=== PATIENT | female | born 1990 | race Caucasian/White ===

== ENCOUNTER → 2018-02-15 16:01 | Outpatient (CLI) | payer OTHER, SELFPAY ==
[2018-02-23 14:37] LABS: HPV Reflexed? NOT INDICATED
== END ==
PROVIDERS: Visit Provider Obstetrics & Gynecology
DX: Z12.4 Encounter for screening for malignant neoplasm of cervix (principal)
CPT/HCPCS: 88175; G0145

== ENCOUNTER → 2018-05-16 15:49 | Outpatient (CLI) | payer OTHER, SELFPAY ==
[2018-05-16 20:01] LABS: Chlamydia Trachomatis by PCR Negative (Negative); Neisserai gonorrhoeae by PCR Negative (Negative); Probe Check PASS; Sample Adequacy Control PASS; Specimen Processing Control PASS
== END ==
PROVIDERS: Visit Provider Obstetrics & Gynecology
DX: Z11.3 Encounter for screening for infections with a predominantly sexual mode of transmission (principal)
CPT/HCPCS: 87491; 87591

== ENCOUNTER → 2018-05-30 15:40 | Outpatient (CLI) | payer OTHER, SELFPAY ==
[2018-05-30 18:01] LABS: Color, Urine Yellow (Yellow); Glucose, Dipstick Normal (Normal); Ketone-Dipstick Negative (Negative); Leukocyte Esterase-Dipstick 100 /ul (Negative); Nitrite-Dipstick Negative (Negative); Occult Blood-Urine Negative /ul (Negative); Protein-Dipstick Negative (Negative); Specific Gravity, Urine 1.015 (1.002-1.030); Urine Bilirubin Dipstick Negative (Negative); Urine Clarity Clear (Clear); Urine Urobilinogen Normal (Normal)
[2018-05-30 18:02] LABS: Absolute Lymphocyte Count 1.58 X10^3/ul (0.83-4.51); Absolute Neutrophil Count 8.4 X10^3/uL (2.0-7.7); Basophil# 0.03 X10^3/uL; Basophil% 0.3 % (0-1); Eosinophil# 0.03 X10^3/uL; Eosinophils% 0.3 % (0-5); Hematocrit 34.9 % (37-47); Hemoglobin 11.8 g/dl (12.0-15.0); Lymphocyte # 1.58 X10^3/ul (4.0); Lymphocyte % 14.6 % (19-41); Mean Corp Hgb Conc 33.8 g/gl (32-36); Mean Corpuscular Hgb 30.4 pg (27.0-32.0); Mean Corpuscular Volume 89.9 fL (81-99); Monocyte# 0.75 X10^3/uL; Monocyte% 6.9 % (0-10); Neutrophil # 8.43 X10^3/uL (2.7-7.7); Neutrophil % 77.7 % (47-70); Platelet Count 346 K/mm3 (150-450); RBC Distribution Width CV 12.8 % (11.6-14.6); RBC Distribution Width SD 41.4 fl (35.1-43.9); Red Blood Count 3.88 M/mm3 (4.2-5.4); White Blood Count 10.8 K/mm3 (4.4-11.0)
[2018-05-30 18:04] LABS: POSITIVE COUNT NO; POSITIVE DIFFERENTIAL NO; POSITIVE MORPHOLOGY NO
[2018-05-30 18:24] LABS: Thyroid Stim Hormone (TSH) 1.63 uIU/mL (0.358-3.74)
[2018-05-30 18:30] LABS: Amphetamine Urine VISTA NEGATIVE (<1000 ng/mL); Barbiturate Urine VISTA NEGATIVE (< 200 ng/mL); Benzodiazepine Urine VISTA NEGATIVE (< 200 ng/mL); Cocaine Urine VISTA NEGATIVE (< 300 ng/mL); Ecstacy Urine VISTA NEGATIVE (< 500 ng/mL); Methadone Urine VISTA NEGATIVE (< 300 ng/mL); PCP Urine VISTA NEGATIVE (< 25 ng/mL); THC Urine VISTA NEGATIVE (< 50 ng/mL); Vista UDS pH Range 6
[2018-05-30 19:04] LABS: HIV - WCH Non-Reactive (Nonreactive); Rubella IgG 231.3 IU/mL
[2018-06-01 10:37] LABS: HEPATITIS B SURFACE AG Negative (Negative); Hep C Antibodies 0.1 s/co ratio (0.0-0.9)
[2018-06-02 01:10] LABS: Prenatal RPR NONREACTIVE (NONREACTIVE)
--- OUTSIDE RECORDS SUMMARY | 2018-08-01 21:44 | XMS RPT_ITS ---
:1990 Author Organization [facility] Care Team Providers Name Role Phone Monica Love Attending Unavailable Monica Love Attending Unavailable Merlyn Mcgee Attending Unavailable PROBLEMS PROBLEMS DATE TYPE CONDITION / CODE ATTENDING STATUS SOURCE 05/30/2018 Unknown Z34.81 - Encounter Monica Love Active Shanna for supervision of Community other normal Hospital , first Repository trimester / Z34.81(ICD-10) 05/16/2018 Unknown Z11.3 - Encounter Monica Love for screening for Community infections with a Hospital predominantly Repository sexual mode of transmission / Z11.3(ICD-10) 02/15/2018 Unknown Z12.4 - Encounter Merlyn Mcgee for screening for Community malignant neoplasm Hospital of cervix / Repository Z12.4(ICD-10) PROCEDURES PROCEDURES No Procedure Records FoundRESULTS RESULTS URINE DRUG SCREEN Collected: 05/30/2018 Status: F Source: [place] (ОЛЕГ) 3:43 PM [facility] RE[facility]ITORY Order Comment: List of Drugs Taken or Suspected? UNK TYPE CODE TESTS RESULT OUT OF RANGE REFERENCE UNITS LAB L505.0075 TO BE Normal CONFIRMED Result Comment: CONFIRMATORY TESTING FOR ALL POSITIVE URINE DRUG SCREEN RESULTS WILL ONLY BE SENT OUT UPON PHYSICIAN ORDER. ОЛЕГ Urine Drug Screen methods provide only preliminary analytical test results. A more specific alternate chemical method must be used in order to obtain a confirmed analytical result. Gas chromatography/mass spectrometery (GC/MS) is the preferred confirmatory method. Clinical consideration and professional judgement should be applied to any drug of abuse test result, particularly when preliminary positive results are used. URINE TCA TESTING MUST BE ORDERED SEPARATELY. USE TEST MNEMONIC: [facility] LAB L505.5005 VISTA UDS PH 6 Normal LAB L505.5015 <1000 ng/mL AMPHETAMINES Normal NEGATIVE LAB L505.5025 < 200 ng/mL BARBITIURATES Normal NEGATIVE LAB L505.5035 < 200 ng/mL BENZODIAZIPINE Normal NEGATIVE LAB L505.5045 < 300 ng/mL COCAINE Normal NEGATIVE LAB L505.5055 < 500 ng/mL ECSTACY Normal NEGATIVE LAB L505.5065 < 300 ng/mL METHADONE Normal NEGATIVE LAB L505.5075 < 300 ng/mL OPIATES Normal NEGATIVE LAB L505.5085 < 25 ng/mL PCP Normal NEGATIVE LAB L505.5095 < 50 ng/mL THC Normal NEGATIVE Performed By: #### L505.5000 #### [facility] [address] [facility] [place], [address] CBC W/DIFF, AUTOMATED Collected: 05/30/2018 Status: F Source: [place] 3:43 PM [facility] TYPE CODE TESTS RESULT OUT OF RANGE REFERENCE UNITS LAB L100.1000 4.4-11.0 K/mm3 Normal WBC 10.8 LAB L100.1200 4.2-5.4 M/mm3 Low RBC 3.88 LAB L100.1300 12.0-15.0 g/dl Low HGB 11.8 LAB L100.1400 37-47 % Low HCT 34.9 LAB L100.1500 81-99 fL Normal MCV 89.9 LAB L100.1600 27.0-32.0 pg Normal MCH 30.4 LAB L100.1700 32-36 g/gl Normal MCHC 33.8 LAB L100.1810 11.6-14.6 % Normal RDW CV 12.8 LAB L100.1820 35.1-43.9 fl Normal RDW SD 41.4 LAB L100.1900 150-450 K/mm3 Normal PLT 346 LAB L100.2000 6.2-12.0 fl Normal MPV 10.0 LAB L100.2100 47-70 % High NEUT% 77.7 LAB L100.2200 19-41 % Low LY% 14.6 LAB L100.2300 0-10 % Normal MONO% 6.9 LAB L100.2400 0-5 % Normal EO% 0.3 LAB L100.2500 0-1 % Normal BASO% 0.3 LAB L100.2550 0.0-0.9 % Normal IM GRAN % 0.200 Result Comment: IG% - Immature Granulocytes (promyelocytes, myelocytes and metamyelocytes) > 1% indicates that a LEFT SHIFT is Present. LAB L100.2620 2.0-7.7 X10 3/uL High Absolute Neut 8.4 LAB L100.2720 0.83-4.51 X10 3/ul Normal Absolute Lymph 1.58 Performed By: #### L100.0100 #### [facility] [address] [place], [place], [address] URINALYSIS, ROUTINE Collected: 05/30/2018 Status: F Source: [place] (DIPST[place]) 3:43 PM [facility] [place] Order Comment: How was Urine Obtained? Urine, Random TYPE CODE TESTS RESULT OUT OF RANGE REFERENCE UNITS LAB L400.3000 Yellow COLOR Normal Yellow LAB L400.3050 Clear Normal CLARITY Clear LAB L400.3200 Normal mg/dl Normal GLUCOSE, UR Normal LAB L400.3300 Negative mg/dL Normal BILIRUBIN URINE Negative LAB L400.3400 Negative mg/dl Normal KETONE UR Negative LAB L400.3465 1.002-1.030 Normal SP.GR. DIPSTX 1.015 LAB L400.3550 5.0 - 8.0 pH UR Normal 6.0 LAB L400.3600 Negative mg/dl PROT Normal DIPSTX Negative LAB L400.3700 Normal mg/dl Normal UROBILI Normal LAB L400.3750 Negative Normal NITRITE UR Negative LAB L400.3780 Negative /ul Normal OCCULT BLOOD-UR Negative LAB L400.3800 Negative /ul High LEUK ESTERASE 100 Performed By: #### L400.2010 #### [facility] [address] [place], [place], [address] THYROID STIM HORMONE Collected: 05/30/2018 Status: F Source: [place] (TSH) 3:43 PM [facility] TYPE CODE TESTS RESULT OUT OF RANGE REFERENCE UNITS LAB L501.9520 0.358-3.74 uIU/mL Normal TSH 1.63 Performed By: #### L501.9520 #### [facility] [address] [place], [place], [address] RUBELLA IGG Collected: 05/30/2018 Status: F Source: [place] 3:43 PM [facility] TYPE CODE TESTS RESULT OUT OF RANGE REFERENCE UNITS LAB L509.4000 IU/mL Normal Rubella IgG 231.3 Result Comment: Antibody results Interpretation of Immune Status < 5 IU/ml Presumed Non-immune 5 - < 10 IU/ml Equivocal > or = 10 IU/ml Presumed Immune Performed By: #### L509.4000, L3890.6005 #### [facility] [address] [facility]. [place], [place], [id number] HIV - [facility] Collected: 05/30/2018 Status: F Source: [place] 3:43 PM [facility] TYPE CODE TESTS RESULT OUT OF RANGE REFERENCE UNITS LAB L3890.6005 Nonreactive Normal HIV - [facility] Non-Reactive Performed By: #### L509.4000, L3890.6005 #### [facility] [place], [address] T AND S-NO Collected: 05/30/2018 Status: F Source: [place] W/PNP 3:43 PM [facility] Order Comment: Reason for Type AND Screen/Red Cells: Surgery? N TYPE CODE TESTS RESULT OUT OF RANGE REFERENCE UNITS LAB B10.0800 O Normal BLOOD POSITIVE TYPE GEL LAB B100.4050 Normal Ab SCREEN NEGATIVE GEL Performed By: #### B100.7550 #### [facility]. [place], [place], [id number] HEPATITIS B SURFACE Collected: 05/30/2018 Status: F Source: [place] AG 3:43 PM [facility] TYPE CODE TESTS RESULT OUT OF RANGE REFERENCE UNITS LAB L3100.0400 Negative Normal HB Negative SURF AG Result Comment: Performed at: [address], [place], [place] [id number] Personnel Scheduler: Derick Ramirez PhD, Phone: [phone] Performed By: #### L3100.0390, L3100.0625 #### [facility] (refer to report for specific site) refer to report for address and phone number HEPATITIS C ANTIBODIES Collected: 05/30/2018 Status: F Source: [place] 3:43 PM [facility] TYPE CODE TESTS RESULT OUT OF RANGE REFERENCE UNITS LAB L3100.0650 0.0-0.9 s/co ratio Normal HEP C AB 0.1 Result Comment: Negative: < 0.8 Indeterminate: 0.8 - 0.9 Positive: > 0.9 The CDC recommends that a positive HCV antibody result be followed up with a HCV Nucleic Acid Amplification test ([id number]). Performed By: #### L3100.0390, L3100.0625 #### [facility] (refer to report for specific site) refer to report for address and phone number RPR Collected: 05/30/2018 Status: F Source: [place] 3:43 PM [facility] TYPE CODE TESTS RESULT OUT OF REFERENCE UNITS RANGE LAB L700.5100 NONREACTIVE Normal RPR NONREACTIVE Performed By: #### L700.5100 #### [facility] [address] [place], [place], [address] CT/NG [facility] BY PCR Collected: 05/16/2018 Status: F Source: [place] 2:15 PM [facility] TYPE CODE TESTS RESULT OUT OF RANGE REFERENCE UNITS LAB L8200.2100 Negative Normal Chlam Negative Trac PCR LAB L8200.2200 Negative Normal NG by Negative PCR Performed By: #### L8200.2000 #### [facility] [address] [facility]. [place], [place], [address] PAP I-G W/RFX HRHPV Collected: 02/15/2018 Status: F Source: [place] 2:25 PM [facility] Order Comment: CYTOLOGY INFORMATION: - CLINICAL INFORMATION: - DATE LMP/MENOPAUSE: 01/19/18 LMP - COLLECTION VIAL: Thin Prep Vial - PLASTER MECHANIC SOURCE: CERVICAL/ENDOCERVICAL - COLLECTION TECHNIQUE: BRUSH/SPATULA Specimen Comment: Source.............Cervix;Endocervix Specimen Comment: LMP / Prev Treat...UHL=[id number] Specimen Comment: No. of containers..01 ThinPrep Vial Specimen Comment: A duplicate report has been generated due to demographic Specimen Comment: updates. TYPE CODE TESTS RESULT OUT OF RANGE REFERENCE UNITS LAB L7400.0800 . Normal DIAGN Comment Result Comment: NEGATIVE FOR INTRAEPITHELIAL LESION AND MALIGNANCY. LAB L7400.0900 . Normal ADEQ Comment Result Comment: Satisfactory for evaluation. Endocervical and/or squamous metaplastic cells (endocervical component) are present. LAB L7400.1400 . Normal PERFORM Comment Result Comment: Kathe Carranza, Customer Advisor Specialist (ASCP) LAB L7400.2575 . Normal TEST METHOD Comment Result Comment: This liquid based ThinPrep(R) pap test was screened with the use of an image guided system. LAB L7400.2600 . Normal . COMM LAB L7400.2700 . Normal PAPSMR Comment Result Comment: The Pap smear is a screening test designed to aid in the detection of premalignant and malignant conditions of the uterine cervix. It is not a diagnostic procedure and should not be used as the sole means of detecting cervical cancer. Both false-positive and false-negative reports do occur. LAB L7400.2800 . Normal HPV RFLX Comment Result Comment: The HPV DNA reflex criteria were not met with this specimen result therefore, no HPV testing was performed. Performed at: [address] [id number] Personnel Scheduler: Patti Howell MD, Phone: [phone] Performed By: #### L7400.0350 #### [facility] (refer to report for specific site) refer to report for address and phone number ALLERGIES ALLERGIES No Allergies Records FoundENCOUNTERS ENCOUNTERS ADMIT/DISCHARGE ACCOUNT ADMITTING ENCOUNTER LOCATION SOURCE NUMBER [facility] 05/30/[id number] ing:[place]BLAB Repository 05/16/[id number] ing:[facility]SPEC Repository 02/15/[id number] ing:[facility]SPEC Repository PAYERS PAYERS ENCOUNTER GUARANTOR PAYER SUBSCRIBER SOURCE 05/30/2018 Giulia Primary Insurance:MED AMAYA [id number] OBRIEN [facility] Number: [place], [place] [id number] Repository [address]Gul: ([phone]) Date:7079-62-21CA [phone] () [address], [place] [address]SN: CHECK WEBSITE 05/30/2018 Secondary NOT GIVENUNK [place] Insurance:SELF PAY [facility] Number: Effective Repository Date:2018-05-30 05/16/2018 Giulia Primary Insurance:MED AMAYA [id number] [facility] Number: [place], [place] [id number] Repository [address]Ecc: [phone]) Date:2514-83-22OY [phone] () [address], [place] [address]XK: CHECK WEBSITE 05/16/2018 Secondary NOT GIVENUNK [place] Insurance:SELF PAY [facility] Number: Effective Repository Date:2018-05-16 02/15/2018 Giulia Primary Insurance:MED AMAYA [id number] MAURAAARTI [facility] Number: [place], [place] [id number] Repository [address]Anb: [phone]) Date:3856-38-06ZA [phone] () [address], [place] [address]TM: CHECK WEBSITE 02/15/2018 Secondary NOT GIVENUNK [place] Insurance:SELF PAY [facility] Number: Effective Repository Date:2018-02-15
== END ==
PROVIDERS: Visit Provider Obstetrics & Gynecology
DX: Z34.81 Encounter for supervision of other normal pregnancy, first trimester (principal)
CPT/HCPCS: 36415; 80307; 81002; 84443; 85025; 86703; 86762; 86803; 87340

== ENCOUNTER → 2018-10-10 | Outpatient (CLI) | payer OTHER, SELFPAY ==
[2018-10-10 17:37] LABS: Hematocrit 30.7 % (37-47); Hemoglobin 10.3 g/dl (12.0-15.0); Mean Corp Hgb Conc 33.6 g/gl (32-36); Mean Corpuscular Hgb 30.7 pg (27.0-32.0); Mean Corpuscular Volume 91.4 fL (81-99); Mean Platelet Vol. 9.8 fl (6.2-12.0); Platelet Count 312 K/mm3 (150-450); RBC Distribution Width SD 43.3 fl (35.1-43.9); Red Blood Count 3.36 M/mm3 (4.2-5.4); White Blood Count 11.1 K/mm3 (4.4-11.0)
[2018-10-10 17:39] LABS: Scan Indicated on CBC? Y/N NO
[2018-10-10 17:43] LABS: Glucose Challenge Gest 1H 50g 111 mg/dL (70-140)
== END | disposition home or self-care (01) ==
LOC: LABSPEC 16:05
PROVIDERS: Visit Provider Obstetrics & Gynecology
DX: Z34.83 Encounter for supervision of other normal pregnancy, third trimester (principal)
CPT/HCPCS: 82950; 85027

== ENCOUNTER → 2018-10-13 | Outpatient (CLI) | payer OTHER, SELFPAY ==
--- NOTE | 2018-10-13 15:22 | US_ITS ---
STUDY: ULTRASOUND BREAST - LEFT REASON FOR EXAM: Female, 28 years old. Axillary lump. Patient is 29 weeks . TECHNIQUE: Axial and longitudinal images of the LEFT breast were performed with a high resolution ultrasound transducer. COMPARISON: None. FINDINGS: LEFT Breast: Targeted ultrasound of the left axilla showed a normal-appearing lymph node measuring 8 mm x 13 mm x 6 mm. No other abnormality is identified. US/Breast Limited Unilateral IMPRESSION: Normal-appearing lymph node in the axillary region as described. No other abnormality. ASSESSMENT CATEGORY: BIRADS Category 2: Benign. A letter regarding these results will be sent to the patient by the facility within 30 days. Electronically Signed: López Mazariegos MD at 17:29 EDT , Service support ,
== END | disposition home or self-care (01) ==
PROVIDERS: Family Provider Family Medicine; PCP Family Medicine; Referring Provider Family Medicine; Visit Provider Family Medicine
DX: L03.122 Acute lymphangitis of left axilla (principal)
CPT/HCPCS: 76642

== ENCOUNTER → 2018-12-08 | Outpatient (CLI) | payer OTHER, SELFPAY | END | disposition home or self-care (01) | LOC: WOBLAB 16:14 | PROVIDERS: Family Provider Family Medicine; PCP Family Medicine; Visit Provider Obstetrics & Gynecology | DX: Z36.85 Encounter for antenatal screening for Streptococcus B (principal) | CPT/HCPCS: 87081 ==

== ENCOUNTER 2019-01-04 20:05 | Inpatient (IN) | payer OTHER, SELFPAY ==
[2019-01-04] MEDS: Lactated Ringers 1,000 ML 50 ML IV (21:00)
[2019-01-04 21:02] VITALS: BMI 32.1
--- NOTE | 2019-01-04 21:09 | PCM.HP.BLA ---
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 Mary-D 24 Hour 180 mg-240 mg tablet,extended release 2. Flonase 50 mcg/actuation nasal spray,suspension REVIEW OF SYSTEMS: GENERAL - Denies fever, or chills SKIN - Denies skin changes EYES - Denies visual changes EARS - Denies difficulty hearing NOSE - allergies MOUTH - Denies sore throat or difficulty swallowing NECK - Denies pain or swelling RESPIRATORY - Denies shortness of breath or wheezing CARDIOVASCULAR - Denies palpitations or chest pain GASTROINTESTINAL - nausea GENITOURINARY - Denies dysuria, frequency of urination, incontinence of urine MUSCULOSKELETAL - Denies joint or muscle pain NEUROLOGICAL - Denies localized numbness or weakness PSYCHIATRIC - Denies depression or anxiety ENDOCRINE - Denies heat or cold intolerance, weight loss or gain HEMATO-IMMUNOLOGIC - Denies excesive bleeding with cuts PAST HISTORY: Breast/Ovarian/Colon Cancers - Denies Infections - varicella vaccine Illnesses - environmental allergies Accidents - no injuries of consequence History of Abnormal PAPS - NO Hospitalizations - see surgery SURGICAL HISTORY: 1. 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 Illicit Drug Use - denies use of street drugs Sexual Activity - 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 Spouse-Sig Other Name - Randell Hogue Spouse-Sig Other Occupation - [employer] Spouse-Sig Other Phone No - [phone] Control - PHYSICAL EXAMINATION CONSTITUTIONAL - NAD, well nourished, and well developed HEENT - Normocephalic, PERRLA, EOMI NECK - No nodes, no nuchal rigidity and thyroid normal size and texture LUNGS - CTA x2 without wheezes, crackles or rales CARDIAC - Regular rate and rhythm without rubs, murmurs, or gallops BREAST - No dominant masses, no tenderness, no axillary adenopathy, no nipple discharge, no skin changes ABDOMEN - Without hepatosplenomegaly, distention, masses, rebound, or guarding; normal bowel sounds; no hernias EXTREMITIES - No edema or calf tenderness NEUROLOGICAL - Cranial nerves II-XII grossly intact PSYCHIATRIC - A and O to time, place, person, mood and affect PAP SMEAR - GC and Chlamydia done and Pap current DETAILED PELVIC EXAM External Genitial Vagina - non-tender without lesions Urethra/Urethral Meatus - non-tender Bladder - non-tender Vagina - vaginal carson are pink and moist without loss of rugae and no evidence of atropy Cervix -4-5 cm, 85% effaced, intact Uterus - normal size, mobile and no tenderness Adnexa - clear without masses or tenderness Antepartum Flow Sheet Highlights: [facility] Dec 07 39 194 132/78 tr - 39 V 1+ 25 -3 [facility] Dec 07 39 191 100/70 - - 39 V 1+ 50 -4 [facility] Dec 07 38 194 98/80 - - 38 V [facility] Dec 07 37 191 100/88 - - 37 V cl TH [facility] Nov 07 33 189 102/68 - - 33 - [facility] Oct 08 31 185 110/72 - - 30 - [facility] Oct 08 28 182 106/70 28 - [facility] September 09 24 175 120/74 tr - 24 - [facility] 09 Apr 4 20 172 100/80 - - - - [facility] Jul 3 17 167 126/68 - - - - [facility] Jun 4 13 162 118/64 - - - - [facility] May 4 9 159 92/60 - - SHORT ANTEPARTUM NOTE(S): Dec Ctxs-occas, FM Noted Dec feeling well. Cervix check. Dec feeling well. Dec feeling well. GBS and LARC today. Nov feeling well. Oct feeling well. Oct c/o stiffness in middle of her back. dg 12 September glucola given-see note Aug feeling well. Jul No problems Jun No problems May feeling well. LONG ANTEPARTUM NOTES: Dec CEPHALIC on US. Membranes stripped. Dec Cervix moderate and VERY posterior. Labor, FM precautions. Dec H&P taken to OB. tkg Dec GBS negative. EB Dec SONO CONFIRMS VTX. Asking about breast pump. Will go through [facility] to have this. Her insurance did not give information re ordering this. Stated to her that she should just get the pump and that we would bill her for that. Advised this is not an office function. May have hospital bill. EB Oct Here for PNV Some inc swelling in ankles. Doing well. On iron supplement. EB 12 September Giulia is here for visit. She relates her dog bumped her in the midddle of the night over the weekend. Good mvmt noted since. Not likely an issue but if has fall or A/A should have 4 hour evaluation. LMT May O positive. Hgb 11.8 g/dl. RI. EB May Giulia is here for her NOB visit at 9 w 4 d, she is a with an DONNY of 12/29/2018. She is accompanied today by her , Randell, and he seems to be interested and supportive. Both are happy to have had the US today. She states that she feels well, denies nausea. Office practice patterns reviewed, and she is aware of what labs entail. Office ed literature given a MM visit. Emergencies/danger signs to report, s/s of a UTI, round ligament pain, and common OTC medications approved/not approved for use during reviewed. Delivery at [facility] is planned with a likely epidural, and she will breastfeed. Discussed and encouarged office and childbirth ed classes. Se takes an OTC vitamin that contains DHA. Giulia is a life long non-smoker, and denies use of drugs or ETOH. Genetic Screening form completed, she is of [place] descent, and has not been tested for b-thalassemia, nor does she know of anyone in her family that has been tested or has the disease. She would like to have MSAFP drawn, and declines CF testing; consent signed as such. She eats a generally well balanced diet, and drinks a gallon of water a day; encouraged to continue to do so. Reviewed caloric needs, recommended weight gain, limiting empty calories, and limiting caffeine to one cup a day. Printed guide for food safety during provided with review. Encouarged recommended physical activity, reviewed Kegel exercises, and lifting restrictions. Giulia voices understanding of all information provided during NOB visit, and has no questions following same. To [facility] draw station for labs. AW May Cervical cultures NEG. EB May Here for appt to confirm , establish care. Pap current and WNL, collected in Feb 2018 EB May Giulia is here for missed menses appt with her Randell. She relates LMP 1116, + UPT today in office, approx EDC 12/29/18. She has mild nausea but it has not been bad. Taking OTC PNV. Reviewed folic acid or folate is ok in the PNV. May add DHA in third trimester for brain and eye development.. She is a non-smoker, occ ETOH use and none in . Educational materials are provided and reviewed. OTC meds for minor discomforts discussed. Ok to use Mary and Flonase for allergies. Add approx 300 extra calories per day, increased fluids as tolerated, and 30 minutes of exercise 5x/wk. Pap is current and culture to be done today. LMT Labs for : GIULIA HOGUE since 04/03/2018 ORDER DATEIN DESCRIPTION VALUE UNITS RANGE A+ COMMENT CULTURE, GROUP B STREPTOCOCCUS 12/08/18 NOTE Original Ordering Provider: Monica Love LIBBY Culture Group B Beta Streptococcus is not isolated. Reviewed by MONICA GLUCOSE CHALLENGE GEST 1H 50G 10/10/18 NOTE Original Ordering Provider: Monica Love GLU GEST 50G 1H 111 mg/dL 70-140 Reviewed by MONICA CBC-COMPLETE BLOOD CNT NO DIFF 10/10/18 NOTE Original Ordering Provider: Monica Love WBC 11.1 K/mm3 4.4-11.0 H RBC 3.36 M/mm3 4.2-5.4 L HGB 10.3 g/dl 12.0-15.0 L HCT 30.7 % 37-47 L MCV 91.4 fL 81-99 MCH 30.7 pg 27.0-32.0 MCHC 33.6 g/gl 32-36 RDW CV 13.0 % 11.6-14.6 RDW SD 43.3 fl 35.1-43.9 PLT 312 K/mm3 150-450 MPV 9.8 fl 6.2-12.0 Reviewed by MONICA RPR 05/30/18 NOTE Original Ordering Provider: Monica Love RPR NONREACTIVE NONREACTIVE Reviewed by MONICA HEPATITIS C ANTIBODIES 05/30/18 NOTE Original Ordering Provider: Monica Love HEP C AB 0.1 s/co ratio 0.0-0.9 Negative: < 0.8 Indeterminate: 0.8 - 0.9 Positive: > 0.9 The CDC recommends that a positive HCV antibody result be followed up with a HCV Nucleic Acid Amplification test (974119). Reviewed by MONICA HEPATITIS B SURFACE AG 05/30/18 NOTE Original Ordering Provider: Monica Love HB SURF AG Negative Negative Performed at: [address] [id number] Master Ship: Derick Ramirez PhD, Phone: [phone] Reviewed by MONICA T AND S-NO CHARGE W/PNP 05/30/18 Reason for Type AND Screen/Red Cells: Surgery? [facility]~[address] [place], [address]~ BLOOD TYPE GEL O POSITIVE N AB SCREEN GEL NEGATIVE N Reviewed by MONICA HIV - [facility] 05/30/18 NOTE Original Ordering Provider: Monica Love HIV - [facility] Non-Reactive Nonreactive Reviewed by MONICA RUBELLA IGG 05/30/18 NOTE Original Ordering Provider: Monica Love RUBELLA IGG 231.3 IU/mL Antibody results Interpretation of Immune Status < 5 IU/ml Presumed Non-immune 5 - < 10 IU/ml Equivocal > or = 10 IU/ml Presumed Immune Reviewed by MONICA URINE DRUG SCREEN (VISTA) 05/30/18 NOTE Original Ordering Provider: Monica Love TO BE CONFIRMED CONFIRMATORY TESTING FOR ALL POSITIVE URINE DRUG SCREEN RESULTS WILL ONLY BE SENT OUT UPON PHYSICIAN ORDER. VISTA Urine Drug Screen methods provide only preliminary analytical test results. A more specific alternate chemical method must be used in order to obtain a confirmed analytical result. Gas chromatography/mass spectrometery (GC/MS) is the preferred confirmatory method. Clinical consideration and professional judgement should be applied to any drug of abuse test result, particularly when preliminary positive results are used. URINE TCA TESTING MUST BE ORDERED SEPARATELY. USE TEST MNEMONIC: [facility] VISTA UDS PH 6 AMPHETAMINES NEGATIVE <1000 ng/mL BARBITIURATES NEGATIVE < 200 ng/mL BENZODIAZIPINE NEGATIVE < 200 ng/mL COCAINE NEGATIVE < 300 ng/mL ECSTACY NEGATIVE < 500 ng/mL METHADONE NEGATIVE < 300 ng/mL OPIATES NEGATIVE < 300 ng/mL PCP NEGATIVE < 25 ng/mL THC NEGATIVE < 50 ng/mL Reviewed by MONICA THYROID STIM HORMONE (TSH) 05/30/18 NOTE Original Ordering Provider: Monica Love TSH 1.63 uIU/mL 0.358-3.74 Reviewed by MONICA URINALYSIS, ROUTINE (DIPSTICK) 05/30/18 NOTE Original Ordering Provider: Monica Love COLOR Yellow Yellow CLARITY Clear Clear GLUCOSE, UR Normal mg/dl Normal BILIRUBIN URINE Negative mg/dL Negative KETONE UR Negative mg/dl Negative SP.GR. DIPSTX 1.015 1.002-1.030 PH UR 6.0 5.0 - 8.0 PROT DIPSTX Negative mg/dl Negative UROBILI Normal mg/dl Normal NITRITE UR Negative Negative OCCULT BLOOD-UR Negative /ul Negative LEUK ESTERASE 100 /ul Negative H Reviewed by MONICA CBC W/DIFF, AUTOMATED 05/30/18 NOTE Original Ordering Provider: Monica Love WBC 10.8 K/mm3 4.4-11.0 RBC 3.88 M/mm3 4.2-5.4 L HGB 11.8 g/dl 12.0-15.0 L HCT 34.9 % 37-47 L MCV 89.9 fL 81-99 MCH 30.4 pg 27.0-32.0 MCHC 33.8 g/gl 32-36 RDW CV 12.8 % 11.6-14.6 RDW SD 41.4 fl 35.1-43.9 PLT 346 K/mm3 150-450 MPV 10.0 fl 6.2-12.0 NEUT% 77.7 % 47-70 H LY% 14.6 % 19-41 L MONO% 6.9 % 0-10 EO% 0.3 % 0-5 BASO% 0.3 % 0-1 IM GRAN % 0.200 % 0.0-0.9 IG% - Immature Granulocytes (promyelocytes, myelocytes and metamyelocytes) > 1% indicates that a LEFT SHIFT is Present. ABSOLUTE NEUT 8.4 X10 3/uL 2.0-7.7 H ABSOLUTE LYMPH 1.58 X10 3/ul 0.83-4.51 Reviewed by MONICA Reviewed by MONICA STARKEY/LEANA [facility] BY PCR 05/16/18 NOTE Original Ordering Provider: Monica [facility] PCR Negative Negative NG BY PCR Negative Negative Reviewed by MONICA Impression/plan: 40 weeks 6-day gestation in active labor. Expect spontaneous vaginal delivery.
[2019-01-04] MEDS: Lactated Ringers 500 ML 999 ML IV (21:10)
[2019-01-04 21:22] LABS: Absolute Neutrophil Count 10.1 X10^3/uL (2.0-7.7); Basophil# 0.03 X10^3/uL; Basophil% 0.2 % (0-1); Eosinophil# 0.05 X10^3/uL; Eosinophils% 0.4 % (0-5); Hematocrit 32.7 % (37-47); Hemoglobin 11.1 g/dL (12.0-15.0); Lymphocyte % 9.6 % (19-41); Mean Corp Hgb Conc 33.9 g/dL (32-36); Mean Corpuscular Hgb 31.7 pg (27.0-32.0); Mean Corpuscular Volume 93.4 fL (81-99); Mean Platelet Vol. 10.1 fl (6.2-12.0); NRBC Flagged by Analyzer 0 % (0-5); Neutrophil # 10.12 X10^3/uL (2.7-7.7); Neutrophil % 81.3 % (47-70); Platelet Count 255 K/mm3 (150-450); RBC Distribution Width CV 13.4 % (11.6-14.6); RBC Distribution Width SD 45.5 fl (35.1-43.9); White Blood Count 12.5 K/mm3 (4.4-11.0)
[2019-01-04] MEDS: fentaNYL-bupivacaine (epidural) 100 ML BAG EPIDURAL (22:15)
[2019-01-05] MEDS: Lactated Ringers 1,000 ML 200 ML IV ×3 (02:04→12:02)
[2019-01-05] MEDS: fentaNYL-bupivacaine (epidural) 100 ML BAG EPIDURAL ×3 (02:20→11:52)
[2019-01-05] MEDS: Oxytocin 30 units/NS 500 ml 30 UNITS/500 ML IV.SOLN IV (07:52)
[2019-01-05] MEDS: 0.9% Saline Lock 10 ML Syringe IV (10:22)
[2019-01-05] MEDS: Ondansetron 4 MG/2 ML Vial IV (10:22)
[2019-01-05] MEDS: Acetaminophen 325 MG Tablet PO (14:39)
[2019-01-05] MEDS: Oxytocin 30 units/NS 500 ml 30 UNITS/500 ML IV.SOLN 334 UNITS IV (16:09)
[2019-01-05] MEDS: Ibuprofen 600 MG Tablet PO (18:31)
[2019-01-05 20:00] VITALS: BP 108/55; PULSE 77; RESP 18; TEMP 35.9
[2019-01-06] VITALS: BP 103/57; PULSE 64; RESP 18; TEMP 36.1
[2019-01-06] MEDS: Ibuprofen 600 MG Tablet PO ×4 (00:59→22:02)
[2019-01-06 04:00] VITALS: BP 113/68; PULSE 67; RESP 18; TEMP 36.2
--- NOTE | 2019-01-06 07:28 | PCM.OPRPT ---
Report of Operation Date of Procedure: 01/05/19 Pre-Operative Diagnosis: 41 wk labor Post-Operative Diagnosis: same Surgery/Procedure Performed:: Type of Anesthesia:: Epidural Estimated Blood Loss (mL): 350 Fluids Replaced: LR Vaginal Delivery Maternal Presentation: Active Labor 40 6/7 wk early labor Amniotic Membrane Rupture Type: Artificial Amniotic Fluid Description: Clear Final DONNY: 12/29/18 Gestational age: 41 Weeks and 0 Days Date of Procedure: 01/05/19 Pre-Operative Diagnosis: 40 6/7 wk labor Post-Operative Diagnosis: 41 wk delivery Surgery/ Procedure Performed: Spontaneous Vaginal Delivery Type of Anesthesia: Epidural Description of Procedure: of a baker viable male over intact perineum to lacerations. Head delivered LUIS. OP and nares bulb suctioned on perineum. No nuchal cord. Shoulders delivered easily. infant to maternal abdomen. Cord clamped times two and cut. Ap 8/9 Routine cord blood for typing obtained. PP exam: 2nd deg posterior vaginal and perineal laceration. Repaired to hemostatic, intact with 3-0 Vicryl no other lacerations noted. Placenta delivered by spont expulsion, expression. 3V cord, normal appearing, intact with trailing membranes EBL 350 cc pt and infant tolerated delivery well. to recovery, stable condition Ray Zac and needle counts correct times two. Presentation: Vertex, LUIS Placental Delivery Description: Spontaneous, Expressed Placenta Disposition: [facility] Cord Vessel Description: 3 Vessels Cord Entanglement: None Drain: Arevalo to straight drain Estimated Blood Loss: 350 A gender: Male (1 minute): 8 (5 minute): 9 Episiotomy Description: None Laceration: Midline, Perineal Extension/lac, Vaginal Extension/lac, 2nd degree Medications given after delivery: IV Pitocin Complications: None
--- NOTE | 2019-01-06 07:33 | DCINST_ITS ---
Discharge Diet: No Restrictions Discharge Activity: May Shower, May Take a Tub Bath May resume sexual activity in: 4-6 weeks Additional Instructions: If you experience any of the following, contact your healthcare provider. * Bleeding that soaks a pad every hour for 2 hours * Fever 100.4 or higher * Unrelieved abdominal pain * Problems urinating (including inability to urinate or burning while urinating). * Visual changes * Severe headache * Flu-like symptoms * Pain or redness in one of both of your breasts * Pain, warmth, tenderness or swelling in your legs, especially the calf area * Frequent nausea and vomiting * Symptoms of depression or anxiety If you experience any of the following, call 911 or go to the nearest Emergency Room. * Chest pain * Problems breathing * Seizure activity * Partial or complete paralysis of a body part, slurred speech, weakness or drooping of the face, or a sudden inability to walk or hold your balance Allergies/Adverse Reactions: Allergies No Known Allergies Allergy (Verified 01/04/19 20:59) Medications to take at Discharge Ferrous Sulfate [Iron] 325 mg PO DAILY 01/04/19 Fexofenadine HCl [Mary Allergy] 180 mg PO DAILY 01/04/19 Please Follow Up With: Monica Love MD - [phone] When: Call to make an appointment with your doctor in 6 weeks. If you had el evated Blood Pressure or 4th degree laceration you will need to be seen in 2 weeks. Primary Care Physician: Astrid Guerrero MD [Primary Care Provider] - Test Results: Test results from this visit will be discussed in further detail at your follow- up appointment, if applicable. Proposed Discharge Date: 01/07/19
--- NOTE | 2019-01-06 07:33 | PCM.DCVAG ---
Discharge Diet: No Restrictions Discharge Activity: May Shower, May Take a Tub Bath May resume sexual activity in: 4-6 weeks Additional Instructions: If you experience any of the following, contact your healthcare provider. Bleeding that soaks a pad every hour for 2 hours Fever 100.4 or higher Unrelieved abdominal pain Problems urinating (including inability to urinate or burning while urinating). Visual changes Severe headache Flu-like symptoms Pain or redness in one of both of your breasts Pain, warmth, tenderness or swelling in your legs, especially the calf area Frequent nausea and vomiting Symptoms of depression or anxiety If you experience any of the following, call 911 or go to the nearest Emergency Room. Chest pain Problems breathing Seizure activity Partial or complete paralysis of a body part, slurred speech, weakness or drooping of the face, or a sudden inability to walk or hold your balance Allergies/Adverse Reactions: Allergies No Known Allergies Allergy (Verified 01/04/19 20:59) Medications to take at Discharge Ferrous Sulfate [Iron] 325 mg PO DAILY 01/04/19 Fexofenadine HCl [Mary Allergy] 180 mg PO DAILY 01/04/19 Please Follow Up With: Monica Love MD - [phone] When: Call to make an appointment with your doctor in 6 weeks. If you had elevated Blood Pressure or 4th degree laceration you will need to be seen in 2 weeks. Primary Care Physician: Astrid Guerrero MD [Primary Care Provider] - Test Results: Test results from this visit will be discussed in further detail at your follow-up appointment, if applicable. Proposed Discharge Date: 01/07/19
--- NOTE | 2019-01-06 07:56 | PCM.PN.OB ---
Subjective: PPD#1 41 wk Doing well. Some pain at perineum and some cramping. will write for Dermoplast spray prn. Breast feeding but not well yet. - Physical Exam General: Alert, Oriented x3, Cooperative, No apparent distress HEENT: Atraumatic, EOMI Neck: Supple Abdomen: Soft - Fundus firm NT well inferior to umbilicus Psych/Mental Status: Normal Affect Vital Signs Temp Pulse Resp BP 97.2 F L 67 18 113/68 01/06/19 04:00 01/06/19 04:00 01/06/19 04:00 01/06/19 04:00 Weight: 87.453 kg Body Mass Index (BMI) 32.1 Intake and Output for Last 24 Hours 01/04/19 01/05/19 01/06/19 23:59 23:59 23:59 Intake Total 508.33 / 508.33 5123.69 / 5123.69 Output Total 3450 / 3450 1999 Balance 508.33 / 508.33 1673.69 / 1673.69 -1999 Medical Necessity - Tobacco Use Smoking Status: Never smoker Assessment/Plan PPD#1 41 wks Stable pp . continue care
[2019-01-06 08:00] VITALS: BP 120/60; PULSE 78; RESP 14; TEMP 36.1; O2SAT 96
[2019-01-06] MEDS: Senna/Docusate Sodium 1 Tablet PO (08:18)
[2019-01-06] MEDS: Dibucaine 30 GM Tube 1 APPLIC TOPICAL (08:19)
[2019-01-06 12:00] VITALS: BP 107/56; PULSE 86; RESP 16; TEMP 36.2; O2SAT 98
[2019-01-06 16:00] VITALS: BP 102/56; PULSE 70; RESP 16; TEMP 36.2; O2SAT 97
[2019-01-06 20:20] VITALS: BP 112/71; PULSE 68; RESP 16; TEMP 36.4
[2019-01-07 03:05] VITALS: BP 115/65; PULSE 78; RESP 16; TEMP 36.4; O2SAT 95
[2019-01-07] MEDS: Acetaminophen 500 MG Tablet 1000 MG PO ×2 (04:38→13:18)
--- NOTE | 2019-01-07 08:00 | PCM.PN.OB ---
Subjective: PPD#2 Breast feeding. some difficulty still. Feeling better and denies any significant pain. Circ done. - Physical Exam General: Alert, Oriented x3, Cooperative, No apparent distress HEENT: Atraumatic, EOMI Neck: Supple Psych/Mental Status: Normal Affect Vital Signs Temp Pulse Resp BP Pulse Ox 97.5 F L 78 16 115/65 95 01/07/19 03:05 01/07/19 03:05 01/07/19 03:05 01/07/19 03:05 01/07/19 03:05 Oxygen Delivery Method Room Air Weight: 87.453 kg Body Mass Index (BMI) 32.1 Intake and Output for Last 24 Hours 01/05/19 01/06/19 01/07/19 23:59 23:59 23:59 Intake Total 5123.69 / 5123.69 Output Total 3450 / 3450 2600 / 2600 Balance 1673.69 / 1673.69 -2600 / -2600 Medical Necessity - Tobacco Use Smoking Status: Never smoker Assessment/Plan PPD#2 41 wks Stable pp . Home today.
[2019-01-07 08:15] VITALS: BP 113/72; PULSE 72; RESP 16; TEMP 36.1
[2019-01-07] MEDS: Ibuprofen 600 MG Tablet PO (09:26)
[2019-01-07] MEDS: Senna/Docusate Sodium 1 Tablet PO (13:18)
[2019-01-07 15:24] VITALS: BP 119/67; PULSE 71; RESP 16; TEMP 36.9
== END 2019-01-07 17:05 | disposition home or self-care (01) | DRG 807 ==
PROVIDERS: Obstetrics & Gynecology; Admitting Provider Obstetrics & Gynecology; Family Provider Family Medicine; PCP Family Medicine; Referring Provider Obstetrics & Gynecology; Visit Provider Obstetrics & Gynecology
DX: O48.0 Post-term pregnancy (principal); Z37.0 Single live birth; Z3A.40 40 weeks gestation of pregnancy; O70.1 Second degree perineal laceration during delivery
CPT/HCPCS: 59025; 59050; 85025; 86850; 86900; 86901; 99218; J7120; A4216; G0378; J2405

== ENCOUNTER → 2019-01-25 11:40 | Outpatient (CLI) | payer OTHER, SELFPAY ==
[2019-01-04 21:02] VITALS: BMI 32.1
== END ==
PROVIDERS: Family Provider Family Medicine; PCP Family Medicine; Referring Provider Obstetrics & Gynecology; Visit Provider Obstetrics & Gynecology
DX: O92.79 Other disorders of lactation (principal)
CPT/HCPCS: 96152

== ENCOUNTER → 2019-08-28 | Outpatient (CLI) | payer OTHER, SELFPAY ==
[2019-08-28 08:38] VITALS: BMI 32.1
--- NOTE | 2019-08-28 09:01 | RAD_ITS ---
STUDY: X-RAY - RIGHT WRIST REASON FOR EXAM: Right wrist pain and swelling since injury May, no specific injury. TECHNIQUE: 3 view(s) of the wrist were obtained. COMPARISON: None. FINDINGS: Normal visualized distal radius and ulna. There is negative ulnar variance. Normal radiocarpal articulation. Normal distal radioulnar articulation. Normal carpal bones. Normal carpal articulations. Normal carpometacarpal articulation of the thumb. Normal second through fifth carpometacarpal articulations. Normal visualized metacarpal bones. There is a bone island in the first metacarpal. The soft tissue structures are unremarkable. RAD/Wrist min 3 Views IMPRESSION: Negative ulnar variance. Otherwise, unremarkable x-ray examination of the right wrist. Electronically Signed: Ata Correa MD at 9:26 EDT Tel , Service support ,
== END | disposition home or self-care (01) ==
LOC: MTRAD 09:01
PROVIDERS: PCP Family Medicine; Referring Provider Orthopaedic Surgery; Visit Provider Orthopaedic Surgery
DX: M65.4 Radial styloid tenosynovitis [de Quervain] (principal)
CPT/HCPCS: 73110

== ENCOUNTER 2019-09-05 07:57 | Outpatient (RCR) | payer OTHER, SELFPAY ==
[2019-08-28 08:38] VITALS: BMI 32.1
--- NOTE | 2020-01-09 14:37 | HP.OTEVAL ---
Patient's Visit Information GIULIA HOGUE is a 29 year old F, referred to Occupational Therapy by Dr. Merlyn Baker DO, with a diagnosis of Dequrvains. Date of Evaluation: 09/05/19 Occupational Therapist: Chanell Patel, JOANNA/Parth, CHT - Subjective This 28 year old female was seen for OT eval with dx of Dequrvains. pt states symptoms were present in May when she saw her family dr. Family put her on anti-inflamitory that did help but pain returned. pt is right handed- pain comes and goes- most bothersome with wrist motion. 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 - Pain right wrist 4 Pain Intensity Range: 0, 6 - ROM Wrist: right 65/60 left 70/75 ROM Comments: right RD 10* UD 15*. leftRD 15* UD 35* - Strength Actuarial Consultant: right 60# left 50# Lateral Pinch: right 10# left 10# Tripod Pinch: right 10# left 12# - Edema Wrist: right 15.5cm left 15.5cm - Quick DASH-Disab of Arm,Shoulder& Hand Quick DASH Score: 30.0000 - Goals Goal:: pt will report pain no greater than 1/10 with use of hand with work tasks Goal:: pt will demo ind donning/doffing of orthosis by end of 1st session. pt will demo understanding of skin care precautions by end of 1st session-. pt will demo understanding to return to clinic for othosis adj. as needed. - Rehabilitation General Assessment: pt demo need for custom orthosis to decrease pain in 1st dorsal region of right wrist. Today therapist ed. pt on dequrvains, use of ice, ROM ex and use of orthosis. Pt demo understanding and agree to return to clinic for orthosis adj.as needed. pt to return to DrRafael if pain did not improve. Rehabilitation Potential: Good - Anticipated Interventions Triggerpoint Release, Modalities, Orthoses, Joint Protection/Energy Conservation, Ergonomic Education - Visit Plan Frequency: 1-2x /Week Duration: 4 Weeks TEXT: Thank you for the opportunity to evaluate your patient. For Medicare and Medicare HMO plans, please review the plan of care and approve it. It will need to be FAXED BACK to us at [phone] for Medicare purposes. Please let me know if there are questions or concerns regarding this plan of care. Physician Signature: Date:
--- NOTE | 2020-01-09 14:37 | HP.OT.NRP ---
GIULIA HOGUE was seen in my office for initial evaluation on 09/05/19. The following Plan of Care was established for this patient: Pt was seen for Eval only and a custom orthosis was meghan. pt was ed.in use and care. Pt demo ind. of doffing/donning of orthosis and will return to clinic if adj needed made. Pt has not returned and due to time lapse in care pt d/c. Initial Frequency: 1-2x /Week Initial Duration: 4 Weeks Anticipated Interventions: Triggerpoint Release, Modalities, Orthoses, Joint Protection/Energy Conservation, Ergonomic Education This patient was last seen in our office . Pertinent comments regarding their Occupational therapy will appear below: At this point I will be discontinuing this patient from occupational therapy. I would be happy to see this patient again in the future if found appropriate by the physician. Thank you! Chanell Patel, OTR/L, CHT
== END 2019-09-05 19:00 | disposition home or self-care (01) ==
LOC: OT 07:57
PROVIDERS: PCP Family Medicine; Referring Provider Orthopaedic Surgery; Visit Provider Orthopaedic Surgery
DX: M65.4 Radial styloid tenosynovitis [de Quervain] (principal)
CPT/HCPCS: 97166; 97760

== ENCOUNTER → 2020-06-05 | Outpatient (CLI) | payer OTHER, SELFPAY ==
[2019-08-28 08:38] VITALS: BMI 32.1
== END | disposition home or self-care (01) ==
LOC: LABSPEC 10:39
PROVIDERS: PCP Family Medicine; Visit Provider Family Medicine
DX: Z20.822 Contact with and (suspected) exposure to COVID-19 (principal)
CPT/HCPCS: 87635; U0005; U0003

== ENCOUNTER → 2021-01-23 09:39 | Outpatient (CLI) | payer OTHER, SELFPAY ==
[2021-01-23 09:55] LABS: Absolute Lymphocyte Count 1.36 X10^3/uL (0.83-4.51); Absolute Neutrophil Count 5.2 X10^3/uL (2.0-7.7); Basophil# 0.04 X10^3/uL; Basophil% 0.5 % (0-1); Eosinophil# 0.05 X10^3/uL; Eosinophils% 0.7 % (0-5); Hematocrit 33.1 % (37-47); Hemoglobin 11.2 g/dL (12.0-15.0); Lymphocyte # 1.36 X10^3/ul (0.83-4.51); Lymphocyte % 18.7 % (19-41); Mean Corp Hgb Conc 33.8 g/dL (32-36); Mean Corpuscular Hgb 30.9 pg (27.0-32.0); Mean Corpuscular Volume 91.2 fL (81-99); Mean Platelet Vol. 9.3 fl (6.2-12.0); Monocyte# 0.57 X10^3/uL; Monocyte% 7.8 % (0-10); NRBC Flagged by Analyzer 0 % (0-5); Neutrophil # 5.24 X10^3/uL (2.7-7.7); Platelet Count 267 K/mm3 (150-450); RBC Distribution Width CV 12.9 % (11.6-14.6); RBC Distribution Width SD 43.1 fl (35.1-43.9); Red Blood Count 3.63 M/mm3 (4.2-5.4); White Blood Count 7.3 K/mm3 (4.4-11.0)
[2021-01-23 11:03] LABS: HIV - WCH Non-Reactive (Nonreactive); Hepatitis B Surface Antigen Non-Reactive (Nonreactive); Hepatitis C Antibody Non-Reactive (Nonreactive); Rubella IgG Reactive (Nonreactive); Syphilis Antibodies Non-reactive
[2021-01-27 03:07] LABS: Chlamydia By Nucleic Acid AMP Negative (Negative)
[2021-01-27 13:59] LABS: Gonococcus By Nucleic Acid AMP Negative (Negative)
[2021-01-27 20:19] LABS: HPV APTIMA, High Risk Negative (Negative)
== END ==
PROVIDERS: PCP Family Medicine; Visit Provider Obstetrics & Gynecology
DX: Z34.81 Encounter for supervision of other normal pregnancy, first trimester (principal)
CPT/HCPCS: 36415; 85025; 86703; 86762; 86780; 86803; 87086; 87340; 87491; 87591; 87624; 88175; G0145

== ENCOUNTER 2021-05-21 15:43 | Outpatient (CLI) | payer OTHER, SELFPAY ==
[2021-05-21 16:49] LABS: Hemoglobin 11.7 g/dL (12.0-15.0); Mean Corp Hgb Conc 32.5 g/dL (32-36); Mean Corpuscular Hgb 30.8 pg (27.0-32.0); Mean Corpuscular Volume 94.7 fL (81-99); Mean Platelet Vol. 9.7 fl (6.2-12.0); Platelet Count 321 K/mm3 (150-450); RBC Distribution Width SD 44.9 fl (35.1-43.9); White Blood Count 10.5 K/mm3 (4.4-11.0)
[2021-05-21 17:09] LABS: Glucose Challenge Gest 1H 50g 100 mg/dL (70-140)
== END 2021-05-21 23:59 | disposition short-term general hospital (02) ==
LOC: WOBLAB 15:44
PROVIDERS: PCP Family Medicine; Visit Provider Student in an Organized Health Care Education/Training Program
DX: Z34.82 Encounter for supervision of other normal pregnancy, second trimester (principal)
CPT/HCPCS: 36415; 82950; 85027

== ENCOUNTER 2021-05-28 17:57 | Outpatient (CLI) | payer OTHER, SELFPAY | END 2021-05-28 23:59 | disposition short-term general hospital (02) | PROVIDERS: PCP Family Medicine; Referring Provider Family Medicine; Visit Provider Family Medicine | DX: Z20.828 Contact with and (suspected) exposure to other viral communicable diseases (principal) | CPT/HCPCS: 87635; U0003; U0005 ==

== ENCOUNTER 2021-08-14 10:28 | Outpatient (CLI) | payer OTHER, SELFPAY | END 2021-08-14 23:59 | disposition home or self-care (01) | LOC: LABSPEC 10:34 | PROVIDERS: PCP Family Medicine; Visit Provider Student in an Organized Health Care Education/Training Program | DX: Z36.85 Encounter for antenatal screening for Streptococcus B (principal) | CPT/HCPCS: 87081 ==

== ENCOUNTER 2021-09-03 22:15 | Inpatient (IN) | payer OTHER, SELFPAY ==
[2021-09-03] VITALS (10 sets, daily range): BP systolic 102–128; BP diastolic 62–76; PULSE 66–127; TEMP 36.4–37.1; O2SAT 81–98; BMI 32.1
--- NOTE | 2021-09-03 20:02 | HP.PCM.OB_ITS ---
History and Physical Date of Admission: 09/03/21 Chief complaint: tachycardia History present illness: 30-year-old at 39 weeks and 2 days with DONNY 09/08/21 by 7-week ultrasound arrived from the office with tachycardia. Denies headache, visual changes, chest pain, shortness of breath, nausea vomiting, right upper quadrant pain. Patient states good movement. Obstetric history: G1: 41-week male 12/2018 G2: Current Past medical history: None Medications: vitamin Past surgical history: [place] teeth extraction Allergies: No known drug allergies Social history: Denies smoking, alcohol use, drug use Family history: Denies history DVT or PE Review of systems: Besides above pertinent positives a full review of systems was performed and found to be negative Physical exam: Vitals: Blood pressure 128/71 pulse 74 SPO2 97% on room air General: Normal-appearing no acute distress none HEENT: Normocephalic atraumatic no cervical of adenopathy Cardiac/respiratory: No use of accessory muscles, nonlabored breathing Abdomen: Soft, nontender, gravid Extremities: No peripheral edema normal peripheral pulses Psych: Normal affect normal demeanor nonpressured speech Assessment plan: 30-year-old G2, P1 at 39 weeks and 2 days with with heart rate tracing that reveals moments of tachycardia along with marked variability and possible decelerations. Overall majority of tracing normal baseline/moderate variability/positive accelerations/negative decelerations and reassuring. But overall discussed patient at 39 weeks term and advised for induction of labor, discussed risk benefits alternatives. Patient this time does not wish for induction of labor, declines. Patient amenable to overnight monitoring, reasonable. We will continue to monitor overnight
[2021-09-03 22:11] LABS: ROM Internal Control Test YES-OK TO RESULT pt. (Internal QC); ROM Patient Test POSITIVE (Negative)
[2021-09-03 22:52] LABS: Absolute Lymphocyte Count 1.48 X10^3/uL (0.83-4.51); Absolute Neutrophil Count 8.5 X10^3/uL (2.0-7.7); Basophil# 0.03 X10^3/uL; Basophil% 0.3 % (0-1); Eosinophil# 0.02 X10^3/uL; Eosinophils% 0.2 % (0-5); Hematocrit 35.4 % (37-47); Lymphocyte # 1.48 X10^3/ul (0.83-4.51); Lymphocyte % 13.7 % (19-41); Mean Corp Hgb Conc 33.9 g/dL (32-36); Mean Corpuscular Hgb 31.6 pg (27.0-32.0); Mean Corpuscular Volume 93.2 fL (81-99); Mean Platelet Vol. 10.2 fl (6.2-12.0); Monocyte# 0.74 X10^3/uL; Monocyte% 6.8 % (0-10); NRBC Flagged by Analyzer 0 % (0-5); Neutrophil # 8.48 X10^3/uL (2.7-7.7); Neutrophil % 78.4 % (47-70); Platelet Count 260 K/mm3 (150-450); RBC Distribution Width CV 13.2 % (11.6-14.6); RBC Distribution Width SD 44.8 fl (35.1-43.9); White Blood Count 10.8 K/mm3 (4.4-11.0)
[2021-09-03] MEDS: Lactated Ringers 500 ML 999 ML IV (23:11)
[2021-09-04] VITALS (68 sets, daily range): BP systolic 90–119; BP diastolic 50–74; PULSE 62–89; RESP 16; TEMP 36.5–37.2; O2SAT 93–99
[2021-09-04] MEDS: Lactated Ringers 1,000 ML 200 ML IV ×2 (01:01→08:39)
[2021-09-04] MEDS: fentaNYL-bupivacaine (epidural) 100 ML BAG EPIDURAL ×3 (01:03→10:33)
--- NOTE | 2021-09-04 06:41 | PN.OBGYN_ITS ---
Subjective Subjective No overnight complaints. Comfortable with epidural Objective Data Objective Data Vital Signs: Vital Signs Temp Pulse BP Pulse Ox 99.0 F 74 95/53 L 95 09/04/21 03:50 09/04/21 05:00 09/04/21 05:00 09/04/21 05:00 Weight: 187 lb Body Mass Index (BMI) 32.1 Intake & Output: Intake and Output for Last 24 Hours 09/02/21 09/03/21 09/04/21 23:59 23:59 23:59 Intake Total 500 / 500 Balance 500 / 500 Lab / Micro Data Result Diagrams: 09/03/21 22:40 Labs: Laboratory Results - last 24 hr 09/03/21 21:45: Vag Amniotic Fld Detect POSITIVE H 09/03/21 22:40: WBC 10.8, RBC 3.80 L, Hgb 12.0, Hct 35.4 L, MCV 93.2, MCH 31.6, MCHC 33.9, RDW Std Deviation 44.8 H, RDW Coeff of [place] 13.2, Plt Count 260, MPV 10.2, Immature Gran % (Auto) 0.600, Neut % (Auto) 78.4 H, Lymph % (Auto) 13.7 L, [place] % (Auto) 6.8, Eos % (Auto) 0.2, Baso % (Auto) 0.3, Absolute Neuts (auto) 8.5 H, Absolute Lymphs (auto) 1.48, Nucleated RBC % 0 09/03/21 22:40: Blood Type O POSITIVE, Antibody Screen NEGATIVE Micro: Microbiology 09/03/21 22:40 Nasal Secretion SARS-CoV-2 Antigen (Rapid) - Final Physical Exam Const alert, oriented x3, no apparent distress, average body habitus, healthy appearing and well nourished HEENT normocephalic and moist oral mucous membranes Head and Scalp: atraumatic Face and Sinus: normal facial exam Neck full ROM Resp normal respiratory effort, no retractions and no use of accessory muscles Extremity normal to inspection and full ROM Psych mental status grossly normal, affect normal, speech normal and activity/motor behavior normal Assessment & Plan (1) : PLAN: Patient seen and examined. Patient SROM overnight. Epidural in place. We will continue current management and augment with Pitocin if needed
[2021-09-04] MEDS: Ondansetron 4 MG/2 ML Vial IV (09:56)
[2021-09-04] MEDS: 0.9% Saline Lock 10 ML Syringe IV (09:56)
[2021-09-04] MEDS: Oxytocin 30 units/NS 500 ml 30 UNITS/500 ML IV.SOLN IV (11:36)
--- NOTE | 2021-09-04 12:36 | NURSING ---
Oxytocin infusion increased to 4miliunits per minute at this time by this RN with Laura Moctezuma RN at bedside per hospital policy. Oxytocin infusion remained at 4mU/min until delivery of viable female at 1350 at which time infusion was stopped and remaining amount of oxytocin was wasted per policy. Unable to chart medication titration in JUL due to infusion being complete and discontinued.
[2021-09-04] MEDS: Oxytocin 30 units/NS 500 ml 30 UNITS/500 ML IV.SOLN 334 UNITS IV (13:57)
--- NOTE | 2021-09-04 14:07 | EX.PCM.OBRPT ---
Vaginal Delivery Findings Description of Procedure: Normal spontaneous vaginal delivery of a viable female infant, LUIS. Head and shoulders delivered with ease. Cord cut and clamped. Baby handed off to patient. Placenta delivered via cord traction and fundal massage. Second-degree midline perineal laceration noted and repaired in typical fashion. EBL 300 cc Apgars 8/9
[2021-09-04] MEDS: Benzocaine/Lanolin/Aloe Vera 1 SPRAY EACH TOPICAL (16:05)
[2021-09-04] MEDS: Acetaminophen 500 MG Tablet 1000 MG PO (20:21)
[2021-09-04] MEDS: Senna/Docusate Sodium 1 Tablet PO (21:29)
[2021-09-05] MEDS: Acetaminophen 500 MG Tablet 1000 MG PO ×2 (02:54→10:25)
[2021-09-05 04:38] VITALS: BP 92/60; PULSE 60; RESP 16; TEMP 36.8
--- NOTE | 2021-09-05 07:48 | DCINST_ITS ---
Discharge Instructions Diet Discharge Diet: No restrictions Activity Discharge Activity: Return to Normal Activity, May Drive and May Shower May resume sexual activity in: 4-6 weeks Weight Bearing Status: Weight bearing as tolerated Dressing / Incision Call your doctor if your incision/area has: Continuous Slow Oozing and Foul Smelling Discharge Call your doctor if you observe: Fever of 101 or Higher, Shortness of breath and Chest pain Follow Up Care Please Follow Up With: Cooper Lieberman MD When: 2-week telehealth visit, 4 to 6 weeks Test Results: Test results from this visit will be discussed in further detail at your follow-up appointment, if applicable. Discharge Plan Admission Admit Date/Time: 09/03/21 22:15 Attending Provider: Cooper Lieberman Primary Care Provider: Astrid Guerrero Discharge Orders/Prescriptions Prescriptions: No Action prenat.vits,toya,[id number] Tablet 1 tab PO DAILY RF: 0 fluticasone propionate [Flonase Allergy Relief] 50 mcg/actuation [place],Suspension 1 spray INTRANASAL PRN PRN (Reason: allergies) RF: 0 Disposition Discharge Orders: Discharge Patient (Routine); Ordered 09/05/21 Ordered By: Dr. Cooper Lieberman
--- NOTE | 2021-09-05 07:49 | PCM.PN.OB ---
Subjective Subjective No overnight complaints Objective Data Objective Data Vital Signs: Vital Signs Temp Pulse Resp BP Pulse Ox 98.2 F 60 16 92/60 96 09/05/21 04:38 09/05/21 04:38 09/05/21 04:38 09/05/21 04:38 09/04/21 15:56 Oxygen Delivery Method Room Air Weight: 187 lb Body Mass Index (BMI) 32.1 Intake & Output: Intake and Output for Last 24 Hours 09/03/21 09/04/21 09/05/21 23:59 23:59 23:59 Intake Total 500 / 500 3904.47 / 3904.47 Output Total 3950 / 4450 1050 / 1050 Balance 500 / 500 -45.53 / -545.53 -1050 / -1050 Lab / Micro Data Result Diagrams: 09/03/21 22:40 Micro: Microbiology 09/03/21 22:40 Nasal Secretion SARS-CoV-2 Antigen (Rapid) - Final Physical Exam Const alert, oriented x3, no apparent distress, average body habitus, healthy appearing and well nourished HEENT normocephalic and moist oral mucous membranes Head and Scalp: atraumatic Face and Sinus: normal facial exam Neck full ROM Resp normal respiratory effort, no retractions and no use of accessory muscles GI GI Narrative: Soft, nontender, uterus firm and below umbilicus Extremity normal to inspection, full ROM and no clubbing, cyanosis or edema Psych mental status grossly normal, affect normal, speech normal and activity/motor behavior normal Assessment & Plan (1) : PLAN: day 1. Breast-feeding. Pain well controlled. Okay to discharge home if okay with wallpaper installer
[2021-09-05 08:00] VITALS: BP 95/54; PULSE 55; RESP 16; TEMP 36.8
[2021-09-05 14:00] VITALS: BP 102/67; PULSE 60; RESP 16; TEMP 36.6
== END 2021-09-05 17:04 | disposition home or self-care (01) | DRG 807 ==
LOC: WPOUT 22:23 → WP 22:23
PROVIDERS: Admitting Provider Obstetrics & Gynecology; PCP Family Medicine; Referring Provider Obstetrics & Gynecology; Visit Provider Obstetrics & Gynecology
DX: O76 Abnormality in fetal heart rate and rhythm complicating labor and delivery (principal); Z37.0 Single live birth; O70.1 Second degree perineal laceration during delivery; Z3A.39 39 weeks gestation of pregnancy
CPT/HCPCS: 59025; 59050; 84112; 85025; 86850; 86900; 86901; 87426; 99218; J7120; A4216; G0378; J2405

== ENCOUNTER → 2021-10-15 | Outpatient (CLI) | payer OTHER, SELFPAY | END | disposition home or self-care (01) | PROVIDERS: PCP Family Medicine; Visit Provider Student in an Organized Health Care Education/Training Program | DX: N76.0 Acute vaginitis (principal) ==

== ENCOUNTER → 2022-10-08 | Outpatient (CLI) | payer OTHER, SELFPAY ==
[2022-10-08 12:41] LABS: Absolute Lymphocyte Count 1.38 X10^3/uL (0.83-4.51); Basophil# 0.06 X10^3/uL; Eosinophil# 0.05 X10^3/uL; Eosinophils% 0.8 % (0-5); Hematocrit 37.9 % (37-47); Hemoglobin 12.7 g/dL (12.0-15.0); Lymphocyte # 1.38 X10^3/ul (0.83-4.51); Lymphocyte % 22.9 % (19-41); Mean Corp Hgb Conc 33.5 g/dL (32-36); Mean Corpuscular Hgb 30.6 pg (27.0-32.0); Mean Corpuscular Volume 91.3 fL (81-99); Mean Platelet Vol. 9.5 fl (6.2-12.0); Monocyte# 0.48 X10^3/uL; NRBC Flagged by Analyzer 0 % (0-5); Neutrophil # 4.04 X10^3/uL (2.7-7.7); Neutrophil % 67.1 % (47-70); Platelet Count 335 K/mm3 (150-450); RBC Distribution Width CV 12.3 % (11.6-14.6); Red Blood Count 4.15 M/mm3 (4.2-5.4)
[2022-10-08 13:21] LABS: ALB/GLOB Ratio 1.1 RATIO (0.9-2.4); AST(SGOT) 16 U/L (15-37); Alanine Aminotransfer ALT/SGPT 19 U/L (13-56); Albumin, Serum 4.1 g/dL (3.2-5.0); Alkaline Phosphatase 61 U/L (45-117); Anion Gap 7 (5-15); BUN 11 mg/dL (7-18); BUN/Creat Ratio 14.6 RATIO (10-20); Calcium,Total 8.9 mg/dL (8.5-10.1); Chloride 106 mmol/L (98-107); Cholesterol 188 mg/dL (200); Creatinine, Serum 0.75 mg/dL (0.55-1.02); EST Glomerular Filtration Rate 95 mL/min (>60); Est Glom Filt Rate - Afr Amer 114 mL/min (>60); Globulin 3.8 g/dL (2.2-4.2); Glucose 82 mg/dL (74-106); High Density Lipoprotein 52 mg/dL; Potassium 4.2 mmol/L (3.5-5.1); Protein, Total 7.9 g/dL (6.4-8.2); Sodium Level 138 mmol/L (136-145); Thyroid Stim Hormone (TSH) 1.43 uIU/mL (0.358-3.74); Triglycerides 100 mg/dL; Very Low Density Lipoprotein 20 mg/dL (5-40)
[2022-10-08 13:30] LABS: Hemoglobin A1c 5.1 % (3.8-5.6)
== END | disposition home or self-care (01) ==
LOC: MFPLAB 10:17
PROVIDERS: PCP Family Medicine; Visit Provider Family Medicine
DX: Z00.00 Encounter for general adult medical examination without abnormal findings (principal); Z13.0 Encounter for screening for diseases of the blood and blood-forming organs and certain disorders involving the immune mechanism; Z13.1 Encounter for screening for diabetes mellitus; Z13.29 Encounter for screening for other suspected endocrine disorder
CPT/HCPCS: 36415; 80053; 80061; 83036; 84443; 85025

== ENCOUNTER → 2023-08-19 | Outpatient (CLI) | payer OTHER, SELFPAY ==
[2023-08-24 19:07] LABS: HPV APTIMA, High Risk Negative (Negative)
== END | disposition home or self-care (01) ==
LOC: LAB 16:29
PROVIDERS: PCP Family Medicine; Referring Provider Registered Nurse; Visit Provider Registered Nurse
DX: Z12.4 Encounter for screening for malignant neoplasm of cervix (principal)
CPT/HCPCS: 87624; 88175; G0145

== ENCOUNTER → 2023-10-21 | Outpatient (CLI) | payer OTHER, SELFPAY ==
[2023-10-21 10:24] LABS: Absolute Lymphocyte Count 1.14 X10^3/uL (0.83-4.51); Absolute Neutrophil Count 3.6 X10^3/uL (2.0-7.7); Basophil# 0.04 X10^3/uL; Basophil% 0.7 % (0-1); Eosinophil# 0.04 X10^3/uL; Eosinophils% 0.7 % (0-5); Hematocrit 38.3 % (37-47); Hemoglobin 12.9 g/dL (12.0-15.0); Lymphocyte # 1.14 X10^3/ul (0.83-4.51); Lymphocyte % 21.2 % (19-41); Mean Corp Hgb Conc 33.7 g/dL (32-36); Mean Corpuscular Hgb 30.5 pg (27.0-32.0); Mean Corpuscular Volume 90.5 fL (81-99); Monocyte# 0.55 X10^3/uL; Monocyte% 10.2 % (0-10); NRBC Flagged by Analyzer 0 % (0-5); Neutrophil # 3.61 X10^3/uL (2.7-7.7); Neutrophil % 67.2 % (47-70); Platelet Count 292 K/mm3 (150-450); RBC Distribution Width CV 12.3 % (11.6-14.6); RBC Distribution Width SD 40.3 fl (35.1-43.9); Red Blood Count 4.23 M/mm3 (4.2-5.4); White Blood Count 5.4 K/mm3 (4.4-11.0)
[2023-10-22 01:56] LABS: ALB/GLOB Ratio 1.1 RATIO (0.9-2.4); AST(SGOT) 15 U/L (15-37); Alanine Aminotransfer ALT/SGPT 17 U/L (13-56); Albumin, Serum 4.1 g/dL (3.2-5.0); Alkaline Phosphatase 52 U/L (45-117); Anion Gap 8 (5-15); BUN 11 mg/dL (7-18); BUN/Creat Ratio 13.9 RATIO (10-20); Calcium,Total 9.2 mg/dL (8.5-10.1); Chloride 108 mmol/L (98-107); Cholesterol 174 mg/dL (200); Creatinine, Serum 0.79 mg/dL (0.55-1.02); EST Glomerular Filtration Rate 89 mL/min (>60); Est Glom Filt Rate - Afr Amer 108 mL/min (>60); Globulin 3.7 g/dL (2.2-4.2); Glucose 88 mg/dL (74-106); High Density Lipoprotein 45 mg/dL; Potassium 4.1 mmol/L (3.5-5.1); Protein, Total 7.8 g/dL (6.4-8.2); Sodium Level 139 mmol/L (136-145); Thyroid Stim Hormone (TSH) 1.46 uIU/mL (0.358-3.74); Triglycerides 82 mg/dL; Very Low Density Lipoprotein 16 mg/dL (5-40)
== END | disposition home or self-care (01) ==
LOC: MFPLAB 08:23
PROVIDERS: PCP Family Medicine; Visit Provider Family Medicine
DX: Z00.00 Encounter for general adult medical examination without abnormal findings (principal); Z13.220 Encounter for screening for lipoid disorders; Z13.1 Encounter for screening for diabetes mellitus; Z13.29 Encounter for screening for other suspected endocrine disorder
CPT/HCPCS: 36415; 80053; 80061; 84443; 85025

== ENCOUNTER → 2024-09-20 | Outpatient (CLI) | payer OTHER, SELFPAY ==
[2024-09-20 16:39] LABS: Absolute Lymphocyte Count 1.19 X10^3/uL (0.83-4.51); Absolute Neutrophil Count 8.3 X10^3/uL (2.0-7.7); Basophil# 0.03 X10^3/uL; Basophil% 0.3 % (0-1); Eosinophil# 0.03 X10^3/uL; Eosinophils% 0.3 % (0-5); Hematocrit 37.2 % (37-47); Hemoglobin 12.4 g/dL (12.0-15.0); Lymphocyte # 1.19 X10^3/ul (0.83-4.51); Lymphocyte % 11.5 % (19-41); Mean Corp Hgb Conc 33.3 g/dL (32-36); Mean Corpuscular Hgb 30.2 pg (27.0-32.0); Mean Corpuscular Volume 90.5 fL (81-99); Mean Platelet Vol. 9.8 fl (6.2-12.0); Monocyte# 0.77 X10^3/uL; Monocyte% 7.5 % (0-10); NRBC Flagged by Analyzer 0 % (0-5); Neutrophil # 8.26 X10^3/uL (2.7-7.7); Neutrophil % 79.9 % (47-70); Platelet Count 322 K/mm3 (150-450); RBC Distribution Width CV 12.6 % (11.6-14.6); RBC Distribution Width SD 41.7 fl (35.1-43.9); Red Blood Count 4.11 M/mm3 (4.2-5.4); White Blood Count 10.3 K/mm3 (4.4-11.0)
[2024-09-20 17:34] LABS: Cholesterol 205 mg/dL (<=200); HIV Nonreactive (Nonreactive); Hepatitis B Surface Antigen Nonreactive (Nonreactive); Hepatitis C Antibody Nonreactive (Nonreactive); High Density Lipoprotein 62 mg/dL; Low Density Lipoprotein Calc. 120 mg/dL; Rubella IgG REAC (Nonreactive); Syphilis Antibodies Nonreactive (Nonreactive); Triglycerides 119 mg/dL; Very Low Density Lipoprotein 24 mg/dL (5-40); cholesterol:hdl ratio screen 3.33
[2024-09-24 22:07] LABS: Chlamydia By Nucleic Acid AMP Negative (Negative); Gonococcus By Nucleic Acid AMP Negative (Negative)
== END | disposition home or self-care (01) ==
PROVIDERS: PCP Family Medicine; Referring Provider Advanced Practice Midwife; Visit Provider Advanced Practice Midwife
DX: Z34.90 Encounter for supervision of normal pregnancy, unspecified, unspecified trimester (principal)
CPT/HCPCS: 36415; 80061; 85025; 86703; 86762; 86780; 86803; 86850; 86900; 86901; 87086; 87340; 87491; 87591

== ENCOUNTER → 2025-01-15 | Outpatient (CLI) | payer OTHER, SELFPAY ==
[2025-01-15 12:22] LABS: Hematocrit 34.7 % (37-47); Hemoglobin 11.6 g/dL (12.0-15.0); Immature Granulocytes Count 0.040 X10^3/uL (0.0-0.0); Mean Corp Hgb Conc 33.4 g/dL (32-36); Mean Corpuscular Volume 96.1 fL (81-99); Mean Platelet Vol. 9.9 fl (6.2-12.0); NRBC Flagged by Analyzer 0 % (0-5); Platelet Count 300 K/mm3 (150-450); RBC Distribution Width CV 13.1 % (11.6-14.6); RBC Distribution Width SD 46.6 fl (35.1-43.9); Red Blood Count 3.61 M/mm3 (4.2-5.4); White Blood Count 8.6 K/mm3 (4.4-11.0)
[2025-01-15 13:23] LABS: Glucose Challenge Gest 1H 50g 104 mg/dL (70-140); HIV Nonreactive (Nonreactive); Syphilis Antibodies Nonreactive (Nonreactive)
== END | disposition home or self-care (01) ==
PROVIDERS: PCP Family Medicine; Visit Provider Nurse Practitioner Women's Health
DX: Z13.1 Encounter for screening for diabetes mellitus (principal); Z3A.22 22 weeks gestation of pregnancy
CPT/HCPCS: 36415; 82950; 85025; 86703; 86780

== ENCOUNTER → 2025-03-26 | Outpatient (CLI) | payer OTHER, SELFPAY | END | disposition home or self-care (01) | LOC: LABSPEC 16:16 | PROVIDERS: PCP Family Medicine; Visit Provider Advanced Practice Midwife | DX: Z34.93 Encounter for supervision of normal pregnancy, unspecified, third trimester (principal); Z3A.35 35 weeks gestation of pregnancy | CPT/HCPCS: 87081 ==

== ENCOUNTER 2025-04-19 06:06 | Inpatient (IN) | payer OTHER, SELFPAY ==
[2025-04-19] VITALS (58 sets, daily range): BP systolic 89–124; BP diastolic 51–79; PULSE 78–115; RESP 14–20; TEMP 36.4–37.7; O2SAT 89–100; BMI 31.6
--- OUTSIDE RECORDS SUMMARY | 2025-04-19 05:33 | XMS RPT_ITS | CCD ---
Author Organization [facility] Care Team Providers Care Body Sander Name Role Phone Dr. Astrid Guerrero Primary Care Provider [phone] Dr. Astrid Guerrero Referring Provider [phone] Chepe EPSTEIN, CLOCKMAKER-C Amanda Attending Provider DO Renata Lundy Primary Care Provider DO Renata Lundy Referring Provider BEATRIS Mccoy Attending Provider Jose Blanca MD Primary Care Provider Jose Blanca MD Referring Provider Petra Goncalves CNM Attending Provider Petra Goncalves CNM Referring Provider Dr. Kaleigh Milner DO Attending Provider Dr. Pooja Diop MD Attending Provider [phone] KALEIGH PERSAUD Referring Unavailab CHARMAINE Deal Attending Unavailable JOSE BLANCA Primary Care Unavailable Alyse Marte Attending Provider Jose Blanca MD Primary Care Physician Jose Blanca MD Referring Provider Dr. Kaleigh Milner DO Attending Physician Dr. Pooja Diop MD Attending Physician Alyse Marte Attending Physician Jose Blanca MD Primary Care Physician Jose Blanca MD Referring Provider Geoffrey, Chalon Primary Care Unavailable Pooja Diop Attending Unavailable Geoffrey, Chalon Referring Unavailable Luz Marina CLOCKMAKER, Alyse Attending Unavailable Geoffrey, Chalon Referring Unavailable Geoffrey, Chalon Primary Care Unavailable Pooja Diop Attending Unavailable Geoffrey, Chalon Referring Unavailable Geoffrey, Chalon Primary Care Unavailable Petra Goncalves Attending Unavailable Geoffrey, Chalon Referring Unavailable Geoffrey, Chalon Primary Care Unavailable Petra Goncalves Attending Unavailable Geoffrey, Chalon Referring Unavailable Geoffrey, Chalon Primary Care Unavailable Petra Goncalves Attending Unavailable Geoffrey, Chalon Primary Care Unavailable Geoffrey, Chalon Referring Unavailable Geoffrey, Chalon Primary Care Unavailable Kaleigh Milner Attending Unavailabl e Geoffrey, Chalon Referring Unavailable Geoffrey, Chalon Primary Care Unavailable Pooja Diop Attending Unavailable Geoffrey, Chalon Referring Unavailable Sacha, Petra Attending Unavailable Sacha, Petra Referring Unavailable Geoffrey, Chalon Primary Care Unavailable Geoffrey, Chalon Primary Care Unavailable Luz Marina CLOCKMAKER, Alyse Attending Unavailable Geoffrey, Chalon Primary Care Unavailable Luz Marina CLOCKMAKER, Alyse Attending Unavailable Geoffrey, Chalon Referring Unavailable Medications Current Medications Medication Drug Class(es) Dates Sig (Normalized) Sig (Original) cetirizine hydrochloride 10 mg oral capsule (9 sources) Histamine-1 Receptor Antagonist Start: 08-31-2024 take 1 capsule by mouth once daily as needed Cetirizine (Zyrtec) 10 mg capsule Active 10 mg PO daily as needed August 31, 2024 12:00am Complies with drug therapy fluticasone propionate 0.05 mg/actuat metered dose nasal spray (13 sources) Corticosteroid Start: 09-03-2021 Fluticasone Propionate (Flonase Allergy Relief) 50 mcg/actuation Vanderbilt,Suspension Active 1 NMA INTRANASAL NEEDED as needed for allergies September 03, 2021 12:00am Complies with drug therapy Start: 09-03-2021 Fluticasone Pr opionate (Flonase Allergy Relief) 50 mcg/actuation Vanderbilt,Suspension Active 1 SPRAY INTRANASAL NEEDED September 03, 2021 12:00am Mv-Mins 64-Xuvc-Fuwto No.1-D nixon (Pnv-Thornton) 28-1-300 mg capsule (9 sources) Start: 08-31-2024 Mv-Mins 71-Iro n-Folic No.1-Dha (Pnv-Thornton) 28-1-300 mg capsule Active NMA PO August 31, 2024 12:00am Complies with drug therapy Start: 08-31-2024 Mv-Mins 71-Iro n-Folic No.1-Dha (Pnv-Thornton) 28-1-300 mg capsule Active NMA PO August 31, 2024 12:00am Prenat.Vits,Palomo,Hzy-Mcrj-Atp ic (5 sources) Start: 06-29-2019 take 1 tablet by mouth once daily Prenat.Vits,Palomo,Tcd-Gxwj-Vgccx Active 1 TABLET PO DAILY June 29, 2019 6:33pm Start: 06-29-2019 take 1 tablet by kelli th once daily Prenat.Vits,Palomo,Spi-Jutc-Vuswp Active 1 TABLET PO DAILY June 29, 2019 1:00am Completed/Discontinued Medications Medication Drug Class(es) Dates Sig (Normalized) Sig (Original) amoxicillin 875 mg / clavulanate 125 mg oral tablet (14 sources) Penicillin-class Antibacterial Start: 06-29-2019 End: 07-09-2019 Amoxicillin-Pot Clavulanate (Augmentin) 875-125 mg tablet Discontinued 1 {tbl} PO Q12H 20 10 0 June 29, 2019 1:00am July 08, 2019 1:00am July 09, 2019 1:09am Acute sinusitis, unspecified ferrous sulfate 325 mg oral tablet (14 sources) Start: 01-04-2019 End: 06-29-2019 take 1 tablet by mouth once daily Ferrous Sulfate 325 MG tablet Discontinued 325 mg PO DAILY January 04, 2019 12:00am June 29, 2019 6:33pm Anemia fexofenadine hydrochloride 180 mg oral tablet (14 sources) Histamine-1 Receptor Antagonist Start: 01-04-2019 End: 06-29-2019 take 1 tablet by mouth once daily Fexofenadine 180 MG tablet Discontinued 180 mg PO DAILY January 04, 2019 12:00am June 29, 2019 6:33pm seasonal allergies Prenat.Vits,Palomo,Min -Iron-Folic tablet (9 sources) Start: 06-29-2019 End: 08-31-2024 Prenat.Vits,Palomo,Mi k-Aflo-Xotdi tablet Discontinued 1 {tbl} PO DAILY June 29, 2019 1:00am August 31, 2024 3:03pm Problems Active Problems Problem Classification Problem Date Documented Da te Episodic/Chronic Fever of unknown origin (14 sources) Fever; Translations: [Fever, unspecified] 12-18-2020 Episodic Immunizations and screening for infectious disease (15 sources) Contact with or exposure to other viral diseases; Translations: [Lab test negative for COVID-19 virus] Onset: 03-08-2025 12-18-2020 Episodic Other and delivery including normal (20 sources) ; Translations: [Encounter for supervision of normal , unspecified, unspecified trimester] Onset: 09-24-2024 Episodic Comment on above: , DONNY 04/21/25, DANNY Alan Tamar Tyrone declined NIPT & Rdz ier testing declines NIPT & Rdz ier testing,did not do genetic testing with any PRR (waiting on gcc) , DONNY 04/21/25, DANNY Alan Tamar Tyrone PRR, , DONNY 04/21, PC Waqas, Tamar Tyrone PRR, , DONNY 04/21,boy PC Waqas, Tamar Tyrone declined NIPT & Rdz ier, afp testing. nl anatomy Other screening for suspected conditions (not mental disorders or infectious disease) (2 sources) Encounter for screening for diabetes mellitus; Translations: [Encounter for screening for lipoid disorders] Onset: 09-20-2024 Episodic Other upper respiratory disease (20 sources) Seasonal allergy; Translations: [Other seasonal allergic rhinitis] 08-31-2024 Chronic Other upper respiratory disease (1 source) Other seasonal allergic rhinitis; Translations: [Other seasonal allergic rhinitis] Onset: 09-20-2024 Chronic Other upper respiratory infections (20 sources) Upper respiratory infection; Translations: [Acute upper respiratory infection, unspecified] 12-18-2020 Episodic Residual codes; unclassified (1 source) 35 weeks gestation of ; Translations: [35 weeks gestation of ] Onset: 03-19-2025 Episodic Residual codes; unclassified (1 source) 33 weeks gestation of ; Translations: [33 weeks gestation of ] Onset: 03-08-2025 Episodic Residual codes; unclassified (1 source) 31 weeks gestation of ; Translations: [31 weeks gestation of ] Onset: 02-22-2025 Episodic Past or Other Problems Problem Classification Problem Date Documented Da te Episodic/Chronic Residual codes; unclassified (1 source) 22 weeks gestation of ; Translations: [22 weeks gestation of ] Onset: 12-18-2024 Episodic Residual codes; unclassified (1 source) 9 weeks gestation of ; Translations: [9 weeks gestation of ] Onset: 09-20-2024 Episodic Results Test Name Value Interpretation Reference Range Facility [facility] Office Visit Reporton 03-19-2025 [facility] Office Visit Report [facility] [address], [address] [place] [address] OFFICE VISIT Date of Service: 03/19/25 MR#: [id number] Acct: [id number] Name: GIULIA HOGUE Rep #: [id number] : 1990 Provider: BEATRIS Ho ams Age/Sex: 34/F Location: [facility] Status: Signed Intake Vital Signs 12/18/24 08:25 01/15/25 09:15 03/08/25 15:12 03/19/25 09:34 03/19/25 09:34 Height 5 ft 4 in 5 ft 4 in 5 ft 4 in 5 ft 4 in 5 ft 4 in Weight: 185 lb 2 oz BMI 31.7 BP 108/71 Intake Visit Reasons: 34 wk ob Bunker Worker Required: No Is patient in pain?: No Allergies No Known Allergies Allergy (Verified 03/19/25 09:33) Medications ???Medication ???Instructions ???Recorded ???Confirmed ???Type fluticasone propionate 50 1 spray intranasal PRN PRN 2 2 03/19/25 History mcg/actuation nasal allergies spray,suspension (Flonase Allergy Relief) cetirizine 10 mg capsule (Zyrtec) 10 mg PO QDAY PRN 08/31/24 History multivit-min no.71-iron fum 28 cap PO 08/31/24 03/19/25 History mg-folate no.1 1 mg-dha 300 mg capsule (PNV-Thornton) Last Menstrual Period: 07/15/24 Zika: Zika virus screening: Negative : No PFSH PFSH Medical History URI (upper respiratory infection) Lab test negative for COVID-19 virus Seasonal allergies Surgical History History of wisdom tooth extraction Family History Father Heart disease Mother Diabetes Other Hypertension Social History adopted: No household members: spouse and children housing: house number of children: 2 current occupational status: employed 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 current occupational exposures/hazards: No pets and animals: Yes pets and animals: dog(s) history of recent travel: No sexually active: Yes Smoking Status: Never smoker alcohol intake: current details: socially- not while substance use type: does not use well-balanced diet: daily or most days caffeine: Yes Type: coffee Number of servings: 1 eating out: 1-3 times/week during the past year weight has: remained stable what type of physical activity do you participate in: none angel/gnosticist: Scientology seatbelt use: always do you feel safe at home: Yes additional social history: Spouse - Tyrone, Jan and tamar children History 3 Elective abortions Hx Para 2 Spontaneous abortions Hx # Term Pregnancies Ectopic pregnancies Hx # Pregnancies Multiple births # of living children 2 Past Pregnancies Del. Date Name GA/Weeks Outcome Route Bth Weight Infant Gen Labor Lgth Anesthesia Del Locatn Provider FOB 01/05/19 Waqas 41 live - full term 7#13oz Male epidural [facility] Be emy Alexise 09/04/21 Tamar 39 live - full term 8# Female epidural [facility] Bryson Hansen Delivery Date: 01/05/19 Last Updated by: Courtney Lovett pitocin used after labor started HPI 34 wk ob Details: GIULIA HOGUE is a 34 year old who presents for routine OB visit. OB Visit DONNY Calculator Estimated Delivery Date Method Current WG Current Estimate 04/21/25 LMP (Certain) 35w 2d Other Estimates 04/21/25 Ultrasound #1 35w 2d Expected Delivery Route/Plan Labor Preferences- CB/BF classes: no labor support person: Tyrone labor intervention preferences: [] pain management options preferred: epidural cut cord/dad catch: YES : yes PP control planned: discussed discussed possible routes of delivery and associated risks: [] special requests: [] Specific Issue/Plans Covid status: [] Flu vaccine: declined Tdap vaccine: given Rhogam: NA LARC form signed: yes movement and labor precautions reviewed. Problem list reviewed and updated with the most current plan of care details and appropriate orders placed. Relevant counseling for the gestational age provided. Continue routine care and follow up unless otherwise noted in visit notes/problem list details Initial Weight: 161 lb Date -???-???-???-???-??? -???-???-???-???-??? -???-???- EGA Weight BP Urine Prot -???-???-???-???-??? -???-???-???-???-??? -???-???- Glucose FHR FuHt Pres Dilation -???-???-???-???-??? -???-???-???-???-??? -???-???- Effaced St Visit Note 09/20/24 -???-???-???-???-??? -???-???-???-???-??? -???-???- 9w 4d 161 lb 6 oz (+6 oz) 117/81 -???-???-???-???-??? -???-???-???-???-??? -???-???- 188 -???-???-???-???-??? -???-???-???-???-??? -???-???- KW- CRL cons with dates. declines NIPT 10/23/24 -???-???-???-???-??? -???- (more content not included)... Normal [facility] Office Visit Reporton 03-08-2025 [facility] Office Visit Report [facility]'s [address], [address] [place] [address] OFFICE VISIT Date of Service: 03/08/25 MR#: [id number] Acct: [id number] Name: GIULIA HOGUE Rep #: [id number] : 1990 Provider: BEATRIS Ho ams Age/Sex: 34/F Location: [facility] Status: Signed Intake Vital Signs 12/18/24 08:25 02/22/25 09:01 03/08/25 15:12 Height 5 ft 4 in 5 ft 4 in 5 ft 4 in Weight: 183 lb 3 oz BMI 31.4 BP 123/77 H Intake Visit Reasons: 32 wk ob Chief Complaint: 32wk OB Bunker Worker Required: No Is patient in pain?: No Allergies No Known Allergies Allergy (Verified 03/08/25 15:10) Medications ???Medication ???Instructions ???Recorded ???Confirmed ???Type fluticasone propionate 50 1 spray intranasal PRN PRN 09/03/2 2 03/08/25 History mcg/actuation nasal allergies spray,suspension (Flonase Allergy Relief) cetirizine 10 mg capsule (Zyrtec) 10 mg PO QDAY PRN 08/31/24 History multivit-min no.71-iron fum 28 cap PO 08/31/24 03/08/25 History mg-folate no.1 1 mg-dha 300 mg capsule (PNV-Thornton) Last Menstrual Period: 07/15/24 : No Have you fallen in the past year?: No PFSH PFSH Medical History URI (upper respiratory infection) Lab test negative for COVID-19 virus Seasonal allergies Surgical History History of wisdom tooth extraction Family History Father Heart disease Mother Diabetes Other Hypertension Social History adopted: No household members: spouse and children housing: house number of children: 2 current occupational status: employed 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 current occupational exposures/hazards: No pets and animals: Yes pets and animals: dog(s) history of recent travel: No sexually active: Yes Smoking Status: Never smoker alcohol intake: current details: socially- not while substance use type: does not use well-balanced diet: daily or most days caffeine: Yes Type: coffee Number of servings: 1 eating out: 1-3 times/week during the past year weight has: remained stable what type of physical activity do you participate in: none angel/gnosticist: Scientology seatbelt use: always do you feel safe at home: Yes additional social history: Spouse - TyroneJan and tamar children History 3 Elective abortions Hx Para 2 Spontaneous abortions Hx # Term Pregnancies Ectopic pregnancies Hx # Pregnancies Multiple births # of living children 2 Past Pregnancies Del. Date Name GA/Weeks Outcome Route Bth Weight Gen Labor Lgth Anesthesia Del Locatn Provider FOB 01/05/19 Waqas 41 live - full term 7#13oz Male epidural [facility] Be emy Hansen 09/04/21 Tamar 39 live - full term 8# Female epidural [facility] Bryson Hansen Delivery Date: 01/05/19 Last Updated by: Courtney Lovett pitocin used after labor started HPI 32 wk ob Details: GIULIA HOGUE is a 34 year old who presents for routine OB visit. OB Visit DONNY Calculator Estimated Delivery Date Method Current WG Current Estimate 04/21/25 LMP (Certain) 33w 5d Other Estimates 04/21/25 Ultrasound #1 33w 5d Expected Delivery Route/Plan Labor Preferences- CB/BF classes: no labor support person: Tyrone labor intervention preferences: [] pain management options preferred: epidural cut cord/dad catch: YES : yes PP control planned: discussed discussed possible routes of delivery and associated risks: [] special requests: [] Specific Issue/Plans Covid status: [] Flu vaccine: declined Tdap vaccine: given Rhogam: NA LARC form signed: yes movement and labor precautions reviewed. Problem list reviewed and updated with the most current plan of care details and appropriate orders placed. Relevant counseling for the gestational age provided. Continue routine care and follow up unless otherwise noted in visit notes/problem list details Initial Weight: 161 lb Date -???-???-???-???-??? -???-???-???-???-??? -???-???- EGA Weight BP Urine Prot -???-???-???-???-??? -???-???-???-???-??? -???-???- Glucose FHR FuHt Pres Dilation -???-???-???-???-??? -???-???-???-???-??? -???-???- Effaced St Visit Note 09/20/24 -???-???-???-???-??? -???-???-???-???-??? -???-???- 9w 4d 161 lb 6 oz (+6 oz) 117/81 -???-???-???-???-??? -???-???-???-???-??? -???-???- 188 -???-???-???-???-??? -???-???-???-???-??? -???-???- KW- CRL cons with dates. declines NIPT 10/23/24 -???-???-???-???-??? -???-???-???-???-??? -???-???- 14w 2d 165 lb 2 o (more content not included)... Normal [facility] Laboratory - Chemistry and C hemistry - challengeOrdered By: Pooja Diop on 02-22-2025 Glucose Ql (U) Negative [facility] Laboratory - UrinalysisOrder ed By: Pooja Diop on 02-22-2025 Protein Ql (U) Negative [facility] Office Visit Reporton 02-22-2025 [facility] Office Visit Report [facility]'s [address], [address] [place] [address] OFFICE VISIT Date of Service: 02/22/25 MR#: [id number] Acct: [id number] Name: GIULIA HOGUE Rep #: [id number] : 1990 Provider: Dr. Pooja mckeon MD Age/Sex: 34/F Location: [facility] Status: Signed Intake Vital Signs 12/18/24 08:25 02/05/25 09:37 02/22/25 09:01 Height 5 ft 4 in 5 ft 4 in 5 ft 4 in Weight: 178 lb 7 oz BMI 30.6 BP 109/74 Intake Visit Reasons: 30wk ob Bunker Worker Required: No Is patient in pain?: No Allergies No Known Allergies Allergy (Verified 02/22/25 09:01) Medications ???Medication ???Instructions ???Recorded ???Confirmed ???Type fluticasone propionate 50 1 spray intranasal PRN PRN 2 2 02/22/25 History mcg/actuation nasal allergies spray,suspension (Flonase Allergy Relief) cetirizine 10 mg capsule (Zyrtec) 10 mg PO QDAY PRN 08/31/24 History multivit-min no.71-iron fum 28 cap PO 08/31/24 02/22/25 History mg-folate no.1 1 mg-dha 300 mg capsule (PNV-Thornton) Last Menstrual Period: 07/15/24 Zika: Zika virus screening: Negative : No PFSH PFSH Medical History URI (upper respiratory infection) Lab test negative for COVID-19 virus Seasonal allergies Surgical History History of wisdom tooth extraction Family History Father Heart disease Mother Diabetes Other Hypertension Social History (Reviewed 02/22/25 @ 09:02 by Alyse Barrios adopted: No household members: spouse and children housing: house number of children: 2 current occupational status: employed 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 current occupational exposures/hazards: No pets and animals: Yes pets and animals: dog(s) history of recent travel: No sexually active: Yes Smoking Status: Never smoker alcohol intake: current details: socially- not while substance use type: does not use well-balanced diet: daily or most days caffeine: Yes Type: coffee Number of servings: 1 eating out: 1-3 times/week during the past year weight has: remained stable what type of physical activity do you participate in: none angel/gnosticist: Scientology seatbelt use: always do you feel safe at home: Yes additional social history: Spouse - Tyrone, Jan and tamar children History 3 Elective abortions Hx Para 2 Spontaneous abortions Hx # Term Pregnancies Ectopic pregnancies Hx # Pregnancies Multiple births # of living children 2 Past Pregnancies Del. Date Name GA/Weeks Outcome Route Bth Weight Infant Gen Labor Lgth Anesthesia Del Locatn Provider FOB 01/05/19 Waqas 41 live - full term 7#13oz Male epidural [facility] Be emy Tyrone 09/04/21 Tamar 39 live - full term 8# Female epidural [facility] Jam bernice Hansen Delivery Date: 01/05/19 Last Updated by: Courtney Lovett pitocin used after labor started HPI 30wk ob Details: GIULIA HOGUE is a 34 year old who presents for routine OB visit. OB Visit DONNY Calculator Estimated Delivery Date Method Current WG Current Estimate 04/21/25 LMP (Certain) 31w 5d Other Estimates 04/21/25 Ultrasound #1 31w 5d Expected Delivery Route/Plan Labor Preferences- CB/BF classes: no labor support person: Tyrone labor intervention preferences: [] pain management options preferred: epidural cut cord/dad catch: YES : yes PP control planned: discussed discussed possible routes of delivery and associated risks: [] special requests: [] Specific Issue/Plans Covid status: [] Flu vaccine: declined Tdap vaccine: given Rhogam: NA LARC form signed: yes movement and labor precautions reviewed. Problem list reviewed and updated with the most current plan of care details and appropriate orders placed. Relevant counseling for the gestational age provided. Continue routine care and follow up unless otherwise noted in visit notes/problem list details Initial Weight: 161 lb Date -???-???-???-???-??? -???-???-???-???-??? -???-???- EGA Weight BP Urine Prot -???-???-???-???-??? -???-???-???-???-??? -???-???- Glucose FHR FuHt Pres Dilation -???-???-???-???-??? -???-???-???-???-??? -???-???- Effaced St Visit Note 09/20/24 -???-???-???-???-??? -???-???-???-???-??? -???-???- 9w 4d 161 lb 6 oz (+6 oz) 117/81 -???-???-???-???-??? -???-???-???-???-??? -???-???- 188 -???-???-???-???-??? -???-???-???-???-??? -???-???- KW- CRL cons with dates. declines NIPT 10/23/24 -???-???-???-???-??? -???-???-???-???-??? -???-???- 14w 2d 165 lb 2 oz (+4 lb 2 (more content not included)... Normal [facility] Laboratory - Chemistry and C hemistry - challengeOrdered By: Alyse Raza on 02-05-2025 Glucose Ql (U) Negative [facility] Laboratory - UrinalysisOrder ed By: Alyse Raza on 02-05-2025 Protein Ql (U) Negative [facility] Office Visit Reporton 02-05-2025 [facility] [employer] [facility] Office Visit Report [facility], [address] [place] [address] OFFICE VISIT Date of Service: 02/05/25 MR#: [id number] Acct: [id number] Name: GIULIA HOGUE Rep #: [id number] : 1990 Provider: JEFFY guerrero Age/Sex: 34/F Location: [facility] Status: Signed Intake Vital Signs 11/19/24 15:18 01/15/25 09:15 02/05/25 09:33 02/05/25 09:37 Height 5 ft 4 in 5 ft 4 in 5 ft 4 in 5 ft 4 in Weight: 175 lb 4 oz 179 lb 4 oz BMI 30.0 30.7 BP 109/73 112/71 Intake Visit Reasons: 28 wk ob Chief Complaint: 28 Week OB Bunker Worker Required: No Is patient in pain?: No Allergies No Known Allergies Allergy (Verified 02/05/25 09:32) Medications ???Medication ???Instructions ???Recorded ???Confirmed ???Type fluticasone propionate 50 1 spray intranasal PRN PRN 2 02/05/25 History mcg/actuation nasal allergies spray,suspension (Flonase Allergy Relief) cetirizine 10 mg capsule (Zyrtec) 10 mg PO QDAY PRN 08/31/24 History multivit-min no.71-iron fum 28 cap PO 08/31/24 02/05/25 History mg-folate no.1 1 mg-dha 300 mg capsule (PNV-Thornton) Last Menstrual Period: 07/15/24 Zika: Zika virus screening: Negative : Yes PFSH PFSH Medical History URI (upper respiratory infection) Lab test negative for COVID-19 virus Seasonal allergies Surgical History History of wisdom tooth extraction Family History Father Heart disease Mother Diabetes Other Hypertension Social History adopted: No household members: spouse and children housing: house number of children: 2 current occupational status: employed 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 current occupational exposures/hazards: No pets and animals: Yes pets and animals: dog(s) history of recent travel: No sexually active: Yes Smoking Status: Never smoker alcohol intake: current details: socially- not while substance use type: does not use well-balanced diet: daily or most days caffeine: Yes Type: coffee Number of servings: 1 eating out: 1-3 times/week during the past year weight has: remained stable what type of physical activity do you participate in: none angel/gnosticist: Scientology seatbelt use: always do you feel safe at home: Yes additional social history: Spouse - TyroneJan and tamar children History 3 Elective abortions Hx Para 2 Spontaneous abortions Hx # Term Pregnancies Ectopic pregnancies Hx # Pregnancies Multiple births # of living children 2 Past Pregnancies Del. Date Name GA/Weeks Outcome Route Bth Weight Infant Gen Labor Lgth Anesthesia Del Locatn Provider FOB 01/05/19 Waqas 41 live - full term 7#13oz Male epidural [facility] Be emy Hansen 09/04/21 Tamar 39 live - full term 8# Female epidural [facility] Bryson Hansen Delivery Date: 01/05/19 Last Updated by: Courtney Lovett pitocin used after labor started HPI 28 wk ob Details: GIULIA HOGUE is a 34 year old who presents for routine OB visit. OB Visit DONNY Calculator Estimated Delivery Date Method Current WG Current Estimate 04/21/25 LMP (Certain) 29w 2d Other Estimates 04/21/25 Ultrasound #1 29w 2d Expected Delivery Route/Plan Labor Preferences- CB/BF classes: no labor support person: Tyrone labor intervention preferences: [] pain management options preferred: epidural cut cord/dad catch: YES : yes PP control planned: discussed discussed possible routes of delivery and associated risks: [] special requests: [] Specific Issue/Plans Covid status: [] Flu vaccine: [] Tdap vaccine: given Rhogam: NA LARC form signed: yes Problem list reviewed and updated with the most current plan of care details and appropriate orders placed. Relevant counseling for the gestational age provided. Continue routine care and follow up unless otherwise noted in visit notes/problem list details Initial Weight: 161 lb Date -???-???-???-???-??? -???-???-???-???-??? -???-???- EGA Weight BP Urine Prot -???-???-???-???-??? -???-???-???-???-??? -???-???- Glucose FHR FuHt Pres Dilation -???-???-???-???-??? -???-???-???-???-??? -???-???- Effaced St Visit Note 09/20/24 -???-???-???-???-??? -???-???-???-???-??? -???-???- 9w 4d 161 lb 6 oz (+6 oz) 117/81 -???-???-???-???-??? -???-???-???-???-??? -???-???- 188 -???-???-???-???-??? -???-???-???-???-??? -???-???- KW- CRL cons with dates. declines NIPT 10/23/24 -???-???-???-???-??? -???-???-???-???-??? -???-?? (more content not included)... Normal [facility] Absolute lymphocyte countOrd ered By: Alyse Raza on 01-15-2025 Lymphocytes Auto (Unsp spec) [#/Vol] 0.64 10*3/uL Low 0.83-4.51 [facility] Absolute neutrophil countOrd ered By: Alyse Raza on 01-15-2025 Neutrophils (Bld) [#/Vol] 7.2 10*3/uL 2.0-7.7 [facility] Automated lymphocyte count a s percentage of total leukocytesOrdered By: Alyse Raza on 01-15-2025 Lymphocytes/100 WBC Auto (Unsp spec) 7.5 % Low 19-41 [facility] Basophil percentageOrdered B y: Alyse Raza on 01-15-2025 Basophils/100 WBC (Bld) 0.3 % 0-1 [facility] CBC W/Diff, Automatedon Absolute Lymph 0.64 X10 3/uL Low 0.83-4.51 [facility] Comment on above: Performed By: #### L 3890.6006, L509.8002, L501.0250, L100.0100 ####[facility] [address] [place], [address] Absolute Neut 7.2 X10 3/uL Normal 2.0-7.7 [facility] Comment on above: Performed By: #### L 3890.6006, L509.8002, L501.0250, L100.0100 ####[facility] [address] [place], [address] Basophils/100 WBC (Bld) 0.3 % Normal 0-1 [facility] Comment on above: Performed By: #### L 3890.6006, L509.8002, L501.0250, L100.0100 ####[facility] [address] [place], [address] Eosinophils/100 WBC (Bld) 0.2 % Normal 0-5 [facility] Comment on above: Performed By: #### L 3890.6006, L509.8002, L501.0250, L100.0100 ####[facility] [address] [place], [address] Erythrocyte distribution width (RBC) [Ratio] 13.1 % Normal 11.6-14.6 [facility] Comment on above: Performed By: #### L 3890.6006, L509.8002, L501.0250, L100.0100 ####[facility] [address] [place], [address] Hematocrit (Bld) [Volume fraction] 34.7 % Low 37-47 [facility] Comment on above: Performed By: #### L 3890.6006, L509.8002, L501.0250, L100.0100 ####[facility] [address] [place], [address] Hemoglobin (Bld) [Mass/Vol] 11.6 g/dL Low 12.0-15.0 [facility] Comment on above: Performed By: #### L 3890.6006, L509.8002, L501.0250, L100.0100 ####[facility] [address] [place], [address] IG% 0.500 Normal 0.0-0.9 [facility] Comment on above: Result Comment: IG% - Immature Granulocytes (promyelocytes, myelocytes and metamyelocytes) > 1% indicates that a LEFT SHIFT is Present. Performed By: #### L 3890.6006, L509.8002, L501.0250, L100.0100 ####[facility] [address] [place], [address] Lymphocytes/100 WBC (Bld) 7.5 % Low 19-41 [facility] Comment on above: Performed By: #### L 3890.6006, L509.8002, L501.0250, L100.0100 ####[facility] [address] [place], [address] MCH (RBC) [Entitic mass] 32.1 pg High 27.0-32.0 [facility] Comment on above: Performed By: #### L 3890.6006, L509.8002, L501.0250, L100.0100 ####[facility] [address] [place], [address] MCHC (RBC) [Mass/Vol] 33.4 g/dL Normal 32-36 [facility] Comment on above: Performed By: #### L 3890.6006, L509.8002, L501.0250, L100.0100 ####[facility] [address] [place], [address] MCV (RBC) [Entitic vol] 96.1 fL Normal 81-99 [facility] Comment on above: Performed By: #### L 3890.6006, L509.8002, L501.0250, L100.0100 ####[facility] [address] [place], [address] Monocytes/100 WBC (Bld) 8.1 % Normal 0-10 [facility] Comment on above: Performed By: #### L 3890.6006, L509.8002, L501.0250, L100.0100 ####[facility] [address] [place], [address] Neutrophils/100 WBC (Bld) 83.4 % High 47-70 [facility] Comment on above: Performed By: #### L 3890.6006, L509.8002, L501.0250, L100.0100 ####[facility] [address] [place], [address] Nucleated RBC (Bld) [#/Vol] 0 10*3/uL Normal 0-5 [facility] Comment on above: Performed By: #### L 3890.6006, L509.8002, L501.0250, L100.0100 ####[facility] [address] [place], [address] Platelet mean volume (Bld) [Entitic vol] 9.9 fL Normal 6.2-12.0 [facility] Comment on above: Performed By: #### L 3890.6006, L509.8002, L501.0250, L100.0100 ####[facility] [address] [place], [address] Platelets (Bld) [#/Vol] 300 10*3/uL Normal 150-450 [facility] Comment on above: Performed By: #### L 3890.6006, L509.8002, L501.0250, L100.0100 ####[facility] [address] [place], [address] RBC (Bld) [#/Vol] 3.61 10*6/uL Low 4.2-5.4 [facility] Comment on above: Performed By: #### L 3890.6006, L509.8002, L501.0250, L100.0100 ####[facility] [address] [place], [address] RDW SD 46.6 fl High 35.1-43.9 [facility] Comment on above: Performed By: #### L 3890.6006, L509.8002, L501.0250, L100.0100 ####[facility] [address] [place], [address] WBC (Bld) [#/Vol] 8.6 10*3/uL Normal 4.4-11.0 [facility] Comment on above: Performed By: #### L 3890.6006, L509.8002, L501.0250, L100.0100 ####[facility] [address] [place], [address] Eosinophil percentageOrdered By: Alyse Raza on 01-15-2025 Eosinophils/100 WBC (Bld) 0.2 % 0-5 [facility] Erythrocyte distribution wid th ratioOrdered By: Alysecathy Raza on 01-15-2025 Erythrocyte distribution width (RBC) [Ratio] 13.1 % 11.6-14.6 [facility] Erythrocyte distribution wid th standard deviationOrdered By: Alyse [place] on 01-15-2025 Erythrocyte distribution width (RBC) [Ratio] 46.6 fl High 35.1-43.9 [facility] Glucose Challenge Gest 1H 50 coy 01-15-2025 GLU GEST 50g 1H 104 mg/dL Normal 70-140 [facility] Comment on above: Performed By: #### L 3890.6006, L509.8002, L501.0250, L100.0100 ####[facility] [address] [place], [address] Glucose measurement at 2 chelsea rs post-dose gestational glucose tolerance testOrdered By: Alyse Raza on 01-15-2025 Glucose [Mass/Vol] 104 mg/dL 70-140 [facility] HIVon 01-15-2025 HIV Non-Reactive Normal Nonreactive [facility] Comment on above: Result Comment: Non- Reactive Reactive Repeatedly reactive samples must be confirmed according to CDC recommended confirmatory algorithms. The subresults for either HIVAG or AHIV can be used as an aid in the selection of the confirmation algorithm for reactive samples. Send out specimens with Reactive results to [facility] for confirmation. Order the HIV antibody detection and differentiation: #[id number] Performed By: #### L 3890.6006, L509.8002, L501.0250, L100.0100 ####[facility] [address] [place], [address] Hematocrit Auto (Bld) [Volum e fraction]Ordered By: Alyse Raza on 01-15-2025 Hematocrit (Bld) [Volume fraction] 34.7 % Low 37-47 [facility] Hemoglobin measurementOrdere d By: Alyse Raza on 01-15-2025 Hemoglobin (Bld) [Mass/Vol] 11.6 g/dL Low 12.0-15.0 [facility] Immature granulocytes/100 WB C Auto (Bld)Ordered By: Alyse Raza on 01-15-2025 Immature granulocytes/100 WBC (Bld) 0.500 % 0.0-0.9 [facility] Comment on above: IG% - Immature Granu locytes (promyelocytes, myelocytes and metamyelocytes) > 1% indicates that a LEFT SHIFT is Present. Laboratory - Chemistry and C hemistry - challengeOrdered By: Pooja Diop on 01-15-2025 Glucose Ql (U) Negative [facility] Laboratory - UrinalysisOrder ed By: Pooja Diop on 01-15-2025 Protein Ql (U) Negative [facility] MCV (mean corpuscular volume ) determinationOrdered By: Alyse Raza on 01-15-2025 MCV (RBC) [Entitic vol] 96.1 fL 81-99 [facility] Mean corpuscular hemoglobin (MCH) determinationOrdered By: Alyse Raza on 01-15-2025 MCH (RBC) [Entitic mass] 32.1 pg High 27.0-32.0 [facility] Mean corpuscular hemoglobin concentration (MCHC) determinationOrdered By: Alyse Raza on 01-15-2025 MCHC (RBC) [Mass/Vol] 33.4 g/dL 32-36 [facility] Mean platelet volume determi nationOrdered By: Alyse Raza on 01-15-2025 Platelet mean volume (Bld) [Entitic vol] 9.9 fL 6.2-12.0 [facility] Monocyte percentageOrdered B y: Alyse Raza on 01-15-2025 Monocytes/100 WBC (Bld) 8.1 % 0-10 [facility] Neutrophil percentageOrdered By: Alyse Raza on 01-15-2025 Neutrophils/100 WBC (Bld) 83.4 % High 47-70 [facility] No Panel InformationOrdered By: Alyse Raza on 01-15-2025 HIV (1&2) Antibody Non-Reactive Nonreactive [facility] Comment on above: Non-ReactiveReactive Repeatedly reactive samples must be confirmed according to CDC recommended confirmatory algorithms. The subresults for either HIVAG or AHIV can be used as an aid in the selection of the confirmation algorithm for reactive samples.Send out specimens with Reactive results to [facility] for confirmation.Order the HIV antibody detection and differentiation: #[id number] Nucleated red blood cell per centageOrdered By: Alyse Raza on 01-15-2025 Nucleated RBC/100 WBC (Bld) [Ratio] 0 % 0-5 [facility] [employer] Office Visit Reporton 01-15-2025 [employer] Office Visit Report [facility] [address], [address] [place] [address] OFFICE VISIT Date of Service: 01/15/25 MR#: [id number] Acct: [id number] Name: GIULIA HOGUE Rep #: [id number] : 1990 Provider: Dr. Pooja mckeon MD Age/Sex: 34/F Location: [facility] [place] Status: Signed Intake Vital Signs 10/23/24 10:21 12/18/24 08:25 01/15/25 09:15 Height 5 ft 4 in 5 ft 4 in 5 ft 4 in Weight: 175 lb 4 oz BMI 30.0 BP 109/73 Intake Visit Reasons: 26 wk ob Bunker Worker Required: No Is patient in pain?: No Feel stressed/tense/nervo us/anxious/difficult y sleeping: not at all Allergies No Known Allergies Allergy (Verified 01/15/25 09:16) Medications ???Medication ???Instructions ???Recorded ???Confirmed ???Type fluticasone propionate 50 1 spray intranasal PRN PRN 09/03/2 2 01/15/25 History mcg/actuation nasal allergies spray,suspension (Flonase Allergy Relief) cetirizine 10 mg capsule (Zyrtec) 10 mg PO QDAY PRN 08/31/24 History multivit-min no.71-iron fum 28 cap PO 08/31/24 01/15/25 History mg-folate no.1 1 mg-dha 300 mg capsule (PNV-Thornton) Last Menstrual Period: 07/15/24 Zika: Zika virus screening: Negative : No PFSH PFSH Medical History (Updated 01/15/25 @ 09:[address] Pooja Diop MD) URI (upper respiratory infection) Lab test negative for COVID-19 virus Seasonal allergies Surgical History History of wisdom tooth extraction Family History Father Heart disease Mother Diabetes Other Hypertension Social History adopted: No household members: spouse and children housing: house number of children: 2 current occupational status: employed 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 current occupational exposures/hazards: No pets and animals: Yes pets and animals: dog(s) history of recent travel: No sexually active: Yes Smoking Status: Never smoker alcohol intake: current details: socially- not while substance use type: does not use well-balanced diet: daily or most days caffeine: Yes Type: coffee Number of servings: 1 eating out: 1-3 times/week during the past year weight has: remained stable what type of physical activity do you participate in: none angel/gnosticist: Scientology seatbelt use: always do you feel safe at home: Yes additional social history: Spouse - Jan Hansen and tamar children History 3 Elective abortions Hx Para 2 Spontaneous abortions Hx # Term Pregnancies Ectopic pregnancies Hx # Pregnancies Multiple births # of living children 2 Past Pregnancies Del. Date Name GA/Weeks Outcome Route Bth Weight Infant Gen Labor Lgth Anesthesia Del Locatn Provider FOB 01/05/19 Waqas 41 live - full term 7#13oz Male epidural [facility] Be emy Hansen 09/04/21 Tamar 39 live - full term 8# Female epidural [facility] Bryson Hansen Delivery Date: 01/05/19 Last Updated by: Courtney Lovett pitocin used after labor started HPI 26 wk ob Details: GIULIA HOGUE is a 34 year old who presents for routine OB visit. OB Visit DONNY Calculator Estimated Delivery Date Method Current WG Current Estimate 04/21/25 LMP (Certain) 26w 2d Other Estimates 04/21/25 Ultrasound #1 26w 2d Expected Delivery Route/Plan Labor Preferences- CB/BF classes: no labor support person: Tyrone labor intervention preferences: [] pain management options preferred: epidural cut cord/dad catch: YES : yes PP control planned: discussed discussed possible routes of delivery and associated risks: [] special requests: [] Specific Issue/Plans Covid status: [] Flu vaccine: [] Tdap vaccine: [] Rhogam: NA LARC form signed: yes Problem list reviewed and updated with the most current plan of care details and appropriate orders placed. Relevant counseling for the gestational age provided. Continue routine care and follow up unless otherwise noted in visit notes/problem list details Initial Weight: 161 lb Date -???-???-???-???-??? -???-???-???-???-??? -???-???- EGA Weight BP Urine Prot -???-???-???-???-??? -???-???-???-???-??? -???-???- Glucose FHR FuHt Pres Dilation -???-???-???-???-??? -???-???-???-???-??? -???-???- Effaced St Visit Note 09/20/24 -???-???-???-???-??? -???-???-???-???-??? -???-???- 9w 4d 161 lb 6 oz (+6 oz) 117/81 -???-???-???-???-??? -???-???-???-???-??? -???-???- 188 -???-???-???-???-??? -???-???-???-???-??? -???-???- KW- CRL cons with dates. declines NIPT 10/23/24 -???-???-???-???-??? -???-???-???-???-??? -???-???- 14w (more content not included)... Normal [facility] Platelet countOrdered By: Shakeel Raza on 01-15-2025 Platelets (Bld) [#/Vol] 300 10*3/uL 150-450 [facility] RBC Auto (Bld) [#/Vol]Ordere d By: Alyse Raza on 01-15-2025 RBC (Bld) [#/Vol] 3.61 10*6/uL Low 4.2-5.4 [facility] Syphilis Antibodieson 2024 Syphilis Abs Non-Reactive Normal Nonreactive [facility] Comment on above: Performed By: #### L 3890.6006, L509.8002, L501.0250, L100.0100 ####[facility] [address] [place], [address] White blood cell (WBC) count Ordered By: Alyse Raza on 01-15-2025 WBC (Bld) [#/Vol] 8.6 10*3/uL 4.4-11.0 [facility] Laboratory - Chemistry and C hemistry - challengeOrdered By: Alyse Raza on 12-18-2024 Glucose Ql (U) Negative [facility] Laboratory - UrinalysisOrder ed By: Alyse Raza on 12-18-2024 Protein Ql (U) Negative [facility] [employer] Office Visit Reporton 12-18-2024 [employer] Office Visit Report [facility], [address] [place] [address] OFFICE VISIT Date of Service: 12/18/24 MR#: [id number] Acct: [id number] Name: GIULIA HOGUE Kristine Rep #: [id number] : 1990 Provider: JEFFY guerrero Age/Sex: 34/F Location: [facility] [place] Status: Signed Intake Vital Signs 10/23/24 10:21 11/19/24 15:18 12/18/24 08:25 Height 5 ft 4 in 5 ft 4 in 5 ft 4 in Weight: 172 lb 6 oz BMI 29.5 BP 112/77 Intake Visit Reasons: 22 wk ob Bunker Worker Required: No Is patient in pain?: No Allergies No Known Allergies Allergy (Verified 12/18/24 08:25) Medications ???Medication ???Instructions ???Recorded ???Confirmed ???Type fluticasone propionate 50 1 spray intranasal PRN PRN 09/03/2 2 12/18/24 History mcg/actuation nasal allergies spray,suspension (Flonase Allergy Relief) cetirizine 10 mg capsule (Zyrtec) 10 mg PO QDAY PRN 08/31/24 History multivit-min no.71-iron fum 28 cap PO 08/31/24 12/18/24 History mg-folate no.1 1 mg-dha 300 mg capsule (PNV-Thornton) Last Menstrual Period: 07/15/24 Zika: Zika virus screening: Negative : Yes Have you fallen in the past year?: No PFSH PFSH Medical History URI (upper respiratory infection) Lab test negative for COVID-19 virus Seasonal allergies Surgical History History of wisdom tooth extraction Family History Father Heart disease Mother Diabetes Other Hypertension Social History adopted: No household members: spouse and children housing: house number of children: 2 current occupational status: employed 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 current occupational exposures/hazards: No pets and animals: Yes pets and animals: dog(s) history of recent travel: No sexually active: Yes Smoking Status: Never smoker alcohol intake: current details: socially- not while substance use type: does not use well-balanced diet: daily or most days caffeine: Yes Type: coffee Number of servings: 1 eating out: 1-3 times/week during the past year weight has: remained stable what type of physical activity do you participate in: none angel/gnosticist: Scientology seatbelt use: always do you feel safe at home: Yes additional social history: Spouse - Tyrone, Jan and tamar children History 3 Elective abortions Hx Para 2 Spontaneous abortions Hx # Term Pregnancies Ectopic pregnancies Hx # Pregnancies Multiple births # of living children 2 Past Pregnancies Del. Date Name GA/Weeks Outcome Route Bth Weight Gen Labor Lgth Anesthesia Del Locatn Provider FOB 01/05/19 Waqas 41 live - full term 7#13oz Male epidural [facility] Be emy Tyrone 09/04/21 Tamar 39 live - full term 8# Female epidural [facility] Bryson Hansen Delivery Date: 01/05/19 Last Updated by: Courtney Lovett pitocin used after labor started HPI 22 wk ob Details: GIULIA HOGUE is a 34 year old who presents for routine OB visit. OB Visit DONNY Calculator Estimated Delivery Date Method Current WG Current Estimate 04/21/25 LMP (Certain) 22w 2d Other Estimates 04/21/25 Ultrasound #1 22w 2d Expected Delivery Route/Plan Labor Preferences- CB/BF classes: no labor support person: Tyrone labor intervention preferences: [] pain management options preferred: epidural cut cord/dad catch: YES : yes PP control planned: discussed discussed possible routes of delivery and associated risks: [] special requests: [] Specific Issue/Plans Covid status: [] Flu vaccine: [] Tdap vaccine: [] Rhogam: NA LARC form signed: yes Problem list reviewed and updated with the most current plan of care details and appropriate orders placed. Relevant counseling for the gestational age provided. Continue routine care and follow up unless otherwise noted in visit notes/problem list details Initial Weight: 161 lb Date -???-???-???-???-??? -???-???-???-???-??? -???-???- EGA Weight BP Urine Prot -???-???-???-???-??? -???-???-???-???-??? -???-???- Glucose FHR FuHt Pres Dilation -???-???-???-???-??? -???-???-???-???-??? -???-???- Effaced St Visit Note 09/20/24 -???-???-???-???-??? -???-???-???-???-??? -???-???- 9w 4d 161 lb 6 oz (+6 oz) 117/81 -???-???-???-???-??? -???-???-???-???-??? -???-???- 188 -???-???-???-???-??? -???-???-???-???-??? -???-???- KW- CRL cons with dates. declines NIPT 10/23/24 -???-???-???-???-??? -???-???-???-???-??? -???-???- 14w 2d 165 lb 2 oz (+4 lb 2 oz) 119/77 Negative -???-?? (more content not included)... Normal [facility] Laboratory - Chemistry and C hemistry - challengeOrdered By: Pooja Diop on 11-19-2024 Glucose Ql (U) Negative [facility] Laboratory - UrinalysisOrder ed By: Pooja Diop on 11-19-2024 Protein Ql (U) Negative [facility] [employer] Office Visit Reporton 11-19-2024 [employer] Office Visit Report [facility] [address], [address] [place] [address] OFFICE VISIT Date of Service: 11/19/24 MR#: [id number] Acct: [id number] Name: GIULIA HOGUE Rep #: [id number] : 1990 Provider: Dr. Pooja mckeon MD Age/Sex: 34/F Location[place] [facility] Status: Signed Intake Vital Signs 09/20/24 12:59 10/23/24 10:21 11/19/24 15:18 Height 5 ft 4 in 5 ft 4 in 5 ft 4 in Weight: 170 lb 2 oz BMI 29.2 BP 122/78 H Intake Visit Reasons: 18 wk ob Bunker Worker Required: No Is patient in pain?: No Allergies No Known Allergies Allergy (Verified 11/19/24 15:18) Medications ???Medication ???Instructions ???Recorded ???Confirmed ???Type fluticasone propionate 50 1 spray intranasal PRN PRN 2 11/19/24 History mcg/actuation nasal allergies spray,suspension (Flonase Allergy Relief) cetirizine 10 mg capsule (Zyrtec) 10 mg PO QDAY PRN 08/31/24 History multivit-min no.71-iron fum 28 cap PO 08/31/24 11/19/24 History mg-folate no.1 1 mg-dha 300 mg capsule (PNV-Thornton) Last Menstrual Period: 07/15/24 Zika: Zika virus screening: Negative : No PFSH PFSH Medical History URI (upper respiratory infection) Lab test negative for COVID-19 virus Seasonal allergies Surgical History History of wisdom tooth extraction Family History Father Heart disease Mother Diabetes Other Hypertension Social History adopted: No household members: spouse and children housing: house number of children: 2 current occupational status: employed 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 current occupational exposures/hazards: No pets and animals: Yes pets and animals: dog(s) history of recent travel: No sexually active: Yes Smoking Status: Never smoker alcohol intake: current details: socially- not while substance use type: does not use well-balanced diet: daily or most days caffeine: Yes Type: coffee Number of servings: 1 eating out: 1-3 times/week during the past year weight has: remained stable what type of physical activity do you participate in: none angel/gnosticist: Scientology seatbelt use: always do you feel safe at home: Yes additional social history: Spouse - Jan Hansen and tamar children History 3 Elective abortions Hx Para 2 Spontaneous abortions Hx # Term Pregnancies Ectopic pregnancies Hx # Pregnancies Multiple births # of living children 2 Past Pregnancies Del. Date Name GA/Weeks Outcome Route Bth Weight Infant Gen Labor Lgth Anesthesia Del Locatn Provider FOB 01/05/19 Waqas 41 live - full term 7#13oz Male epidural [facility] Be emy Hansen 09/04/21 Tamar 39 live - full term 8# Female epidural [facility] Bryson Hansen Delivery Date: 01/05/19 Last Updated by: Courtney Lovett pitocin used after labor started HPI 18 wk ob Details: GIULIA HOGUE is a 34 year old who presents for routine OB visit. OB Visit DONNY Calculator Estimated Delivery Date Method Current WG Current Estimate 04/21/25 LMP (Certain) 18w 1d Other Estimates 04/21/25 Ultrasound #1 18w 1d Expected Delivery Route/Plan Labor Preferences- CB/BF classes: [] labor support person: [] labor intervention preferences: [] pain management options preferred: [] cut cord/dad catch: [] : [] PP control planned: [] discussed possible routes of delivery and associated risks: [] special requests: [] Specific Issue/Plans Covid status: [] Flu vaccine: [] Tdap vaccine: [] Rhogam: [] LARC form signed: [] Problem list reviewed and updated with the most current plan of care details and appropriate orders placed. Relevant counseling for the gestational age provided. Continue routine care and follow up unless otherwise noted in visit notes/problem list details Initial Weight: 161 lb Date -???-???-???-???-??? -???-???-???-???-??? -???-???- EGA Weight BP Urine Prot -???-???-???-???-??? -???-???-???-???-??? -???-???- Glucose FHR FuHt Pres Dilation -???-???-???-???-??? -???-???-???-???-??? -???-???- Effaced St Visit Note 09/20/24 -???-???-???-???-??? -???-???-???-???-??? -???-???- 9w 4d 161 lb 6 oz (+6 oz) 117/81 -???-???-???-???-??? -???-???-???-???-??? -???-???- 188 -???-???-???-???-??? -???-???-???-???-??? -???-???- KW- CRL cons with dates. declines NIPT 10/23/24 -???-???-???-???-??? -???-???-???-???-??? -???-???- 14w 2d 165 lb 2 oz (+4 lb 2 oz) 119/77 Negative -???-???-???-???-??? -???-???-???-???-??? -???-??? (more content not included)... Normal [facility] Laboratory - Chemistry and C hemistry - challengeOrdered By: Kaleigh Dietz on 10-23-2024 Glucose Ql (U) Negative [facility] - UrinalysisOrder ed By: Kaleigh Dietz on 10-23-2024 Protein Ql (U) Negative [facility] [employer] Office Visit Reporton 10-23-2024 [employer] Office Visit Report [facility] [address], [address] [place] [address] OFFICE VISIT Date of Service: 10/23/24 MR#: [id number] Acct: [id number] Name: GIULIA HOGUE Rep #: [id number] : 1990 Provider: Dr. Kaleigh Pineda, DO Age/Sex: 34/F Location: [facility] [place] Status: Signed Intake Vital Signs 08/19/23 14:44 09/20/24 12:59 10/23/24 10:21 10/23/24 10:21 Height 5 ft 4 in 5 ft 4 in 5 ft 4 in 5 ft 4 in Weight: 165 lb 2 oz BMI 28.3 BP 119/77 Intake Visit Reasons: 13wk OB Bunker Worker Required: No Is patient in pain?: No Allergies No Known Allergies Allergy (Verified 10/23/24 10:20) Medications ???Medication ???Instructions ???Recorded ???Confirmed ???Type fluticasone propionate 50 1 spray intranasal PRN PRN 2 10/23/24 History mcg/actuation nasal allergies spray,suspension (Flonase Allergy Relief) cetirizine 10 mg capsule (Zyrtec) 10 mg PO QDAY PRN 08/31/24 History multivit-min no.71-iron fum 28 cap PO 08/31/24 10/23/24 History mg-folate no.1 1 mg-dha 300 mg capsule (PNV-Thornton) Last Menstrual Period: 07/15/24 Zika: Zika virus screening: Negative : No PFSH PFSH Medical History URI (upper respiratory infection) Lab test negative for COVID-19 virus Seasonal allergies Surgical History History of wisdom tooth extraction Family History Father Heart disease Mother Diabetes Other Hypertension Social History adopted: No household members: spouse and children housing: house number of children: 2 current occupational status: employed 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 current occupational exposures/hazards: No pets and animals: Yes pets and animals: dog(s) history of recent travel: No sexually active: Yes Smoking Status: Never smoker alcohol intake: current details: socially- not while substance use type: does not use well-balanced diet: daily or most days caffeine: Yes Type: coffee Number of servings: 1 eating out: 1-3 times/week during the past year weight has: remained stable what type of physical activity do you participate in: none angel/gnosticist: Scientology seatbelt use: always do you feel safe at home: Yes additional social history: Spouse - Tyrone, Jan and tamar children History 3 Elective abortions Hx Para 2 Spontaneous abortions Hx # Term Pregnancies Ectopic pregnancies Hx # Pregnancies Multiple births # of living children 2 Past Pregnancies Del. Date Name GA/Weeks Outcome Route Bth Weight Infant Gen Labor Lgth Anesthesia Del Locatn Provider FOB 01/05/19 Waqas 41 live - full term 7#13oz Male epidural [facility] Be nekos Tyrone 09/04/21 Tamar 39 live - full term 8# Female epidural [facility] Jam bernice Hansen Delivery Date: 01/05/19 Last Updated by: Courtney Lovett pitocin used after labor started HPI 13wk OB Details: GIULIA HOGUE is a 34 year old who presents for routine OB visit. OB Visit DONNY Calculator Estimated Delivery Date Method Current WG Current Estimate 04/21/25 LMP (Certain) 14w 2d Other Estimates 04/21/25 Ultrasound #1 14w 2d Expected Delivery Route/Plan Labor Preferences- CB/BF classes: [] labor support person: [] labor intervention preferences: [] pain management options preferred: [] cut cord/dad catch: [] : [] PP control planned: [] discussed possible routes of delivery and associated risks: [] special requests: [] Specific Issue/Plans Covid status: [] Flu vaccine: [] Tdap vaccine: [] Rhogam: [] LARC form signed: [] Problem list reviewed and updated with the most current plan of care details and appropriate orders placed. Relevant counseling for the gestational age provided. Continue routine care and follow up unless otherwise noted in visit notes/problem list details Initial Weight: 161 lb Date -???-???-???-???-??? -???-???-???-???-??? -???-???- EGA Weight BP Urine Prot -???-???-???-???-??? -???-???-???-???-??? -???-???- Glucose FHR FuHt Pres Dilation -???-???-???-???-??? -???-???-???-???-??? -???-???- Effaced St Visit Note 09/20/24 -???-???-???-???-??? -???-???-???-???-??? -???-???- 9w 4d 161 lb 6 oz (+6 oz) 117/81 -???-???-???-???-??? -???-???-???-???-??? -???-???- 188 -???-???-???-???-??? -???-???-???-???-??? -???-???- KW- CRL cons with dates. declines NIPT 10/23/24 -???-???-???-???-??? -???-???-???-???-??? -???-???- 14w 2d 165 lb 2 oz (+4 lb 2 oz) 119/77 Negative -???-???-???-???-??? - (more content not included)... Normal [facility] Chlamydia/GC KENYETTA aptimaon CHLAMY,NUC ACID Negative Normal Negative [facility] Comment on above: Performed By: #### L 7000.1800, M100.2200 #### [facility] [place], [address] GC BY NUC ACID Negative Normal Negative [facility] Comment on above: Result Comment: Perf ormed at: =G - [facility] [address] [place] [id number] Milk Condenser: Patti Howell MD, Phone: [phone] Performed By: #### L 7000.1800, M100.2200 #### [facility] [address] [place], [place], [id number] Urine Cultureon 09-21-2024 URC Culture exhibits no growth. Normal [facility] Comment on above: Performed By: #### L 7000.1800, M100.2200 #### [facility] [address] [place], [place], [id number] Absolute lymphocyte countOrd ered By: Petra Goncalves on 09-20-2024 Lymphocytes Auto (Unsp spec) [#/Vol] 1.19 10*3/uL 0.83-4.51 [facility] Absolute neutrophil countOrd ered By: Petra Goncalves on 09-20-2024 Neutrophils (Bld) [#/Vol] 8.3 10*3/uL High 2.0-7.7 [facility] Automated lymphocyte count a s percentage of total leukocytesOrdered By: Petra Goncalves on 09-20-2024 Lymphocytes/100 WBC Auto (Unsp spec) 11.5 % Low 19-41 [facility] Basophil percentageOrdered B y: Petra Goncalves on 09-20-2024 Basophils/100 WBC (Bld) 0.3 % 0-1 [facility] CBC W/Diff, Automatedon 09-06 Absolute Lymph 1.19 X10 3/uL Normal 0.83-4.51 [facility] Comment on above: Performed By: #### L 100.0100, BTS, L509.4006, L3890.6102, L500.4100, L3890.6006, L3890.6301, L509.8002 #### [facility] [address] [place], [place], [id number] Absolute Neut 8.3 X10 3/uL High 2.0-7.7 [facility] Comment on above: Performed By: #### L 100.0100, BTS, L509.4006, L3890.6102, L500.4100, L3890.6006, L3890.6301, L509.8002 #### [facility] [address] [place], [address] Basophils/100 WBC (Bld) 0.3 % Normal 0-1 [facility] Comment on above: Performed By: #### L 100.0100, BTS, L509.4006, L3890.6102, L500.4100, L3890.6006, L3890.6301, L509.8002 #### [facility] [address] [place], [address] Eosinophils/100 WBC (Bld) 0.3 % Normal 0-5 [facility] Comment on above: Performed By: #### L 100.0100, BTS, L509.4006, L3890.6102, L500.4100, L3890.6006, L3890.6301, L509.8002 #### [facility] [address] [place], [address] Erythrocyte distribution width (RBC) [Ratio] 12.6 % Normal 11.6-14.6 [facility] Comment on above: Performed By: #### L 100.0100, BTS, L509.4006, L3890.6102, L500.4100, L3890.6006, L3890.6301, L509.8002 #### [facility] [address] [place], [address] Hematocrit (Bld) [Volume fraction] 37.2 % Normal 37-47 [facility] Comment on above: Performed By: #### L 100.0100, BTS, L509.4006, L3890.6102, L500.4100, L3890.6006, L3890.6301, L509.8002 #### [facility] [address] [place], [address] Hemoglobin (Bld) [Mass/Vol] 12.4 g/dL Normal 12.0-15.0 [facility] Comment on above: Performed By: #### L 100.0100, BTS, L509.4006, L3890.6102, L500.4100, L3890.6006, L3890.6301, L509.8002 #### [facility] [address] [place], [address] IG% 0.500 Normal 0.0-0.9 [facility] Comment on above: Result Comment: IG% - Immature Granulocytes (promyelocytes, myelocytes and metamyelocytes) > 1% indicates that a LEFT SHIFT is Present. Performed By: #### L 100.0100, BTS, L509.4006, L3890.6102, L500.4100, L3890.6006, L3890.6301, L509.8002 #### [facility] [address] [place], [address] Lymphocytes/100 WBC (Bld) 11.5 % Low 19-41 [facility] Comment on above: Performed By: #### L 100.0100, BTS, L509.4006, L3890.6102, L500.4100, L3890.6006, L3890.6301, L509.8002 #### [facility] [address] [place], [address] MCH (RBC) [Entitic mass] 30.2 pg Normal 27.0-32.0 [facility] Comment on above: Performed By: #### L 100.0100, BTS, L509.4006, L3890.6102, L500.4100, L3890.6006, L3890.6301, L509.8002 #### [facility] [address] [place], [address] MCHC (RBC) [Mass/Vol] 33.3 g/dL Normal 32-36 [facility] Comment on above: Performed By: #### L 100.0100, BTS, L509.4006, L3890.6102, L500.4100, L3890.6006, L3890.6301, L509.8002 #### [facility] [address] [place], [address] MCV (RBC) [Entitic vol] 90.5 fL Normal 81-99 [facility] Comment on above: Performed By: #### L 100.0100, BTS, L509.4006, L3890.6102, L500.4100, L3890.6006, L3890.6301, L509.8002 #### [facility] [address] [place], [address] Monocytes/100 WBC (Bld) 7.5 % Normal 0-10 [facility] Comment on above: Performed By: #### L 100.0100, BTS, L509.4006, L3890.6102, L500.4100, L3890.6006, L3890.6301, L509.8002 #### [facility] [address] [place], [address] Neutrophils/100 WBC (Bld) 79.9 % High 47-70 [facility] Comment on above: Performed By: #### L 100.0100, BTS, L509.4006, L3890.6102, L500.4100, L3890.6006, L3890.6301, L509.8002 #### [facility] [address] [place], [address] Nucleated RBC (Bld) [#/Vol] 0 10*3/uL Normal 0-5 [facility] Comment on above: Performed By: #### L 100.0100, BTS, L509.4006, L3890.6102, L500.4100, L3890.6006, L3890.6301, L509.8002 #### [facility] [address] [place], [address] Platelet mean volume (Bld) [Entitic vol] 9.8 fL Normal 6.2-12.0 [facility] Comment on above: Performed By: #### L 100.0100, BTS, L509.4006, L3890.6102, L500.4100, L3890.6006, L3890.6301, L509.8002 #### [facility] [address] [place], [address] Platelets (Bld) [#/Vol] 322 10*3/uL Normal 150-450 [facility] Comment on above: Performed By: #### L 100.0100, BTS, L509.4006, L3890.6102, L500.4100, L3890.6006, L3890.6301, L509.8002 #### [facility] [address] [place], [address] RBC (Bld) [#/Vol] 4.11 10*6/uL Low 4.2-5.4 [facility] Comment on above: Performed By: #### L 100.0100, BTS, L509.4006, L3890.6102, L500.4100, L3890.6006, L3890.6301, L509.8002 #### [facility] [address] [place], [address] RDW SD 41.7 fl Normal 35.1-43.9 [facility] Comment on above: Performed By: #### L 100.0100, BTS, L509.4006, L3890.6102, L500.4100, L3890.6006, L3890.6301, L509.8002 #### [facility] [address] [place], [address] WBC (Bld) [#/Vol] 10.3 10*3/uL Normal 4.4-11.0 [facility] Comment on above: Performed By: #### L 100.0100, BTS, L509.4006, L3890.6102, L500.4100, L3890.6006, L3890.6301, L509.8002 #### [facility] [address] [place], [place], [id number] Calculated very low density lipoprotein (VLDL) cholesterol measurementOrdered By: Ptera Goncalves on 09-20-2024 Calculated very low density lipoprotein (VLDL) cholesterol measurement 24 mg/dL 5-40 [facility] Chlamydia trachomatis rRNA d etection by probe and target amplification methodOrdered By: Petra Goncalves on 09-20-2024 C. trachomatis rRNA KENYETTA+probe Ql (Unsp spec) Negative Negative [facility] Eosinophil percentageOrdered By: Petra Goncalves on 09-20-2024 Eosinophils/100 WBC (Bld) 0.3 % 0-5 [facility] Erythrocyte distribution wid th ratioOrdered By: Petra Goncalves on 09-20-2024 Erythrocyte distribution width (RBC) [Ratio] 12.6 % 11.6-14.6 [facility] Erythrocyte distribution wid th standard deviationOrdered By: Petra Goncalves on 09-20-2024 Erythrocyte distribution width (RBC) [Ratio] 41.7 fl 35.1-43.9 [facility] HIVon 09-20-2024 HIV Non-Reactive Normal Nonreactive [facility] Comment on above: Result Comment: Non- Reactive Reactive Repeatedly reactive samples must be confirmed according to CDC recommended confirmatory algorithms. The subresults for either HIVAG or AHIV can be used as an aid in the selection of the confirmation algorithm for reactive samples. Send out specimens with Reactive results to [facility] for confirmation. Order the HIV antibody detection and differentiation: lc#[id number] Performed By: #### L 100.0100, BTS, L509.4006, L3890.6102, L500.4100, L3890.6006, L3890.6301, L509.8002 #### [facility] [address] [place], [place], [id number] Hematocrit Auto (Bld) [Volum e fraction]Ordered By: Petra Goncalves on 09-20-2024 Hematocrit (Bld) [Volume fraction] 37.2 % 37-47 [facility] Hemoglobin measurementOrdere d By: Petra Goncalves on 09-20-2024 Hemoglobin (Bld) [Mass/Vol] 12.4 g/dL 12.0-15.0 [facility] Hepatitis C Antibodyon 09-20 Hepatitis C Ab Non-Reactive Normal Nonreactive [facility] Comment on above: Result Comment: Reac tive: Presumptive evidence of antibodies to HCV. Follow CDC recommendations for supplemental testing. Non-Reactive: Antibodies to HCV were not detected; does not exclude the possibility of exposure to HCV Reactive Results are presumptive evidence of antibodies to HCV. Follow CDC recommendations for supplemental testing. Order confirmation testing: HCV Quant by PCR testing - HCVPCR #[id number] Non Reactive: < 0.8 Equivocal: >/= 0.8 to < 1.0 Reactive: >/= 1.0 The [facility] requires that a reactive/equivocal HCV antibody result be sent out for confirmation. HCV Quant by PCR testing. Performed By: #### L 100.0100, BTS, L509.4006, L3890.6102, L500.4100, L3890.6006, L3890.6301, L509.8002 ####[facility] [id number] [place], [address] Immature granulocytes/100 WB C Auto (Bld)Ordered By: Petra Goncalves on 09-20-2024 Immature granulocytes/100 WBC (Bld) 0.500 % 0.0-0.9 [facility] Comment on above: IG% - Immature Granu locytes (promyelocytes, myelocytes and metamyelocytes) > 1% indicates that a LEFT SHIFT is Present. L3890.6102on 09-20-2024 HEP B Surf Ag Non-Reactive Normal Nonreactive [facility] Comment on above: Result Comment: Reac tive: Presumptive evidence of HBV. Repeatedly reactive samples must be confirmed using a neutralization test ([employer] HBsAg Confirmatory Test) Non-Reactive: HBsAg not detected; does not exclude the possibility of exposure to HBV Performed By: #### L 100.0100, BTS, L509.4006, L3890.6102, L500.4100, L3890.6006, L3890.6301, L509.8002 ####[facility] [id number] [place], [address] L509.4006on 09-20-2024 Rubella IgG REAC Normal Nonreactive [facility] Comment on above: Result Comment: Anti body Result: Interpretation Non-Reactive: Non-Immune Reactive: Immune The following results were obtained with the [employer] Rubella IgG assay. Results from assays of other manufacturers cannot be used interchangeably. Performed By: #### L 100.0100, BTS, L509.4006, L3890.6102, L500.4100, L3890.6006, L3890.6301, L509.8002 #### [facility] [address] [place], [address] LDL calc ser/plasOrdered By: Petra Goncalves on 09-20-2024 Cholesterol in LDL [Mass/Vol] 120 mg/dL [facility] Comment on above: Naqiuwvrzb=471-617 m g/dL & Higher Frts=361 mg/dL or greater Laboratory - Microbiology an d Antimicrobial susceptibilityOrdered By: Petra Goncalves on 09-20-2024 HBV surface Ag Ql (S) Non-Reactive Nonreactive [facility] Comment on above: Reactive: Presumptiv e evidence of HBV. Repeatedly reactive samples must be confirmed using a neutralization test ([employer] HBsAg Confirmatory Test)Non-Reactive: HBsAg not detected; does not exclude the possibility of exposure to HBV Lipid Profileon 09-20-2024 CHOL:HDL 3.33 Normal [facility] Comment on above: Performed By: #### L 100.0100, BTS, L509.4006, L3890.6102, L500.4100, L3890.6006, L3890.6301, L509.8002 #### [facility] [address] [place], [place], [id number] Cholesterol [Mass/Vol] 205 mg/dL High <=200 [facility] Comment on above: Result Comment: Chol esterol level, Desirable <200 mg/dL Borderline high cholesterol 200-239 mg/dL High cholesterol >=240 mg/dL Recommendations of the NCEP Adult Treatment Panel for the following risk-cutoff thresholds for the [place] population. Performed By: #### L 100.0100, BTS, L509.4006, L3890.6102, L500.4100, L3890.6006, L3890.6301, L509.8002 #### [facility] [address] [place], [address] Cholesterol in HDL [Mass/Vol] 62 mg/dL Normal [facility] Comment on above: Result Comment: Irma onal Cholesterol Education Program (NCEP) guidelines: <40 mg/dL: Low HDL-cholesterol (major risk factor for CHD) >= 60 mg/dL: High HDL-cholesterol (negative risk factor for CHD) HDL-cholesterol is affected by a number of factors, e.g. smoking, exercise, hormones, sex and age. Performed By: #### L 100.0100, BTS, L509.4006, L3890.6102, L500.4100, L3890.6006, L3890.6301, L509.8002 #### [facility] [address] [place], [address] Cholesterol in LDL [Mass/Vol] 120 mg/dL Normal [facility] Comment on above: Result Comment: Bord lhurxj=281-623 mg/dL Higher Pqkf=556 mg/dL or greater Performed By: #### L 100.0100, BTS, L509.4006, L3890.6102, L500.4100, L3890.6006, L3890.6301, L509.8002 #### [facility] [address] [place], [address] Cholesterol in VLDL [Mass/Vol] 24 mg/dL Normal 5-40 [facility] Comment on above: Performed By: #### L 100.0100, BTS, L509.4006, L3890.6102, L500.4100, L3890.6006, L3890.6301, L509.8002 #### [facility] [address] [place], [place], [id number] Triglyceride [Mass/Vol] 119 mg/dL Normal [facility] Comment on above: Result Comment: The drugs N-Acetylcysteine and Metamizole may falsely depress this assay. Normal range: <150 mg/dL Borderline High: 150-199 mg/dL High: 200-499 mg/dL Very High: >500 mg/dL Performed By: #### L 100.0100, BTS, L509.4006, L3890.6102, L500.4100, L3890.6006, L3890.6301, L509.8002 #### [facility] [address] [place], [place], [id number] MCV (mean corpuscular volume ) determinationOrdered By: Petra Goncalves on 09-20-2024 MCV (RBC) [Entitic vol] 90.5 fL 81-99 [facility] Mean corpuscular hemoglobin (MCH) determinationOrdered By: Petra Goncalves on 09-20-2024 MCH (RBC) [Entitic mass] 30.2 pg 27.0-32.0 [facility] Mean corpuscular hemoglobin concentration (MCHC) determinationOrdered By: Petra Goncalves on 09-20-2024 MCHC (RBC) [Mass/Vol] 33.3 g/dL 32-36 [facility] Mean platelet volume determi nationOrdered By: Petra Goncalves on 09-20-2024 Platelet mean volume (Bld) [Entitic vol] 9.8 fL 6.2-12.0 [facility] Monocyte percentageOrdered B y: Petra Goncalves on 09-20-2024 Monocytes/100 WBC (Bld) 7.5 % 0-10 [facility] Neisseria gonorrhoeae nuclei c acid detection by amplified probe techniqueOrdered By: Petra Goncalves on 09-20-2024 N. gonorrhoeae DNA KENYETTA+probe Ql (Unsp spec) Negative Negative [facility] Comment on above: Performed at: =[facility] [address] [id number] Director: Patti Howell MD, Phone: [phone] Neutrophil percentageOrdered By: Petra Goncalves on 09-20-2024 Neutrophils/100 WBC (Bld) 79.9 % High 47-70 [facility] No Panel InformationOrdered By: Petra Goncalves on 09-20-2024 HIV (1&2) Antibody Non-Reactive Nonreactive [facility] Comment on above: Non-ReactiveReactive Repeatedly reactive samples must be confirmed according to CDC recommended confirmatory algorithms. The subresults for either HIVAG or AHIV can be used as an aid in the selection of the confirmation algorithm for reactive samples.Send out specimens with Reactive results to [facility] for confirmation.Order the HIV antibody detection and differentiation: #[id number] Nucleated red blood cell per centageOrdered By: Petra Goncalves on 09-20-2024 Nucleated RBC/100 WBC (Bld) [Ratio] 0 % 0-5 [facility] [employer] Office Visit Reporton 09-20-2024 [employer] Office Visit Report 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 Is patient in pain?: No Allergies No Known Allergies Allergy (Verified 09/20/24 12:57) Medications ???Medication ???Instructions ???Recorded ???Confirmed ???Type fluticasone propionate 50 1 spray intranasal PRN PRN 2 09/20/24 History mcg/actuation nasal allergies spray,suspension (Flonase Allergy Relief) cetirizine 10 mg capsule (Zyrtec) 10 mg PO QDAY PRN 08/31/24 History multivit-min no.71-iron fum 28 cap PO 08/31/24 09/20/24 History mg-folate no.1 1 mg-dha 300 mg capsule (PNV-Thornton) Last Menstrual Period: 07/15/24 : Yes PFSH PFSH Medical History URI (upper respiratory infection) Lab test negative for COVID-19 virus Seasonal allergies Surgical History History of wisdom tooth extraction Family History Father Heart disease Mother Diabetes Other Hypertension Social History adopted: No household members: spouse and children housing: house number of children: 2 service: No current occupational status: employed 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 current occupational exposures/hazards: No pets and animals: Yes pets and animals: dog(s) history of recent travel: No sexually active: Yes Smoking Status: Never smoker alcohol intake: current details: socially- not while substance use type: does not use well-balanced diet: daily or most days caffeine: Yes Type: coffee Number of servings: 1 eating out: 1-3 times/week during the past year weight has: remained stable what type of physical activity do you participate in: none angel/gnosticist: Scientology seatbelt use: always do you feel safe at home: Yes additional social history: Spouse - Tyrone, Jan and tamar children History 3 Elective abortions Hx Para 2 Spontaneous abortions Hx # Term Pregnancies Ectopic pregnancies Hx # Pregnancies Multiple births # of living children 2 Past Pregnancies Del. Date Name GA/Weeks Outcome Route Bth Weight Infant Gen Labor Lgth Anesthesia Del Locatn Provider FOB 01/05/19 Waqas 41 live - full term 7#13oz Male epidural [facility] Be emy Hansen 09/04/21 Tamar 39 live - full term 8# Female epidural [facility] Bryson Hansen Delivery Date: 01/05/19 Last Updated by: Courtney Lovett pitocin used after labor started HPI New OB, LMP 3/9, DONNY 04/21 Details: GIULIA HOGUE is a 34 year old who presents for New OB visit. OB Visit DONNY Calculator Estimated Delivery Date Method Current WG Current Estimate 04/21/25 LMP (Certain) 9w 4d Other Estimates 04/21/25 Ultrasound #1 9w 4d Comments: HIV: Urine Culture: Sequential Screen: NIPT Screen: Estimated Due Date: 04/21/25 Expected Delivery Route/Plan Labor Preferences- CB/BF classes: [] labor support person: [] labor intervention preferences: [] pain management options preferred: [] cut cord/dad catch: [] : [] PP control planned: [] discussed possible routes of delivery and associated risks: [] special requests: [] Specific Issue/Plans Covid status: [] Flu vaccine: [] Tdap vaccine: [] Rhogam: [] LARC form signed: [] Problem list reviewed and updated with the most current plan of care details and appropriate orders placed. Relevant counseling for the gestational age provided. Continue routine care and follow up unless otherwise noted in visit notes/problem list details Initial Weight: 161 lb Date -???-???-???-???-??? -???-???-???-???-??? -???-???- EGA Weight BP Urine Prot -???-???-???-???-??? -???-???-???-???-??? -???-???- Glucose FHR FuHt Pres Dilation -???-???-???-???-??? -???-???-???-???-??? -???-???- Effaced St Visit Note 09/20/24 -???-???-???-???-??? -???-???-???-???-??? -???-???- 9w 4d 161 lb 6 oz (+6 oz) 117/81 -???-???-???-???-??? -???-???-???-???-??? -???-???- 188 -???-???-???-???-??? -???-???-???-???-??? -???-???- KW- CRL cons with dates. declines NIPT Menstrual History Last Menstrual P (more content not included)... Normal [facility] Platelet countOrdered By: Mikel Goncalves on 09-20-2024 Platelets (Bld) [#/Vol] 322 10*3/uL 150-450 [facility] RBC Auto (Bld) [#/Vol]Ordere d By: Petra Goncalves on 09-20-2024 RBC (Bld) [#/Vol] 4.11 10*6/uL Low 4.2-5.4 [facility] Screening total cholesterol/ high density lipoprotein (HDL) cholesterol ratioOrdered By: Petra Goncalves on 09-20-2024 Cholesterol.total/Choles terol in HDL [Mass ratio] 3.33 {ratio} [facility] Serum or plasma cholesterol in HDL measurement (mass/volume)Ordered By: Petra Goncalves on 09-20-2024 Cholesterol in HDL [Mass/Vol] 62 mg/dL >40 [facility] Comment on above: National Cholesterol Education Program (NCEP) guidelines:<40 mg/dL: Low HDL-cholesterol (major risk factor for CHD)>= 60 mg/dL: High HDL-cholesterol (negative risk factor for CHD)HDL-cholesterol is affected by a number of factors, e.g. smoking, exercise, hormones, sex and age. Serum or plasma cholesterol measurement (mass/volume)Ordered By: Petra Goncalves on 09-20-2024 Cholesterol [Mass/Vol] 205 mg/dL High <201 [facility] Comment on above: Cholesterol level, D esirable <200 mg/dLBorderline high cholesterol 200-239 mg/dLHigh cholesterol >=240 mg/dLRecommendations of the NCEP Adult Treatment Panel for the following risk-cutoff thresholds for the [place] population. Syphilis Antibodieson 2024 Syphilis Abs Non-Reactive Normal Nonreactive [facility] Comment on above: Performed By: #### L 100.0100, BTS, L509.4006, L3890.6102, L500.4100, L3890.6006, L3890.6301, L509.8002 #### [facility] [address] [place], [place], [id number] Triglycerides measurementOrd ered By: Petra Goncalves on 09-20-2024 Triglyceride [Mass/Vol] 119 mg/dL <199 [facility] Comment on above: The drugs N-Acetylcy steine and Metamizole may falsely depress this assay. Normal range: <150 mg/dLBorderline High: 150-199 mg/dLHigh: 200-499 mg/dLVery High: >500 mg/dL Type AND Screenon 09-20-2024 Ab SCREEN GEL Negative Normal [facility] Comment on above: Order Comment: PN Performed By: #### L 100.0100, BTS, L509.4006, L3890.6102, L500.4100, L3890.6006, L3890.6301, L509.8002 #### [facility] [address] [place], [place], [id number] Urine cultureOrdered By: Yogi Goncalves on 09-20-2024 Bacteria identified Cx Nom (U) Culture exhibits no growth. [facility] White blood cell (WBC) count Ordered By: Petra Goncalves on 09-20-2024 WBC (Bld) [#/Vol] 10.3 10*3/uL 4.4-11.0 [facility] Cervical or vaginal specimen microscopic examination by liquid based cytology (reportOrdered By: Laisha Mccoy on 08-19-2023 Cytology report Cyto stain.thin prep Doc (Cvx/Vag) Comment . [facility] Comment on above: Criteria not met, HP V Genotype not performed.Performed at: - [address] [id number] Director: Patti Howell MD, Phone: [phone] at: = - [facility] [id number] Director: Patti Howell MD, Phone: [phone] Cervical or vagninal specime n microscopic examination by cytology stain (reported asOrdered By: Laisha Mccoy on 08-19-2023 Cytology report Cyto stain Doc (Cvx/Vag) Comment . [facility] Comment on above: The Pap smear is a s creening test designed to aid in thedetection of premalignant and malignant conditions of theuterine cervix. It is not a diagnostic procedure andshould not be used as the sole means of detecting cervicalcancer. Both false-positive and false-negative reports dooccur. Detection in cervical specim en of any of human papilloma virus (HPV) 16, 18, 31, 33,Ordered By: Laisha Mccoy on 08-19-2023 HPV 16+18+31+33+35+39+45+51+ 52+56+58+59+66+68 DNA Probe+sig amp Ql (Cvx) Negative Negative [facility] Comment on above: This nucleic acid am plification test detects fourteen high-risk HPV types (16,18,31,33,35,39,45,51,52,56,58,59,66,68)without differentiation. Laboratory - CytologyOrdered By: Laisha Mccoy on 08-19-2023 Line Lead Cyto stain Nom (Cvx/Vag) [ID] Comment . [facility] Comment on above: Neetu Barber, Cytot echnologist (ASCP) Laboratory - Miscellaneous t estsOrdered By: Laisha Mccoy on 08-19-2023 Service comment (Unsp spec) [Interp] . . [facility] Thin prep Papanicolaou smear with manual screeningOrdered By: Laisha Mccoy on 08-19-2023 Thin prep Papanicolaou smear with manual screening Comment . [facility] Comment on above: NEGATIVE FOR INTRAEP ITHELIAL LESION OR MALIGNANCY. This liquid based Th inPrep(R) pap test was screened withthe use of an image guided system. Absolute lymphocyte countOrd ered By: Renata Lundy on 10-08-2022 Lymphocytes Auto (Unsp spec) [#/Vol] 1.38 10*3/uL 0.83-4.51 [facility] Basophil percentageOrdered B y: Renata Lundy on 10-08-2022 Basophils/100 WBC (Bld) 1.0 % 0-1 [facility] Bilirubin [Mass/Vol] 0.40 mg/dL 0.20-1.00 [facility] Comment on above: For patients on eltr ombopag therapy, use of Dimension [place] TBIL is not recommended. Chloride [Moles/Vol] 106 mmol/L 98-107 [facility] Cholesterol [Mass/Vol] 188 mg/dL <200 [facility] Comment on above: <200 mg/dL Desirable 200-240 mg/dL Borderline >240 mg/dL High Risk Eosinophils/100 WBC (Bld) 0.8 % 0-5 [facility] Glucose [Mass/Vol] 82 mg/dL 74-106 [facility] Neutrophils (Bld) [#/Vol] 4.0 10*3/uL 2.0-7.7 [facility] Neutrophils/100 WBC (Bld) 67.1 % 47-70 [facility] Potassium [Moles/Vol] 4.2 mmol/L 3.5-5.1 [facility] Protein [Mass/Vol] 7.9 g/dL 6.4-8.2 [facility] Sodium [Moles/Vol] 138 mmol/L 136-145 [facility] Triglyceride [Mass/Vol] 100 mg/dL <199 [facility] Comment on above: The drugs N-Acetylcy steine and Metamizole may falsely depress this assay.Serum Triglycerides Reference Interval Normal <150 mg/dL Borderline high 150 - 199 mg/dL High 200 - 499 mg/dL Very High > or = 500 mg/dL WBC (Bld) [#/Vol] 6.0 10*3/uL 4.4-11.0 [facility] Blood erythrocytes count (nu mber/volume)Ordered By: Renata Lundy on 10-08-2022 RBC (Bld) [#/Vol] 4.15 10*6/uL 4.2-5.4 [facility] Blood hemoglobin measurement (mass/volume)Ordered By: Renata Lundy on 10-08-2022 Hemoglobin (Bld) [Mass/Vol] 12.7 g/dL 12.0-15.0 [facility] Blood lymphocytes/100 leukoc ytesOrdered By: Renata Lundy on 10-08-2022 Lymphocytes/100 WBC (Bld) 22.9 % 19-41 [facility] Blood monocytes/100 leukocyt esOrdered By: Renata Lundy on 10-08-2022 Monocytes/100 WBC (Bld) 8.0 % 0-10 [facility] Blood platelet mean volumeOr dered By: Renata Lundy on 10-08-2022 Platelet mean volume (Bld) [Entitic vol] 9.5 fL 6.2-12.0 [facility] Determination of erythrocyte mean corpuscular volume (MCV)Ordered By: Renata Lundy on 10-08-2022 MCV (RBC) [Entitic vol] 91.3 fL 81-99 [facility] Hematocrit Auto (Bld) [Volum e fraction]Ordered By: Renata Lundy on 10-08-2022 Hematocrit (Bld) [Volume fraction] 37.9 % 37-47 [facility] Laboratory - Chemistry and C hemistry - challengeOrdered By: Renata Lunyd on 10-08-2022 ALP [Catalytic activity/Vol] 61 U/L 45-117 [facility] ALT [Catalytic activity/Vol] 19 U/L 13-56 [facility] CO2 [Moles/Vol] 25.0 mmol/L 21.0-32.0 [facility] Globulin (S) [Mass/Vol] 3.8 g/dL 2.2-4.2 [facility] Urea nitrogen/Creatinine [Mass ratio] 14.6 mg/mg 10-20 [facility] Laboratory - Hematology and Cell countsOrdered By: Renata Lundy on 10-08-2022 Erythrocyte distribution width (RBC) [Entitic vol] 41.0 fL 35.1-43.9 [facility] Erythrocyte distribution width (RBC) [Ratio] 12.3 % 11.6-14.6 [facility] Immature granulocytes/100 WBC (Bld) 0.200 % 0.0-0.9 [facility] Comment on above: IG% - Immature Granu locytes (promyelocytes, myelocytes and metamyelocytes) > 1% indicates that a LEFT SHIFT is Present. MCH (RBC) [Entitic mass] 30.6 pg 27.0-32.0 [facility] Nucleated RBC/100 WBC (Bld) [Ratio] 0 % 0-5 [facility] MCHC Auto (RBC) [Mass/Vol]Or dered By: Renata Lundy on 10-08-2022 MCHC (RBC) [Mass/Vol] 33.5 g/dL 32-36 [facility] No Panel InformationOrdered By: Renata Lundy on 10-08-2022 Estimated GFR (MDRD) Amer 114 mL/min >60 [facility] Comment on above: GFR Calc Estimated GFR (MDRD) Non-Af Amer 95 mL/min >60 [facility] Comment on above: Non- GFR Calc Thyroid Stimulating Hormone (TSH) 1.43 uIU/mL 0.358-3.74 [facility] Platelets bldOrdered By: Vikash Lundy on 10-08-2022 Platelets (Bld) [#/Vol] 335 10*3/uL 150-450 [facility] Serum or plasma albumin edwina urement (mass/volume)Ordered By: Renata Lundy on 10-08-2022 Albumin [Mass/Vol] 4.1 g/dL 3.2-5.0 [facility] Serum or plasma albumin/glob ulin mass ratioOrdered By: Renata Lundy on 10-08-2022 Albumin/Globulin [Mass ratio] 1.1 {ratio} 0.9-2.4 [facility] Serum or plasma calcium edwina urement (mass/volume)Ordered By: Renata Lundy on 10-08-2022 Calcium [Mass/Vol] 8.9 mg/dL 8.5-10.1 [facility] Serum or plasma cholesterol in HDL measurement (mass/volume)Ordered By: Renata Lundy on 10-08-2022 Cholesterol in HDL [Mass/Vol] 52 mg/dL >40 [facility] Comment on above: The drugs N-Acetylcy steine and Metamizole may falsely depress this assay. Reference Range HDL <40 mg/dL Low HDL Cholesterol HDL >or= 60 mg/dL High HDL Cholesterol Serum or plasma cholesterol in VLDL measurement (mass/volume)Ordered By: Renata Lundy on 10-08-2022 Cholesterol in VLDL [Mass/Vol] 20 mg/dL 5-40 [facility] Serum or plasma creatinine m easurement (mass/volume)Ordered By: Renata Lundy on 10-08-2022 Creatinine [Mass/Vol] 0.75 mg/dL 0.55-1.02 [facility] Comment on above: The validity of the calculated GFR & GFRAA in patients over 70 years has not been determined. Clinical correlation is essential. Serum or plasma low density lipoprotein (LDL) cholesterol measurement (mass/volume)Ordered By: Renata Lundy on 10-08-2022 Cholesterol in LDL [Mass/Vol] 116 mg/dL 0-130 [facility] Serum or plasma urea nitroge n measurement (mass/volume)Ordered By: Renata Lundy on 10-08-2022 Urea nitrogen [Mass/Vol] 11 mg/dL 7-18 [facility] Thin prep Papanicolaou smear with manual screeningOrdered By: Renatadonato Lundy on 10-08-2022 Thin prep Papanicolaou smear with manual screening 16 U/L 15-37 [facility] Thin prep Papanicolaou smear with manual screening 7 5-15 [facility] Whole blood hemoglobin A1c/t otal hemoglobin ratio (mass fraction)Ordered By: Renata Lundy on 10-08-2022 HbA1c (Bld) [Mass fraction] 5.1 % 3.8-5.6 [facility] Comment on above: Normal < 5.7 % Predi abetic 5.7 - 6.4 % Diabetic >or= 6.5 % Please note range changes. No Panel Informationon 10-15 Miscellaneous Test See comment [facility] Work Phone: Comment on above: TEST RESULT LIMITSNu Swab Vaginitis Plus (VG+) Bacterial Vaginosis, KENYETTA Atopobium vaginae High - 2 Abnormal Score BVAB 2 High - 2 Abnormal Score Megasphaera 1 High - 2 Abnormal Score Total Score, add three scores Calculate total score by adding the 3 individual bacterial vaginosis (BV) marker scores together. Total score is interpreted as follows: Total score 0-1: Indicates the absence of BV. Total score 2: Indeterminate for BV. Additional clinical data should be evaluated to establish a diagnosis. Total score 3-6: Indicates the presence of BV. This test was developed and its performance characteristics determined by [employer]. It has not been cleared or approved by the Food and Drug Administration.Susie albicans, KENYETTA, Negative NegativeCandida glabrata, KENYETTA, Negative NegativeTrich vag by KENYETTA Negative NegativeChlamydia trachomatis, KENYETTA Negative NegativeNeisseria gonorrhoeae, KENYETTA Negative Negative ____ TESTING PERFORMED AT [facility]. ORIGINAL REPORT ON FILE IN LAB CONTAINS ADDITIONAL TEST SITE INFORMATION. Absolute lymphocyte counton 09-03-2021 Lymphocytes Auto (Unsp spec) [#/Vol] 1.48 10*3/uL 0.83-4.51 [facility] Work Phone: Basophil percentageon 2021 Basophils/100 WBC (Bld) 0.3 % 0-1 [facility] Work Phone: Eosinophils/100 WBC (Bld) 0.2 % 0-5 [facility] Work Phone: Neutrophils (Bld) [#/Vol] 8.5 10*3/uL 2.0-7.7 [facility] Work Phone: Neutrophils/100 WBC (Bld) 78.4 % 47-70 [facility] Work Phone: WBC (Bld) [#/Vol] 10.8 10*3/uL 4.4-11.0 [facility] Work Phone: Blood erythrocytes count (nu mber/volume)on 09-03-2021 RBC (Bld) [#/Vol] 3.80 10*6/uL 4.2-5.4 [facility] Work Phone: Blood hemoglobin measurement (mass/volume)on 09-03-2021 Hemoglobin (Bld) [Mass/Vol] 12.0 g/dL 12.0-15.0 [facility] Work Phone: Blood lymphocytes/100 leukoc yteson 09-03-2021 Lymphocytes/100 WBC (Bld) 13.7 % 19-41 [facility] Work Phone: Blood monocytes/100 leukocyt eson 09-03-2021 Monocytes/100 WBC (Bld) 6.8 % 0-10 [facility] Work Phone: Blood platelet mean volumeon 09-03-2021 Platelet mean volume (Bld) [Entitic vol] 10.2 fL 6.2-12.0 [facility] Work Phone: Determination of erythrocyte mean corpuscular volume (MCV)on 09-03-2021 MCV (RBC) [Entitic vol] 93.2 fL 81-99 [facility] Work Phone: [phone] Hematocrit Auto (Bld) [Volum e fraction]on 09-03-2021 Hematocrit (Bld) [Volume fraction] 35.4 % 37-47 [facility] Work Phone: Laboratory - Hematology and Cell countson 09-03-2021 Erythrocyte distribution width (RBC) [Entitic vol] 44.8 fL 35.1-43.9 [facility] Work Phone: [phone] Erythrocyte distribution width (RBC) [Ratio] 13.2 % 11.6-14.6 [facility] Work Phone: [phone] Immature granulocytes/100 WBC (Bld) 0.600 % 0.0-0.9 [facility] Work Phone: Comment on above: IG% - Immature Granu locytes (promyelocytes, myelocytes and metamyelocytes) > 1% indicates that a LEFT SHIFT is Present. MCH (RBC) [Entitic mass] 31.6 pg 27.0-32.0 [facility] Work Phone: [phone] Nucleated RBC/100 WBC (Bld) [Ratio] 0 % 0-5 [facility] Work Phone: [phone] MCHC Auto (RBC) [Mass/Vol]on 09-03-2021 MCHC (RBC) [Mass/Vol] 33.9 g/dL 32-36 [facility] Work Phone: No Panel Informationon 09-03 Vaginal Amniotic Fluid Detection Positive Negative [facility] Work Phone: Comment on above: Amniotic fluid prese nt indicates rupture of Membranes. RESULTS CALLED TO [facility] 09/03/21 2211 Izabela De Luna.REPORT READ BACK BY SAME . Platelets bldon 09-03-2021 Platelets (Bld) [#/Vol] 260 10*3/uL 150-450 [facility] Work Phone: No Panel Informationon 08-14 Group B Streptococcus Culture Group B Beta Streptococcus is not isolated. [facility] Work Phone: Laboratory - Microbiology an d Antimicrobial susceptibilityon 05-28-2021 SARS-CoV-2 (COVID-19) RNA KENYETTA+probe Ql (Unsp spec) Not detected Not Detect [facility] Work Phone: Comment on above: Normal Reference Ran ge: Not DetectedMethod:(RT-PCR) real-time reverse transcriptase PCRLuminex WESLY Instrument*The Food and Drug Administration (FDA) has issued an Emergency Use Authorization (EAU) for the WESLY SARS-CoV-2 Assay for the rapid detection of the virus that causes COVID-19. This test has been validated, but the FDAs independent review of this validation is pending.*Negative results do not preclude infection and should not be used as the sole basis for treatment or patient management. Optimum specimen types and timing for peak viral levels during infections caused by SARS-CoV-2 have not been determined. Collection of multiple specimens from the same patient may be necessary to detect the virus. The possibility of a false negative result should be considered if the patient has clinical presentation or has had recent exposure. Basophil percentageon 2021 WBC (Bld) [#/Vol] 10.5 10*3/uL 4.4-11.0 [facility] Work Phone: Blood erythrocytes count (nu mber/volume)on 05-21-2021 RBC (Bld) [#/Vol] 3.80 10*6/uL 4.2-5.4 [facility] Work Phone: Blood hemoglobin measurement (mass/volume)on 05-21-2021 Hemoglobin (Bld) [Mass/Vol] 11.7 g/dL 12.0-15.0 [facility] Work Phone: Blood platelet mean volumeon 05-21-2021 Platelet mean volume (Bld) [Entitic vol] 9.7 fL 6.2-12.0 [facility] Work Phone: Determination of erythrocyte mean corpuscular volume (MCV)on 05-21-2021 MCV (RBC) [Entitic vol] 94.7 fL 81-99 [facility] Work Phone: Gestational diabetes screen 1-hour screen with 50g oral glucose loadon 05-21-2021 Glucose 1 Hr post 50 g glucose PO [Mass/Vol] 100 mg/dL 70-140 [facility] Work Phone: Hematocrit Auto (Bld) [Volum e fraction]on 05-21-2021 Hematocrit (Bld) [Volume fraction] 36.0 % 37-47 [facility] Work Phone: Laboratory - Hematology and Cell countson 05-21-2021 Erythrocyte distribution width (RBC) [Entitic vol] 44.9 fL 35.1-43.9 [facility] Work Phone: [phone] Erythrocyte distribution width (RBC) [Ratio] 13.0 % 11.6-14.6 [facility] Work Phone: [phone] MCH (RBC) [Entitic mass] 30.8 pg 27.0-32.0 [facility] Work Phone: MCHC Auto (RBC) [Mass/Vol]on 05-21-2021 MCHC (RBC) [Mass/Vol] 32.5 g/dL 32-36 [facility] Work Phone: Platelets bldon 05-21-2021 Platelets (Bld) [#/Vol] 321 10*3/uL 150-450 [facility] Work Phone: HAND MIN 3 VIEWSon 0 HAND MIN 3 VIEWS Patient Name: GIULIA HOGUE STUDY: HAND MIN 3 VIEWS; Right; 01/01/2020 2:25 pm INDICATION: OPEN BITE OF RIGHT INDEX FINGER W/O DAMAGE TO NAIL, INIT OPEN BITE OF RIGHT MIDDLE FINGER W/O DAMAGE TO NAIL, INIT. COMPARISON: None. ACCESSION NUMBER(S): [id number] ORDERING CLINICIAN: MONIE CISNEROS FINDINGS: Right hand three views. Soft tissue swelling is noted surrounding the right 3rd phalanx. No fracture or dislocation is noted. No lytic lesion is seen. No radiopaque foreign body is noted IMPRESSION: Soft tissue swelling surrounding right 3rd phalanx. No additional visualized abnormality Electronically signed by: BARBARA GUZMAN MD [facility] Vital Signs Date Time Vital Sign Value Performing Clinician Tatiana raygoza 02-22-2025 09:01-0400 Body height 162.56 cm Jose Blanca MD Work Phone: [facility] 02-22-2025 09:01-0400 Body mass index (BMI) [Ratio] 30.6 kg/m2 Jose Blanca MD Work Phone: [facility] 02-22-2025 09:01-0400 Body weight 80.93 kg Jose Blanca MD Work Phone: [facility] 02-22-2025 09:01-0400 Diastolic blood pressure 74 mm[Hg] Jose Blanca MD Work Phone: [facility] 02-22-2025 09:01-0400 Systolic blood pressure 109 mm[Hg] Jose Blanca MD Work Phone: [facility] 02-05-2025 09:37-0400 Body height 162.56 cm Jose Blanca MD Work Phone: [facility] 02-05-2025 09:33-0400 Body mass index (BMI) [Ratio] 30.7 kg/m2 Jose Blanca MD Work Phone: [facility] 02-05-2025 09:33-0400 Body weight 81.3 kg Jose Blanca MD Work Phone: [facility] 02-05-2025 09:33-0400 Diastolic blood pressure 71 mm[Hg] Jose Blanca MD Work Phone: [facility] 02-05-2025 09:33-0400 Systolic blood pressure 112 mm[Hg] Jose Blanca MD Work Phone: [facility] 01-15-2025 09:15-0400 Body height 162.56 cm Jose Blanca MD Work Phone: [facility] 01-15-2025 09:15-0400 Body mass index (BMI) [Ratio] 30 kg/m2 Jose Blanca MD Work Phone: [facility] 01-15-2025 09:15-0400 Body weight 79.49 kg Jose Blanca MD Work Phone: [facility] 01-15-2025 09:15-0400 Diastolic blood pressure 73 mm[Hg] Jose Blanca MD Work Phone: [facility] 01-15-2025 09:15-0400 Systolic blood pressure 109 mm[Hg] Jose Blanca MD Work Phone: [facility] 12-18-2024 08:25-0400 Body height 162.56 cm Jose Blanca MD Work Phone: [facility] 12-18-2024 08:25-0400 Body mass index (BMI) [Ratio] 29.5 kg/m2 Jose Blanca MD Work Phone: [facility] 12-18-2024 08:25-0400 Body weight 78.18 kg Jose Blanca MD Work Phone: [facility] 12-18-2024 08:25-0400 Diastolic blood pressure 77 mm[Hg] Jose Blanca MD Work Phone: [facility] 12-18-2024 08:25-0400 Systolic blood pressure 112 mm[Hg] Jose Blanca MD Work Phone: [facility] 11-19-2024 15:18-0400 Body height 162.56 cm Jose Blanca MD Work Phone: [facility] 11-19-2024 15:18-0400 Body mass index (BMI) [Ratio] 29.2 kg/m2 Jose Blanca MD Work Phone: [facility] 11-19-2024 15:18-0400 Body weight 77.16 kg Jose Blanca MD Work Phone: [facility] 11-19-2024 15:18-0400 Diastolic blood pressure 78 mm[Hg] Jose Blanca MD Work Phone: [facility] 11-19-2024 15:18-0400 Systolic blood pressure 122 mm[Hg] Jose Blanca MD Work Phone: [facility] 10-23-2024 10:21-0400 Body height 162.56 cm Jose Blanca MD Work Phone: [facility] 10-23-2024 10:21-0400 Body mass index (BMI) [Ratio] 28.3 kg/m2 Jose Blanca MD Work Phone: [facility] 10-23-2024 10:21-0400 Body weight 74.89 kg Jose Blanca MD Work Phone: [facility] 10-23-2024 10:21-0400 Diastolic blood pressure 77 mm[Hg] Jose Blanca MD Work Phone: [facility] 10-23-2024 10:21-0400 Systolic blood pressure 119 mm[Hg] Jose Blanca MD Work Phone: [facility] 09-20-2024 12:59-0400 Body height 162.56 cm Jose Blanca MD Work Phone: [facility] 09-20-2024 12:59-0400 Body mass index (BMI) [Ratio] 27.6 kg/m2 Jose Blanca MD Work Phone: [facility] 09-20-2024 12:59-0400 Body weight 73.19 kg Jose Blanca MD Work Phone: [facility] 09-20-2024 12:59-0400 Diastolic blood pressure 81 mm[Hg] Jose Blanca MD Work Phone: [facility] 09-20-2024 12:59-0400 Systolic blood pressure 117 mm[Hg] Jose Blanca MD Work Phone: [facility] 08-19-2023 14:44-0400 Body height 162.56 cm DO Renatadonato Sotonger Work Phone: [facility] 08-19-2023 14:43-0400 Body mass index (BMI) [Ratio] 27.5 kg/m2 DO Renata Nikkie Work Phone: [facility] 08-19-2023 14:43-0400 Body weight 72.8 kg DO Renata Nikkie Work Phone: [facility] 08-19-2023 14:43-0400 Diastolic blood pressure 83 mm[Hg] DO Renatadonato Sotonger Work Phone: [facility] 08-19-2023 14:43-0400 Systolic blood pressure 121 mm[Hg] DO Renatadonato Sotonger Work Phone: [facility] 09-05-2021 14:00-0400 Body temperature 97.9 [degF] [facility] Work Phone: 09-05-2021 14:00-0400 Diastolic blood pressure 67 mm[Hg] [facility] Work Phone: 09-05-2021 14:00-0400 Heart rate 60 /min [facility] Work Phone: 09-05-2021 14:00-0400 Respiratory rate 16 /min [facility] Work Phone: 09-05-2021 14:00-0400 Systolic blood pressure 102 mm[Hg] [facility] Work Phone: 09-04-2021 15:56-0400 SaO2% (BldA) [Mass fraction] 96 % [facility] Work Phone: 09-03-2021 17:57-0400 Body height 162.56 cm [facility] Work Phone: 09-03-2021 17:57-0400 Body mass index (BMI) [Ratio] 32.1 kg/m2 [facility] Work Phone: 09-03-2021 17:57-0400 Body weight 84.82 kg [facility] Work Phone: Encounters Encounter Date Encounter Type Care Provider Facility Start: 03-19-2025 End: 03-19-2025 ambulatory Petra Sacha Facility:[facility] Start: 03-08-2025 End: 03-08-2025 ambulatory Petra Sacha Facility:[facility] Start: 02-22-2025 End: 02-22-[address] Pooja Diop MD -[facility] Work Phone: Start: 02-22-2025 End: 02-22-2025 ambulatory Jose Blanca MD Work Phone: -[facility] Start: 02-05-2025 End: 02-05-2025 Patient encounter procedure Alyse BARDALES -[facility] Work Phone: Start: 02-05-2025 End: 02-05-2025 ambulatory Jose Blanca MD Work Phone: -[facility] Start: 01-15-2025 End: 01-15-[address] Pooja Diop MD -[facility] Work Phone: Start: 01-15-2025 End: 01-15-2025 ambulatory Jose Blanca MD Work Phone: -[facility] Start: 01-15-2025 End: 01-15-2025 ambulatory Jose Blanca Facility:[facility] Start: 12-18-2024 End: 12-18-2024 Patient encounter procedure Alyse BARDALES -[facility] Work Phone: Start: 12-18-2024 End: 12-18-2024 ambulatory Jose Blanca MD Work Phone: -[facility] Start: 11-29-2024 End: 11-29-2024 ambulatory KALEIGH PERSAUD [facility] Start: 11-19-2024 End: 11-19-[address] Pooja Diop MD -[facility] Work Phone: Start: 11-19-2024 End: 11-19-2024 ambulatory Jose Blanca MD Work Phone: -[facility] Start: 10-23-2024 End: 10-23-[address] Kaleigh Milner DO -[facility] Work Phone: Start: 10-23-2024 End: 10-23-2024 ambulatory Jose Blanca MD Work Phone: [facility] Work Phone: Start: 09-20-2024 End: 09-20-2024 Patient encounter procedure Petra KIRBY -[facility] Work Phone: Start: 09-20-2024 End: 09-20-2024 ambulatory Jose Blanca MD Work Phone: [facility] Work Phone: Start: 09-20-2024 End: 09-20-2024 ambulatory Petra Goncalves Facility:[facility] Start: 08-19-2023 End: 08-19-2023 ambulatory DO Renata Lundy Work Phone: [facility] Work Phone: Start: 08-19-2023 End: 08-19-2023 Patient encounter procedure DO Renata Lundy Work Phone: [facility] Work Phone: Start: 08-19-2023 End: 08-19-2023 Patient encounter procedure DO Renata Lundy Work Phone: [facility] Work Phone: Start: 10-08-2022 End: 10-08-2022 ambulatory [facility] Work Phone: Start: 10-08-2022 End: 10-08-2022 Patient encounter procedure [facility], Clari Mims Start: 10-15-2021 End: 10-15-[address] Astrid Guerrero Work Phone: [facility], Specimen Start: 09-07-2021 End: 09-07-[address] Astrid Guerrero Work Phone: [facility] Start: 09-03-2021 End: 09-05-2021 Evaluation and management of inpatient [facility] Start: 08-14-2021 End: 08-14-2021 Patient encounter procedure [facility], Specimen Start: 05-28-2021 End: 05-28-2021 Patient encounter procedure [facility], Specimen Start: 05-21-2021 End: 05-21-2021 Patient encounter procedure [facility], [place] rn labor delivery Off Procedures Date Procedure Procedure Detail Performing Clinician Start: 01-15-2025 Serologic test for syphilis Jose Blanca MD Work Phone: Start: 09-20-2024 Urine culture Jose germain MD Work Phone: Start: 09-20-2024 Hepatitis C antibody measurement Jose Blanca MD Work Phone: Comment on above: Reactive: Presumptiv e evidence of antibodies to HCV. Follow CDC recommendations for supplemental testing.Non-Reactive: Antibodies to HCV were not detected; does not exclude the possibility of exposure to HCVReactive Results are presumptive evidence of antibodies to HCV. Follow CDC recommendations for supplemental testing.Order confirmation testing: HCV Quant by PCR testing - HCVPCR #[id number] Non Reactive: < 0.8 Equivocal: >/= 0.8 to < 1.0 Reactive: >/= 1.0The CDC requires that a reactive/equivocal HCV antibody result be sent out for confirmation. HCV Quant by PCR testing. Start: 09-20-2024 Rubella IgG measurement Jose Blanca MD Work Phone: Comment on above: Antibody Result: Int erpretationNon-Reactive: Non- ImmuneReactive: ImmuneThe following results were obtained with the [employer] Rubella IgG assay. Results from assays of other manufacturers cannot be used interchangeably. Start: 09-20-2024 Serologic test for syphilis Jose Blanca MD Work Phone: Start: 09-03-2021 End: 09-03-2021 Viral antigen assay Start: 08-14-2021 Group B Streptococcu s Culture Plan of Treatment Date Care Activity Detail Author Start: 02-05-2025 End: 02-05-2025 Patient encounter procedure -[facility] Work Phone: Start: 01-15-2025 CBC W Auto Different ial panel - Blood [facility] Start: 01-15-2025 Measurement of gluco se 2 hours after glucose challenge for glucose tolerance test [facility] Start: 01-15-2025 Serologic test for syphilis [facility] Start: 01-15-2025 [facility] Start: 09-20-2024 CBC W Auto Different ial panel - Blood [facility] Start: 09-20-2024 Hepatitis C antibody measurement [facility] Start: 09-20-2024 Lipid 1996 panel - S delfino or Plasma [facility] Start: 09-20-2024 Rubella IgG measurement [facility] Start: 09-20-2024 Serologic test for syphilis [facility] Start: 09-20-2024 [facility] CBC W Auto Different ial panel - Blood [facility] Chlamydia deoxyribon ucleic acid detection [facility] Cholesterol [Mass/vo lume] in Serum or Plasma [facility] Cholesterol in HDL [ Mass/volume] in Serum or Plasma [facility] Erythrocyte mean cor puscular volume determination [facility] Erythrocyte mean cor puscular volume determination [facility] Hematocrit [Volume F raction] of Blood [facility] Hematocrit [Volume F raction] of Blood [facility] Hemoglobin [Mass/vol ume] in Blood [facility] Hemoglobin [Mass/vol ume] in Blood [facility] Hepatitis B virus isabel rface Ag [Presence] in Serum [facility] Leukocytes [#/volume] in Blood [facility] Leukocytes [#/volume] in Blood [facility] Low density lipoprot ein cholesterol measurement [facility] Mean corpuscular hem oglobin concentration determination [facility] Mean corpuscular hem oglobin concentration determination [facility] Mean corpuscular hem oglobin determination [facility] Mean corpuscular hem oglobin determination [facility] Measurement of gluco se 2 hours after glucose challenge for glucose tolerance test [facility] Neutrophil count [facility] Neutrophil count [facility] Neutrophil percent d ifferential count [facility] Neutrophil percent d ifferential count [facility] Patient referral [facility] Work Phone: Platelets [#/volume] in Blood [facility] Platelets [#/volume] in Blood [facility] Red blood cell count [facility] Red blood cell count [facility] Red cell distributio n width determination [facility] Red cell distributio n width determination [facility] Serologic test for syphilis [facility] Total cholesterol:HD L ratio measurement [facility] Triglycerides measurement [facility] VLDL cholesterol measurement [facility] Immunizations Immunization Date Immunization Notes Care Provider Fa [facility] 02-05-2025 tetanus toxoid, redu [place] diphtheria toxoid, and acellular pertussis vaccine, adsorbed Jose Blanca MD Work Phone: [facility] 09-14-2018 tetanus toxoid, redu chelsea diphtheria toxoid, and acellular pertussis vaccine, adsorbed [facility] Payers Date Payer Category Payer Self-pay [id number] 2024 Private Health Insurance [id number] 1990 Unknown [id number] Private Health Insurance [id number] Unknown [id number] Unknown [id number] Unknown [facility] [id number] Unknown [id number] Unknown [id number] Unknown [id number] Unknown [id number] Unknown [id number] Unknown [id number] Unknown [id number] Unknown [id number] Unknown [id number] Unknown [id number] Unknown [id number] Social History Date Type Detail Facility Start: 12-18-2020 End: 08-19-2023 Tobacco smoking status IDIS Unknown if ever smoked [facility] Start: 1990 Sex Assigned At Female [facility] Start: 08-31-2024 Tobacco smoking stat us IDIS Never smoked tobacco (finding) [facility] Sex Female [facility] Clinical Notes 08-19-2023 to 02-22-2025 Note Date & Type Note Facility 02-22-2025 Progress note [facility] 02-05-2025 Progress note [facility] 11-19-2024 Evaluation note Diagnosis Onset Date Resolution acute November 19 3:15pm Supervision of normal acute November 19, 2024 3:15pm Seasonal allergies resolved November 062024 3:15pm acute December 18, 025 8:23am Supervision of normal acute December 18 8:23am Seasonal allergies resolved December 18, 2024 8:23am acute January 15, 2025 9:09am Supervision of normal acute January 15 025 9:09am acute January 9:29am Supervision of normal acute February 05, 2025 9:29am acute February 22, 2025 8:49am Supervision of normal acute February 22 8:49am [facility] Work Phone: [phone]) 578-291507-14-2025 Progress [facility] [address] [place] [address], [address] [place] [address] OFFICE VISIT Date of Service: 11/19/24 MR#: [id number] Acct: [id number] Name: GIULIA HOGUE Rep #: [id number] : 1990 Provider: Dr. aJdiel Diop MD Age/Sex: 34/F Location: [facility] Status: Signed Intake Vital Signs 09/20/24 12:59 10/23/24 10:21 11/19/24 15:18 Height 5 ft 4 in 5 ft 4 in 5 ft 4 in Weight: 170 lb 2 oz BMI 29.2 BP 122/78 H Intake Visit Reasons: 18 wk ob Bunker Worker Required: No Is patient in pain?: No Allergies No Known Allergies Allergy (Verified 11/19/24 15:18) Medications ?Medication ?Instructions ?Recorded ?Confirmed ?Type fluticasone propionate 50 1 spray intranasal PRN PRN 0 09/03/21 11/19/24 History mcg/actuation nasal allergies spray,suspension (Flonase Allergy Relief) cetirizine 10 mg capsule (Zyrtec) 10 mg PO QDAY PRN 11/19/24 History multivit-min no.71-iron fum 28 cap PO 08/31/24 5 History mg-folate no.1 1 mg-dha 300 mg capsule (PNV-Thornton) Last Menstrual Period: 07/15/24 Zika: Zika virus screening: Negative : No PFSH PFSH Medical History URI (upper respiratory infection) Lab test negative for COVID-19 virus Seasonal allergies Surgical History History of wisdom tooth extraction Family History Father Heart disease Mother Diabetes Other Hypertension Social History adopted: No household members: spouse and children housing: house number of children: 2 current occupational status: employed 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 current occupational exposures/hazards: No pets and animals: Yes pets and animals: dog(s) history of recent travel: No sexually active: Yes Smoking Status: Never smoker alcohol intake: current details: socially- not while substance use type: does not use well-balanced diet: daily or most days caffeine: Yes Type: coffee Number of servings: 1 eating out: 1-3 times/week during the past year weight has: remained stable what type of physical activity do you participate in: none angel/gnosticist: Scientology seatbelt use: always do you feel safe at home: Yes additional social history: Spouse - Jan Hansen and tamar children History 3 Elective abortions Hx Para 2 Spontaneous abortions Hx # Term Pregnancies Ectopic pregnancies Hx # Pregnancies Multiple births # of living children 2 Past Pregnancies Del. Date Name GA/Weeks Outcome Route Bth Weight Gen Labor Lgth Anesthesia Del Locatn Provider FOB 01/05/19 Waqas 41 live - full term 7#13oz Male epi dural [facility] Kate Hansen 09/04/21 Tamar 39 live - full term 8# Female epid ural [facility] Cooper Hansen Delivery Date: 01/05/19 Last Updated by: Courtney Lovett pitocin used after labor started HPI 18 wk ob Details: GIULIA HOGUE is a 34 year old who presents for routine OB visit. OB Visit DONNY Calculator Estimated Delivery Date Method Current WG Current Estimate 04/21/25 LMP (Certain) 18w 1d Other Estimates 04/21/25 Ultrasound #1 18w 1d Expected Delivery Route/Plan Labor Preferences- CB/BF classes: [] labor support person: [] labor intervention preferences: [] pain management options preferred: [] cut cord/dad catch: [] : [] PP control planned: [] discussed possible routes of delivery and associated risks: [] special requests: [] Specific Issue/Plans Covid status: [] Flu vaccine: [] Tdap vaccine: [] Rhogam: [] LARC form signed: [] Problem list reviewed and updated with the most current plan of care details and appropriate ordersplaced. Relevant counseling for the gestational age provided. Continue routine care and follow up unless otherwise noted in visit notes/problem list details Initial Weight: 161 lb Date -?-?-?-?-?-?-?-?-?-?-?-?- EGA Weight BP Urine Prot -?-?-?-?-?-?-?-?-?-?-?-?- Glucose FHR FuHt Pres Dilation -?-?-?-?-?-?-?-?-?-?-?-?- Effaced St Visit Note 09/20/24 -?-?-?-?-?--?-?-?-?-?-?-?- 9w 4d 161 lb 6 oz (+6 oz) 117/81 -?-?-?-?-?-?-?-?-?-?-?-?- 188 -?-?-?-?-?-?-?-?-?-?-?-?- KW- CRL cons wit h dates. declines NIPT 10/23/24 -?-?-?-?-?-?-?-?-?-?-?-?- 14w 2d 165 lb 2 oz (+4 lb 2 oz) 119/77 Negative -?-?-?-?-?-?-?-?-?-?-?-?- Negative 145 -?-?-?-?-?-?-?-?-?-?-?-?- JV- no complaint s today. needs insurance info filed out. declines NIPT. 11/19/24 -?-?-?-?-?-?-?-?-?-?-?-?- 18w 1d 170 lb 2 oz (+9 lb 2 oz) 122/78 Negative -?-?-?-?-?-?-?-?-?-?-?-?- Negative 150 -?-?-?-?-?-?-?-?-?-?-?-?- SM- no vb crampi ng doing well ACOG First Trimester First Trimester: Desire for , Alcohol, Tobacco Cessation, Illicit/Recreational Drug/Substance Use, Intimate Partner Violence, Barriers to care, Unstable Housing, Communication Barriers, Environmental/Work Hazards, Anticipated Course of Care, Toxoplasmosis Precations, Use of Any med ications, Sexual activity, Exercise, Dental Care, Sauna/Hot tub use, Seat Belt use, Childbirth classes/Hospital facilities, Travel, Indications for Ultrasound and Screening for Aneuploidy; Discussed Second Trimester Second Trimester: Signs and Symptoms of Labor, Selecting a care provider, Reproductive Life Planning & Contreception, Care Planning, Depression/Anxiety and Intimate Partner Violence; Discussed Tobacco Cessation Third Trimester Third Trimester: Pain Management Plans, Labor support person(s), Immediate Larc, Signs and Symptoms of Preeclampsia, Feeding No , Education and Family Medical Leave or Disability Forms Results POC Urinalysis 2 Dip (Clinic) Office Urine Glucose Negative Last Edit by Alyse Brown on 11/19/24 15:23 Office Urine Protein Negative Last Edit by Alyse Brown on 11/19/24 15:23 Coding Level of Care Code OB Routine Diagnoses 18 weeks gestation of Z3A.18 Weeks of gestation: 18 weeks Seasonal allergies J30.2 Supervision of normal Z34.90 Assessment and Plan Assessment and Plan (1) : Status: Acute Qualifiers: Weeks of gestation: 18 weeks Qualified Code(s): Z3A.18 - 18 weeks gestation of Comment: declined NIPT & Carrier testing (2) Seasonal allergies: Status: Acute (3) Supervision of normal : Status: Acute Comment: PRR, , DONNY 04/21/25, PC Waqas, Tamar Tyrone Orders: Orders POC Urinalysis 2 Dip (Clinic) Today 11/19/24 1545 hai SAMSON> Date _ Pooja Diop MD Cosigner Signature: Date (if applicable) CC: ~ [facility]07-14-2025 Progress note Author Pooja Diop [facility] Note Date/Time November 19, 2024 3:45 pm [facility] [address], [address] [place] [address] OFFICE VISIT Date of Service: 11/19/24 MR#: [id number] Acct: [id number] Name: GIULIA HOGUE Rep #: [id number] : 1990 Provider: Dr. Jadiel Diop MD Age/Sex: 34/F Location: [facility] Status: Signed Intake Vital Signs 09/20/24 12:59 10/23/24 10:21 11/19/24 15:18 Height 5 ft 4 in 5 ft 4 in 5 ft 4 in Weight: 170 lb 2 oz BMI 29.2 BP 122/78 H Intake Visit Reasons: 18 wk ob Bunker Worker Required: No Is patient in pain?: No Allergies No Known Allergies Allergy (Verified 11/19/24 15:18) Medications ?Medication ?Instructions ?Recorded ?Confirmed ?Type fluticasone propionate 50 1 spray intranasal PRN PRN 0 09/03/21 11/19/24 History mcg/actuation nasal allergies spray,suspension (Flonase Allergy Relief) cetirizine 10 mg capsule (Zyrtec) 10 mg PO QDAY PRN 11/19/24 History multivit-min no.71-iron fum 28 cap PO 08/31/24 5 History mg-folate no.1 1 mg-dha 300 mg capsule (PNV-Thornton) Last Menstrual Period: 07/15/24 Zika: Zika virus screening: Negative : No PFSH PFSH Medical History URI (upper respiratory infection) Lab test negative for COVID-19 virus Seasonal allergies Surgical History History of wisdom tooth extraction Family History Father Heart disease Mother Diabetes Other Hypertension Social History adopted: No household members: spouse and children housing: house number of children: 2 current occupational status: employed 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 current occupational exposures/hazards: No pets and animals: Yes pets and animals: dog(s) history of recent travel: No sexually active: Yes Smoking Status: Never smoker alcohol intake: current details: socially- not while substance use type: does not use well-balanced diet: daily or most days caffeine: Yes Type: coffee Number of servings: 1 eating out: 1-3 times/week during the past year weight has: remained stable what type of physical activity do you participate in: none angel/gnosticist: Scientology seatbelt use: always do you feel safe at home: Yes additional social history: Spouse - Tyrone, Jan and tamar children History 3 Elective abortions Hx Para 2 Spontaneous abortions Hx # Term Pregnancies Ectopic pregnancies Hx # Pregnancies Multiple births # of living children 2 Past Pregnancies Del. Date Name GA/Weeks Outcome Route Bth Weight Infant Gen Labor Lgth Anesthesia Del Locatn Provider FOB 01/05/19 Waqas 41 live - full term 7#13oz Male epi dural [facility] Kate Hansen 09/04/21 Tamar 39 live - full term 8# Female epid ural [facility] Cooper Lieberman Tyrone Delivery Date: 01/05/19 Last Updated by: Courtney Lovett pitocin used after labor started HPI 18 wk ob Details: GIULIA HOGUE is a 34 year old who presents for routine OB visit. OB Visit DONNY Calculator Estimated Delivery Date Method Current WG Current Estimate 04/21/25 LMP (Certain) 18w 1d Other Estimates 04/21/25 Ultrasound #1 18w 1d Expected Delivery Route/Plan Labor Preferences- CB/BF classes: [] labor support person: [] labor intervention preferences: [] pain management options preferred: [] cut cord/dad catch: [] : [] PP control planned: [] discussed possible routes of delivery and associated risks: [] special requests: [] Specific Issue/Plans Covid status: [] Flu vaccine: [] Tdap vaccine: [] Rhogam: [] LARC form signed: [] Problem list reviewed and updated with the most current plan of care details and appropriate orders placed. Relevant counseling for the gestational age provided. Continue routine care and follow up unless otherwise noted in visit notes/problem list details Initial Weight: 161 lb Date -?-?-?-?-?-?-?-?-?-?-?-?- EGA Weight BP Urine Prot -?-?-?-?-?-?-?-?-?-?-?-?- Glucose FHR FuHt Pres Dilation -?-?-?-?-?-?-?-?-?-?-?-?- Effaced St Visit Note 09/20/24 -?-?-?-?-?--?-?-?-?-?-?-?- 9w 4d 161 lb 6 oz (+6 oz) 117/81 -?-?-?-?-?-?-?-?-?-?-?-?- 188 -?-?-?-?-?-?-?-?-?-?-?-?- KW- CRL cons wit h dates. declines NIPT 10/23/24 -?-?-?-?-?-?-?-?-?-?-?-?- 14w 2d 165 lb 2 oz (+4 lb 2 oz) 119/77 Negative -?-?-?-?-?-?-?-?-?-?-?-?- Negative 145 -?-?-?-?-?-?-?-?-?-?-?-?- JV- no complaint s today. needs insurance info filed out. declines NIPT. 11/19/24 -?-?-?-?-?-?-?-?-?-?-?-?- 18w 1d 170 lb 2 oz (+9 lb 2 oz) 122/78 Negative -?-?-?-?-?-?-?-?-?-?-?-?- Negative 150 -?-?-?-?-?-?-?-?-?-?-?-?- SM- no vb crampi ng doing well ACOG First Trimester First Trimester: Desire for , Alcohol, Tobacco Cessation, Illicit/Recreational Drug/Substance Use, Intimate Partner Violence, Barriers to care, Unstable Housing, Communication Barriers, Environmental/Work Hazards, Anticipated Course of Care, Toxoplasmosis Precations, Use of Any medications, Sexual activity, Exercise, Dental Care, Sauna/Hot tub use, Seat Belt use, Childbirth classes/Hospital facilities, Travel, Indications for Ultrasound and Screening for Aneuploidy; Discussed Second Trimester Second Trimester: Signs and Symptoms of Labor, Selecting a care provider, Reproductive Life Planning & Contreception, Care Planning, Depression/Anxiety and Intimate Partner Violence; Discussed Tobacco Cessation Third Trimester Third Trimester: Pain Management Plans, Labor support person(s), Immediate Larc, Signs and Symptoms of Preeclampsia, Feeding No , Education and Family Medical Leave or Disability Forms Results POC Urinalysis 2 Dip (Clinic) Office Urine Glucose Negative Last Edit by Alyse Brown on 11/19/24 15:23 Office Urine Protein Negative Last Edit by Alyse Brown on 11/19/24 15:23 Coding Level of Care Code OB Routine Diagnoses 18 weeks gestation of Z3A.18 Weeks of gestation: 18 weeks Seasonal allergies J30.2 Supervision of normal Z34.90 Assessment and Plan Assessment and Plan (1) : Status: Acute Qualifiers: Weeks of gestation: 18 weeks Qualified Code(s): Z3A.18 - 18 weeks gestation of Comment: declined NIPT & Carrier testing (2) Seasonal allergies: Status: Acute (3) Supervision of normal : Status: Acute Comment: PRR, , DONNY 04/21/25, Tamar Zheng Tyrone Orders: Orders POC Urinalysis 2 Dip (Clinic) Today 11/19/24 1545 <Electronically signed by Pooja valles MD> Date _ Pooja Diop MD Cosigner Signature: Date (if applicable) CC: ~ [facility] Work Phone: 1(239) 223-190406-17-2025 Evaluation note* Diagnosis Onset Date Resolution Status Admit Date acute October 23 10:14am Supervision of normal acute October 23, 2024 10:14am Seasonal allergies resolved October 072024 10:14am acute November 19 3:15pm Supervision of normal acute November 19, 2024 3:15pm Seasonal allergies resolved November 062024 3:15pm acute December 18, 2 025 8:23am Supervision of normal acute December 18 8:23am Seasonal allergies resolved December 18, 2024 8:23am acute January 15, 2025 9:09am Supervision of normal acute January 15, 025 9:09am acute January 9:29am Supervision of normal acute February 05, 2025 9:29am [facility] Work Phone: 1([phone]) 791-888005-15-2025 Evaluation note* Diagnosis Onset Date Resolution Status Admit Date acute September 20, 2024 12:56pm Seasonal allergies acute September 202024 12:56pm Supervision of normal acut e September 20, 2024 12:56pm [facility] Work Phone: 1(451) 977-519605-15-2025 Evaluation note* Diagnosis Onset Date Resolution Status Admit Date acute September 20, 2024 12:56pm Seasonal allergies acute September 202024 12:56pm Supervision of normal acut e September 20, 2024 12:56pm acute October 23 10:14am Seasonal allergies acute October 072024 10:14am Supervision of normal acut e October 23, 2024 10:14am [facility] Work Phone: 1([phone]) 690-833605-15-2025 Evaluation note* Diagnosis Onset Date Resolution Status Admit Date acute September 20, 2024 12:56pm Seasonal allergies acute September 202024 12:56pm Supervision of normal acut e September 20, 2024 12:56pm acute October 23 10:14am Seasonal allergies acute October 072024 10:14am Supervision of normal acut e October 23, 2024 10:14am acute November 19 3:15pm Seasonal allergies acute November 062024 3:15pm Supervision of normal acut e November 19, 2024 3:15pm [facility] Work Phone: 1(208) 476-636705-15-2025 Evaluation note* Diagnosis Onset Date Resolution Status Admit Date acute September 20, 2024 12:56pm Seasonal allergies acute September 202024 12:56pm Supervision of normal acut e September 20, 2024 12:56pm acute October 23 10:14am Seasonal allergies acute October 072024 10:14am Supervision of normal acut e October 23, 2024 10:14am acute November 19 3:15pm Seasonal allergies acute November 062024 3:15pm Supervision of normal acut e November 19, 2024 3:15pm acute December 18, 8:23am Seasonal allergies acute December 18, 2024 8:23am Supervision of normal acut e December 18, 2024 8:23am [facility] Work Phone: 1(183) 363-267705-15-2025 Evaluation note* Diagnosis Onset Date Resolution Status Admit Date acute September 20, 2024 12:56pm Supervision of normal acute September 20, 2024 1 2:56pm Seasonal allergies resolved September 202024 12:56pm acute October 23 10:14am Supervision of normal acute October 23, 2024 10:14am Seasonal allergies resolved October 072024 10:14am acute November 19 3:15pm Supervision of normal acute November 19, 2024 3:15pm Seasonal allergies resolved November 062024 3:15pm acute December 18, 025 8:23am Supervision of normal acute December 18 8:23am Seasonal allergies resolved December 18, 2024 8:23am acute January 15, 2025 9:09am Supervision of normal acute January 15, 025 9:09am [facility] Work Phone: 1(493) 670-432805-15-2025 [facility] [address] [place] [address], [address] [place] [address] OFFICE VISIT Date of Service: 09/20/24 MR#: [id number] Acct: [id number] Name: GIULIA HOGUE Rep #: [id number] : 1990 Provider: BEATRIS Goncalves Age/Sex: 34/F Location: [facility] Status: Signed Intake Vital Signs 08/19/23 14:44 09/20/24 12:59 Height 5 ft 4 in 5 ft 4 in Weight: 161 lb 6 oz BMI 27.6 BP 117/81 H Intake Visit Reasons: New OB, LMP 07/15, DONNY 04/21 Chief Complaint: New OB Bunker Worker Required: No Is patient in pain?: No Allergies No Known Allergies Allergy (Verified 09/20/24 12:57) Medications ?Medication ?Instructions ?Recorded ?Confirmed ?Type fluticasone propionate 50 1 spray intranasal PRN PRN 0 09/03/21 09/20/24 History mcg/actuation nasal allergies spray,suspension (Flonase Allergy Relief) cetirizine 10 mg capsule (Zyrtec) 10 mg PO QDAY PRN 09/20/24 History multivit-min no.71-iron fum 28 cap PO 08/31/24 5 History mg-folate no.1 1 mg-dha 300 mg capsule (PNV-Thornton) Last Menstrual Period: 07/15/24 : Yes PFSH PFSH Medical History URI (upper respiratory infection) Lab test negative for COVID-19 virus Seasonal allergies Surgical History History of wisdom tooth extraction Family History Father Heart disease Mother Diabetes Other Hypertension Social History adopted: No household members: spouse and children housing: house number of children: 2 service: No current occupational status: employed 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 current occupational exposures/hazards: No pets and animals: Yes pets and animals: dog(s) history of recent travel: No sexually active: Yes Smoking Status: Never smoker alcohol intake: current details: socially- not while substance use type: does not use well-balanced diet: daily or most days caffeine: Yes Type: coffee Number of servings: 1 eating out: 1-3 times/week during the past year weight has: remained stable what type of physical activity do you participate in: none angel/gnosticist: Scientology seatbelt use: always do you feel safe at home: Yes additional social history: Spouse - Tyrone, Jan and tamar children History 3 Elective abortions Hx Para 2 Spontaneous abortions Hx # Term Pregnancies Ectopic pregnancies Hx # Pregnancies Multiple births # of living children 2 Past Pregnancies Del. Date Name GA/Weeks Outcome Route Bth Weight Infant Gen Labor Lgth Anesthesia Del Locatn Provider FOB 01/05/19 Waqas 41 live - full term 7#13oz Male epi dural [facility] Kate Hansen 09/04/21 Tamar 39 live - full term 8# Female epid ural [facility] Cooper Hansen Delivery Date: 01/05/19 Last Updated by: Courtney Lovett pitocin used after labor started HPI New OB, LMP 07/15, DONNY 04/21 Details: GIULIA HOGUE is a 34 year old who presents for New OB visit. OB Visit DONNY Calculator Estimated Delivery Date Method Current WG Current Estimate 04/21/25 LMP (Certain) 9w 4d Other Estimates 04/21/25 Ultrasound #1 9w 4d Comments: HIV: Urine Culture: Sequential Screen: NIPT Screen: Estimated Due Date: 04/21/25 Expected Delivery Route/Plan Labor Preferences- CB/BF classes: [] labor support person: [] labor intervention preferences: [] pain management options preferred: [] cut cord/dad catch: [] : [] PP control planned: [] discussed possible routes of delivery and associated risks: [] special requests: [] Specific Issue/Plans Covid status: [] Flu vaccine: [] Tdap vaccine: [] Rhogam: [] LARC form signed: [] Problem list reviewed and updated with the most current plan of care details and appropriate ordersplaced. Relevant counseling for the gestational age provided. Continue routine care and follow up unless otherwise noted in visit notes/problem list details Initial Weight: 161 lb Date -?-?-?-?-?-?-?-?-?-?-?-?- EGA Weight BP Urine Prot -?-?-?-?-?-?-?-?-?-?-?-?- Glucose FHR FuHt Pres Dilation -?-?-?-?-?-?-?-?-?-?-?-?- Effaced St Visit Note 09/20/24 -?-?-?-?-?-?-?-?-?-?-?-?- 9w 4d 161 lb 6 oz (+6 oz) 117/81 -?-?-?-?-?-?-?-?-?-?-?-?- 188 -?-?-?-?-?-?-?-?-?-?-?-?- KW- CRL cons wit h dates. declines NIPT Menstrual History Last Menstrual Period: 07/15/24 Reported LMP: definite Normal amount/duration: Yes Frequency in days: 28 On hormonal BC at conception: No hCG+: 08/19/24 Antepartum Record Genetic Screening: Congenital Heart Defect: Other, Neural Tube Defect: Other, Hemoglobinopathy Or Carrier: Other, Cystic Fibrosis: Other, Chromosome Abnormality: Other, Michi-Sachs: Other, Hemophilia: Other, Intellectual Disability/Autism: Other, Recurrent Loss/Stillbirth: Other, Other Structural Defect: Other, Other Genetic Disease: Other and Maternal Metabolic Disorder: Other Infection History: Live with someone with TB or Exposed to TB: No, Patient or Partner has history of Genital Herpes: No, Rash or Viral illness since last mentrual period: Yes (common cold- 08/07/24), Prior GBS-Infected child: No, History of STD: No, HIV Infection: No, History of Hepatitis: No, Recenttravel outside of [place]: No, Concern for hepatitis exposure: No, Varicella immune: Yes (immune- vaccinated) and Covid Vaccinated: Yes (Pfizer, No Booster) Medical History Medical History: Positive: Seasonal allergies, Operations/hospitalizations (wisdom teeth) and Uterine anomaly/alonzo (per pt Maybe misshaped(Had 2 vaginal deliveries)) and Negative: Diabetes, Hypertension, Heart disease, Auto-immune disorder, Kidney disease/UTI, Neurologic/epilepsy, Psychiatric, Depr ession/ depression, Hepatitis/liver disease, Varicosities/phlebitis, Thyroid dysfunction,Trauma/domestic violence, History of blood transfusions, D (Rh) Sensitized, Pulmonary (e.g.,TB,Asthma), Drug/latex allergies/reactions, Breast, Hired Hand surgery, Anesthetic complications, History of abnormal pap, Infertility, Anti-retroviral treatment, Relevant family history (No additions- see PFS) and Other ACOG First Trimester First Trimester: Nurtrition and weight gain and Second Trimester Second Trimester: Signs and Symptoms of Labor, Selecting a care provider, Reproductive Life Planning & Contreception, Care Planning, Depression/Anxiety and Intimate Partner Violence; Discussed Tobacco Cessation Third Trimester Third Trimester: Pain Management Plans, Labor support person(s), Immediate Larc, Signs and Symptoms of Preeclampsia, Infant Feeding Yes , [place] Education and Family Medical Leave or Disability Forms ROS Const Reports system reviewed and no additional complaints, except as documented, Denies fatigue, Denies headache(s) and Denies lethargy ENT Denies headache(s) Card Reports system reviewed and no additional complaints, except as documented Resp Reports system reviewed and no additional complaints, except as documented GI Reports system reviewed and no additional complaints, except as documented, Denies abdominal pain, Denies constipation, Denies cramping, Denies diarrhea and Denies dyspepsia Reports system reviewed and no additional complaints, except as documented, Denies abnormal vaginalbleeding, Denies difficulty voiding, Denies dyspareunia and Denies dysuria Musc Reports system reviewed and no additional complaints, except as documented Skin/Breast Reports system reviewed and no additional complaints, except as documented Neuro Yes system reviewed and no additional complaints, except as documented and No headache(s) Psych Reports system reviewed and no additional complaints, except as documented, Denies anhedonia and Denies anxiety Endo Reports system reviewed and no additional complaints, except as documented and Denies fatigue Exam Const General: cooperative, healthy appearing and comfortable Neck Neck: normal visual inspection and full ROM Chest Chest palpation & inspection: normal inspection of the chest Breast inspection: normal inspection of the breasts and normal inspection of the axillae Breast palpation: normal palpation of the breasts and normal palpation of the axillae Resp Effort & Inspection: normal respiratory effort and able to speak in complete sentences GI Inspection: normal to inspection Palpation: soft External Female Exam: normal external appearance and normal appearance of the urethra Urethra: normal appearance of the urethra Skin General: no rashes or lesions noted Neuro General: patient alert, patient awake and patient oriented x3 Extrem General: normal to inspection and full ROM Psych Appearance: grossly normal and well kempt Mental Status: mental status grossly normal Mood: congruent mood Affect: normal affect Speech and Movement: speech and movement normal Thought Process: normal Thought Content: normal Coding Level of Care Code OB Routine Diagnoses 9 weeks gestation of Z3A.09 Weeks of gestation: 9 weeks Seasonal allergies J30.2 Supervision of normal Z34 Assessment and Plan Assessment and Plan (1) : Status: Acute Qualifiers: Weeks of gestation: 9 weeks Qualified Code(s): Z3A.09 - 9 weeks gestation of Comment: declined NIPT & Carrier testing (2) Seasonal allergies: Status: Acute (3) Supervision of normal : Status: Acute Comment: , DONNY 04/21/25, Tamar Zheng Tyrone Orders: Orders CBC W/Diff, Automated 08/31/24 Z34. - Encounter for supervision of normal , unspecified,unspecified trimester Type & Screen 08/31/24 Z34. - Encounter for supervision of normal , unspecified, unspecified trimester Rubella IgG 08/31/24 Z34.90 - Encounter for supervision of normal , unspecified, unspecified trimester Hepatitis C Antibody 08/31/24 Z34. - Encounter for supervision of normal , unspecified, unspecified trimester Hepatitis B Surface Antigen 08/31/24 Z34.90 - Encounter for supervision of normal , unspecified, unspecified trimester Culture, Urine 08/31/24 Z34.90 - Encounter for supervision of normal , unspecified, unspecified trimester Syphilis Antibodies 08/31/24 Z34.90 - Encounter for supervision of normal , unspecified, unspecified trimester Chlamydia/GC KENYETTA aptima 08/31/24 Z34.90 - Encounter for supervision of normal , unspecified, unspecified trimester HIV 08/31/24 Z34.90 - Encounter for supervision of normal , unspecified, unspecified trimester Lipid Profile Today Z13.220 - Encounter for screening for lipoid disorders Comments Comments: Patient oriented to practice and discussed care expectations and screenings. ACOG book offered to patient. Discussed routine and specially indicated labs if needed- patient consents to testing. See problem list details for plan information. Optional screening including maternal carrier screenings, neural tube defect screening, genetic screening options including quad screen, nuchal translucency, sequential screening, and NIPT screening offered to patient and patient chose: [ ] 09/20/24 1332 s BEATRIS> Date _ Petra Goncalves CNM Cosigner Signature: Date (if applicable) CC: ~ [facility]04-12-2024 NotePap Smear Specimen AdequacyApril 2023 11:59pmComment.Satisfactory for evaluation. No endocervical component is identified.[facility] A#[id number] Clinic Medina HospitalComment on above:Satisfactory for evaluation. No endocervical component is identified. Evaluation noteNo assessment information availableWCleveland Clinic Medina Hospital Work Phone: Evaluation note* Diagnosis Onset Date Resolution Status acute [facility] Work Phone: Evaluation note* Diagnosis Onset Date Resolution Status Encounter for routine gynecological examination noneactive [facility] Work Phone: Evaluation note* Diagnosis Onset Date Resolution Status Admit Date acute September 20, 2024 12:56pm Seasonal allergies acute September 202024 12:56pm Supervision of normal acut e September 20, 2024 12:56pm [facility] Work Phone: Progress note Author Petra Goncalves [facility] Note Date/Time September 20, 2024 1:32p m [facility] [address] [place] [address], [address] [place] [address] OFFICE VISIT Date of Service: 09/20/24 MR#: [id number] Acct: [id number] Name: GIULIA HOGUE Rep #: [id number] : 1990 Provider: BEATRIS Goncalves Age/Sex: 34/F Location: [facility] Status: Signed Intake Vital Signs 08/19/23 14:44 09/20/24 12:59 Height 5 ft 4 in 5 ft 4 in Weight: 161 lb 6 oz BMI 27.6 BP 117/81 H Intake Visit Reasons: New OB, LMP 07/15, DONNY 04/21 Chief Complaint: New OB Bunker Worker Required: No Is patient in pain?: No Allergies No Known Allergies Allergy (Verified 09/20/24 12:57) Medications ?Medication ?Instructions ?Recorded ?Confirmed ?Type fluticasone propionate 50 1 spray intranasal PRN PRN 0 09/03/21 09/20/24 History mcg/actuation nasal allergies spray,suspension (Flonase Allergy Relief) cetirizine 10 mg capsule (Zyrtec) 10 mg PO QDAY PRN 09/20/24 History multivit-min no.71-iron fum 28 cap PO 08/31/24 5 History mg-folate no.1 1 mg-dha 300 mg capsule (PNV-Thornton) Last Menstrual Period: 07/15/24 : Yes PFSH PFSH Medical History URI (upper respiratory infection) Lab test negative for COVID-19 virus Seasonal allergies Surgical History History of wisdom tooth extraction Family History Father Heart disease Mother Diabetes Other Hypertension Social History adopted: No household members: spouse and children housing: house number of children: 2 service: No current occupational status: employed 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 current occupational exposures/hazards: No pets and animals: Yes pets and animals: dog(s) history of recent travel: No sexually active: Yes Smoking Status: Never smoker alcohol intake: current details: socially- not while substance use type: does not use well-balanced diet: daily or most days caffeine: Yes Type: coffee Number of servings: 1 eating out: 1-3 times/week during the past year weight has: remained stable what type of physical activity do you participate in: none angel/gnosticist: Scientology seatbelt use: always do you feel safe at home: Yes additional social history: Spouse - Jan Hansen and tamar children History 3 Elective abortions Hx Para 2 Spontaneous abortions Hx # Term Pregnancies Ectopic pregnancies Hx # Pregnancies Multiple births # of living children 2 Past Pregnancies Del. Date Name GA/Weeks Outcome Route Bth Weight Gen Labor Lgth Anesthesia Del Locatn Provider FOB 01/05/19 Waqas 41 live - full term 7#13oz Male epi dural [facility] Kate Tyrone 09/04/21 Tamar 39 live - full term 8# Female epid ural [facility] Cooper Mio Hansen Delivery Date: 01/05/19 Last Updated by: Courtney Lovett pitocin used after labor started HPI New OB, LMP 07/15, DONNY 04/21 Details: GIULIA HOGUE is a 34 year old who presents for New OB visit. OB Visit DONNY Calculator Estimated Delivery Date Method Current WG Current Estimate 04/21/25 LMP (Certain) 9w 4d Other Estimates 04/21/25 Ultrasound #1 9w 4d Comments: HIV: Urine Culture: Sequential Screen: NIPT Screen: Estimated Due Date: 04/21/25 Expected Delivery Route/Plan Labor Preferences- CB/BF classes: [] labor support person: [] labor intervention preferences: [] pain management options preferred: [] cut cord/dad catch: [] : [] PP control planned: [] discussed possible routes of delivery and associated risks: [] special requests: [] Specific Issue/Plans Covid status: [] Flu vaccine: [] Tdap vaccine: [] Rhogam: [] LARC form signed: [] Problem list reviewed and updated with the most current plan of care details and appropriate orders placed. Relevant counseling for the gestational age provided. Continue routine care and follow up unless otherwise noted in visit notes/problem list details Initial Weight: 161 lb Date -?-?-?-?-?-?-?-?-?-?-?-?- EGA Weight BP Urine Prot -?-?-?-?-?-?-?-?-?-?-?-?- Glucose FHR FuHt Pres Dilation -?-?-?-?-?-?-?-?-?-?-?-?- Effaced St Visit Note 09/20/24 -?-?-?-?-?-?-?-?-?-?-?-?- 9w 4d 161 lb 6 oz (+6 oz) 117/81 -?-?-?-?-?-?-?-?-?-?-?-?- 188 -?-?-?-?-?-?-?-?-?-?-?-?- KW- CRL cons wit h dates. declines NIPT Menstrual History Last Menstrual Period: 07/15/24 Reported LMP: definite Normal amount/duration: Yes Frequency in days: 28 On hormonal BC at conception: No hCG+: 08/19/24 Antepartum Record Genetic Screening: Congenital Heart Defect: Other, Neural Tube Defect: Other, Hemoglobinopathy Or Carrier: Other, Cystic Fibrosis: Other, Chromosome Abnormality: Other, Michi-Sachs: Other, Hemophilia: Other, Intellectual Disability/Autism: Other, Recurrent Loss/Stillbirth: Other, Other Structural Defect: Other, Other Genetic Disease: Other and Maternal Metabolic Disorder: Other Infection History: Live with someone with TB or Exposed to TB: No, Patient or Partner has history of Genital Herpes: No, Rash or Viral illness since last mentrual period: Yes (common cold- 08/07/24), Prior GBS-Infected child: No, History of STD: No, HIV Infection: No, History of Hepatitis: No, Recent travel outside of [place]: No, Concern for hepatitis exposure: No, Varicella immune: Yes (immune- vaccinated) and Covid Vaccinated: Yes (Pfizer, No Booster) Medical History Medical History: Positive: Seasonal allergies, Operations/hospitalizations (wisdom teeth) and Uterine anomaly/alonzo (per pt Maybe misshaped(Had 2 vaginal deliveries)) and Negative: Diabetes, Hypertension, Heart disease, Auto-immune disorder, Kidney disease/UTI, Neurologic/epilepsy, Psychiatric, Depression/ depression, Hepatitis/liver disease, Varicosities/phlebitis, Thyroid dysfunction, Trauma/domestic violence, History of blood transfusions, D (Rh) Sensitized, Pulmonary (e.g.,TB,Asthma), Drug/latex allergies/reactions, Breast, Hired Hand surgery, Anesthetic complications, History of abnormal pap, Infertility, Anti-retroviral treatment, Relevant family history (No additions- see PFSH) and Other ACOG First Trimester First Trimester: Nurtrition and weight gain and Second Trimester Second Trimester: Signs and Symptoms of Labor, Selecting a care provider, Reproductive Life Planning & Contreception, Care Planning, Depression/Anxiety and Intimate Partner Violence; Discussed Tobacco Cessation Third Trimester Third Trimester: Pain Management Plans, Labor support person(s), Immediate Larc, Signs and Symptoms of Preeclampsia, Infant Feeding Yes , [place] Education and Family Medical Leave or Disability Forms ROS Const Reports system reviewed and no additional complaints, except as documented, Denies fatigue, Denies headache(s) and Denies lethargy ENT Denies headache(s) Card Reports system reviewed and no additional complaints, except as documented Resp Reports system reviewed and no additional complaints, except as documented GI Reports system reviewed and no additional complaints, except as documented, Denies abdominal pain, Denies constipation, Denies cramping, Denies diarrhea and Denies dyspepsia Reports system reviewed and no additional complaints, except as documented, Denies abnormal vaginal bleeding, Denies difficulty voiding, Denies dyspareunia and Denies dysuria Musc Reports system reviewed and no additional complaints, except as documented Skin/Breast Reports system reviewed and no additional complaints, except as documented Neuro Yes system reviewed and no additional complaints, except as documented and No headache(s) Psych Reports system reviewed and no additional complaints, except as documented, Denies anhedonia and Denies anxiety Endo Reports system reviewed and no additional complaints, except as documented and Denies fatigue Exam Const General: cooperative, healthy appearing and comfortable Neck Neck: normal visual inspection and full ROM Chest Chest palpation & inspection: normal inspection of the chest Breast inspection: normal inspection of the breasts and normal inspection of the axillae Breast palpation: normal palpation of the breasts and normal palpation of the axillae Resp Effort & Inspection: normal respiratory effort and able to speak in complete sentences GI Inspection: normal to inspection Palpation: soft External Female Exam: normal external appearance and normal appearance of the urethra Urethra: normal appearance of the urethra Skin General: no rashes or lesions noted Neuro General: patient alert, patient awake and patient oriented x3 Extrem General: normal to inspection and full ROM Psych Appearance: grossly normal and well kempt Mental Status: mental status grossly normal Mood: congruent mood Affect: normal affect Speech and Movement: speech and movement normal Thought Process: normal Thought Content: normal Coding Level of Care Code OB Routine Diagnoses 9 weeks gestation of Z3A.09 Weeks of gestation: 9 weeks Seasonal allergies J30.2 Supervision of normal Z Assessment and Plan Assessment and Plan (1) : Status: Acute Qualifiers: Weeks of gestation: 9 weeks Qualified Code(s): Z3A.09 - 9 weeks gestation of Comment: declined NIPT & Carrier testing (2) Seasonal allergies: Status: Acute (3) Supervision of normal : Status: Acute Comment: , DONNY 04/21/25, Tamar Zheng Tyrone Orders: Orders CBC W/Diff, Automated 08/31/24 - Encounter for supervision of normal , unspecified, unspecified trimester Type & Screen 08/31/24 Z34 - Encounter for supervision of normal , unspecified, unspecified trimester Rubella IgG 08/31/24 Z34 - Encounter for supervision of normal , unspecified, unspecified trimester Hepatitis C Antibody 08/31/2434 - Encounter for supervision of normal , unspecified, unspecified trimester Hepatitis B Surface Antigen 08/31/2434 - Encounter for supervision of normal , unspecified, unspecified trimester Culture, Urine 08/31/2434 - Encounter for supervision of normal , unspecified, unspecified trimester Syphilis Antibodies 08/31/2434 - Encounter for supervision of normal , unspecified, unspecified trimester Chlamydia/GC KENYETTA aptima 08/31/24 Z34 - Encounter for supervision of normal , unspecified, unspecified trimester HIV 08/31/24 Z34. - Encounter for supervision of normal , unspecified, unspecified trimester Lipid Profile Today Z13.220 - Encounter for screening for lipoid disorders Comments Comments: Patient oriented to practice and discussed care expectations and screenings. ACOG book offered to patient. Discussed routine and specially indicated labs if needed- patient consents to testing. See problem list details for plan information. Optional screening including maternal carrier screenings, neural tube defect screening, genetic screening options including quad screen, nuchal translucency, sequential screening, and NIPT screening offered to patient and patient chose: [ ] 09/20/24 1332 <Electronically signed by Petra alejandre CNM> Date _ Petra Goncalves CNM Cosigner Signature: Date (if applicable) CC: ~ [facility] Work Phone: Progress note Author Alyse Raza [facility] Note Date/Time February 05, 2025 9:50am [facility] [address] [place] [address], [place] [address] OFFICE VISIT Date of Service: 02/05/25 MR#: [id number] Acct: [id number] Name: GIULIA HOGUE Rep #: [id number] : 1990 Provider: JEFFY Raza Age/Sex: 34/F Location: [facility] Status: Signed Intake Vital Signs 11/19/24 15:18 01/15/25 09:15 02/05/25 09:33 02/05/25 09:37 Height 5 ft 4 in 5 ft 4 in 5 ft 4 in 5 ft 4 in Weight: 175 lb 4 oz 179 lb 4 oz BMI 30.0 30.7 BP 109/73 112/71 Intake Visit Reasons: 28 wk ob Chief Complaint: 28 Week OB Bunker Worker Required: No Is patient in pain?: No Allergies No Known Allergies Allergy (Verified 02/05/25 09:32) Medications ?Medication ?Instructions ?Recorded ?Confirmed ?Type fluticasone propionate 50 1 spray intranasal PRN PRN 0 09/03/21 02/05/25 History mcg/actuation nasal allergies spray,suspension (Flonase Allergy Relief) cetirizine 10 mg capsule (Zyrtec) 10 mg PO QDAY PRN 02/05/25 History multivit-min no.71-iron fum 28 cap PO 08/31/24 5 History mg-folate no.1 1 mg-dha 300 mg capsule (PNV-Thornton) Last Menstrual Period: 07/15/24 Zika: Zika virus screening: Negative : Yes [facility] Medical History URI (upper respiratory infection) Lab test negative for COVID-19 virus Seasonal allergies Surgical History History of wisdom tooth extraction Family History Father Heart disease Mother Diabetes Other Hypertension Social History adopted: No household members: spouse and children housing: house number of children: 2 current occupational status: employed 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 [employer] current occupational exposures/hazards: No pets and animals: Yes pets and animals: dog(s) history of recent travel: No sexually active: Yes Smoking Status: Never smoker alcohol intake: current details: socially- not while substance use type: does not use well-balanced diet: daily or most days caffeine: Yes Type: coffee Number of servings: 1 eating out: 1-3 times/week during the past year weight has: remained stable what type of physical activity do you participate in: none angel/gnosticist: Scientology seatbelt use: always do you feel safe at home: Yes additional social history: Spouse - Jan Hansen and tamar children History 3 Elective abortions Hx Para 2 Spontaneous abortions Hx # Term Pregnancies Ectopic pregnancies Hx # Pregnancies Multiple births # of living children 2 Past Pregnancies Del. Date Name GA/Weeks Outcome Route Bth Weight Infant Gen Labor Lgth Anesthesia Del Locatn Provider FOB 01/05/19 Waqas 41 live - full term 7#13oz Male epi dural [facility] Kate Hansen 09/04/21 Tamar 39 live - full term 8# Female epid ural [facility] Cooper Hansen Delivery Date: 01/05/19 Last Updated by: Courtney Lovett pitocin used after labor started HPI 28 wk ob Details: GIULIA HOGUE is a 34 year old who presents for routine OB visit. OB Visit DONNY Calculator Estimated Delivery Date Method Current WG Current Estimate 04/21/25 LMP (Certain) 29w 2d Other Estimates 04/21/25 Ultrasound #1 29w 2d Expected Delivery Route/Plan Labor Preferences- CB/BF classes: no labor support person: Tyrone labor intervention preferences: [] pain management options preferred: epidural cut cord/dad catch: YES : yes PP control planned: discussed discussed possible routes of delivery and associated risks: [] special requests: [] Specific Issue/Plans Covid status: [] Flu vaccine: [] Tdap vaccine: given Rhogam: NA LARC form signed: yes Problem list reviewed and updated with the most current plan of care details and appropriate orders placed. Relevant counseling for the gestational age provided. Continue routine care and follow up unless otherwise noted in visit notes/problem list details Initial Weight: 161 lb Date -?-?-?-?-?-?-?-?-?-?-?-?- EGA Weight BP Urine Prot -?-?-?-?-?-?-?-?--?-?-?-?- Glucose FHR FuHt Pres Dilation -?-?-?-?-?-?-?-?-?-?-?-?- Effaced St Visit Note 09/20/24 -?-?-?-?-?-?-?-?-?-?-?-?- 9w 4d 161 lb 6 oz (+6 oz) 117/81 -?-?-?-?-?-?-?-?-?-?-?-?- 188 -?-?-?-?-?-?-?-?-?-?-?-?- KW- CRL cons wit h dates. declines NIPT 10/23/24 -?-?-?-?-?-?-?-?-?-?-?-?- 14w 2d 165 lb 2 oz (+4 lb 2 oz) 119/77 Negative -?-?-?-?-?-?-?-?-?-?-?-?- Negative 145 -?-?-?-?-?-?-?-?-?-?--?-?- JV- no complaint s today. needs insurance info filed out. klali NIPT. 11/19/24 -?-?-?-?-?-?-?-?-?-?-?-?- 18w 1d 170 lb 2 oz (+9 lb 2 oz) 122/78 Negative -?-?-?-?-?-?-?-?-?-?-?-?- Negative 150 -?-?-?-?-?-?-?-?-?-?-?-?- SM- no vb crampi ng doing well 12/18/24 -?-?-?-?-?-?-?-?-?-?-?-?- 22w 2d 172 lb 6 oz (+11 lb 6 oz) 112/77 Negative -?-?-?-?-?-?-?-?-?-?-?-?- Negative 145 -?-?-?-?-?-?-?-?-?--?-?-?- MH-No VB, LOF. G otamiko FM. [facility]. MG for leg cramps 01/15/25 -?-?-?-?-?-?-?-?-?-?-?-?- 26w 2d 175 lb 4 oz (+14 lb 4 oz) 109/73 Negative -?-?-?-?-?-?-?-?-?-?-?-?- Negative 140 26 -?-?-?-?-?-?-?-?-?-?-?-?- SM- no vb lof go od f mno reuglar ctx cbc gct today 02/05/25 -?-?-?-?-?-?-?-?-?-?-?-?- 29w 2d 179 lb 4 oz (+18 lb 4 oz) 112/71 Negative -?-?-?-?-?-?-?-?-?-?-?-?- Negative 135 28 -?-?-?-?-?-?--?-?-?-?-?-?- MH-No VB, LOF. G ood FM. tdap. ACOG First Trimester First Trimester: Desire for , Alcohol, Tobacco Cessation, Illicit/Recreational Drug/Substance Use, Intimate Partner Violence, Barriers to care, Unstable Housing, Communication Barriers, Environmental/Work Hazards, Anticipated Course of Care, Toxoplasmosis Precations, Use of Any medications, Sexual activity, Exercise, Dental Care, Sauna/Hot tub use, Seat Belt use, Childbirth classes/Hospital facilities, , Travel, Indications for Ultrasound and Screening for Aneuploidy Second Trimester Second Trimester: Signs and Symptoms of Labor, Selecting a care provider, Reproductive Life Planning & Contreception, Care Planning, Depression/Anxiety and Intimate Partner Violence; Discussed Tobacco Cessation Third Trimester Third Trimester: Pain Management Plans, Labor support person(s), Immediate Larc, Circumcision preference Yes Yes, Signs and Symptoms of Preeclampsia, Infant Feeding Yes , [place] Education, Family Medical Leave or Disability Forms and Intimate Partner Violence ROS Const Reports system reviewed and no additional complaints, except as documented GI Denies abdominal pain, Denies nausea and Denies vomiting Exam Const General: cooperative Nutritional Appearance: well nourished GI Palpation: soft, nontender and other (gravid) Results POC Urinalysis 2 Dip (Clinic) Office Urine Glucose Negative Last Edit by Brooke Lieberman on 02/05/25 09 :38 Office Urine Protein Negative Last Edit by Brooke Lieberman on 02/05/25 09 :38 Immunizations Adacel(Tdap Adolesn/Adult)(PF) 2 Lf-(2.5-5-3-5)-5 Lf/0.5 mL IM syringe Performing Provider: Alyse Raza CLOCKMAKER, CLOCKMAKER-C Performing Location: [facility] Administered by: Brooke Lieberman on 02/05/25 09:41 Dose Route Admin Location Dispensed Lot Number Expiration Date Pack age NDC NDC Line Therapist 0.5 mL IM Right Deltoid 0.5 mL [id number] 01/06/27 54559-404-40 [id number] [employer]ANTV[employer]- PASTEUR VIS Given Date VIS Provided VIS Publication Date 02/05/25 Single Vaccine 24 Eligibility Eligibility Date Funding Source Not Applicable Coding Level of Care Code OB Routine Diagnoses Encounter for supervision of other normal in second trimester Z34.82 Normal : other normal Trimester: second trimester 29 weeks gestation of Z3A.29 Weeks of gestation: 29 weeks Assessment and Plan Assessment and Plan (1) Supervision of normal : Status: Acute Qualifiers: Normal : other normal Trimester: second trimester Qualified Code(s): Z34.82 - Encounter for supervision of other normal , second trimester Comment: PRR, , DONNY 04/21/25,boy DANNY Alan, Tamar Tyrone (2) : Status: Acute Qualifiers: Weeks of gestation: 29 weeks Qualified Code(s): Z3A.29 - 29 weeks gestation of Comment: declined NIPT & Carrier, afp testing. nl anatomy Orders: Orders POC Urinalysis 2 Dip (Clinic) Today Tdap Immunization Today Z23 - Encounter for immunization Plan problem list reviewed and updated for most current plan of care and appropriate orders placed. Relevant counseling for the gestational age appropriate provided and ACOG education checklist updated. Continue routine care and follow up. 02/05/25 0959 <Electronically signed by Alyse alejandre NP CLOCKMAKER-C> Date _ Alyse Raza NP CLOCKMAKER-C Cosigner Signature: Date (if applicable) CC: ~ [facility] Work Phone: Progress note Author Pooja Diop [facility] Note Date/Time February 22, 2025 9 :28am [facility] [place] [address] [place] [address], [address] [place] [address] OFFICE VISIT Date of Service: 02/22/25 MR#: [id number] Acct: [id number] Name: GIULIA HOGUE Rep #: [id number] : 1990 Provider: Dr. 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: No Is patient in pain?: No Allergies No Known Allergies Allergy (Verified 02/22/25 09:01) Medications ?Medication ?Instructions ?Recorded ?Confirmed ?Type fluticasone propionate 50 1 spray intranasal PRN PRN 0 09/03/21 02/22/25 History mcg/actuation nasal allergies spray,suspension (Flonase Allergy Relief) cetirizine 10 mg capsule (Zyrtec) 10 mg PO QDAY PRN 02/22/25 History multivit-min no.71-iron fum 28 cap PO 08/31/24 5 History mg-folate no.1 1 mg-dha 300 mg capsule (PNV-Thornton) Last Menstrual Period: 07/15/24 Zika: Zika virus screening: Negative : No PFSH PFSH Medical History URI (upper respiratory infection) Lab test negative for COVID-19 virus Seasonal allergies Surgical History History of wisdom tooth extraction Family History Father Heart disease Mother Diabetes Other Hypertension Social History adopted: No household members: spouse and children housing: house number of children: 2 current occupational status: employed 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 [employer] current occupational exposures/hazards: No pets and animals: Yes pets and animals: dog(s) history of recent travel: No sexually active: Yes Smoking Status: Never smoker alcohol intake: current details: socially- not while substance use type: does not use well-balanced diet: daily or most days caffeine: Yes Type: coffee Number of servings: 1 eating out: 1-3 times/week during the past year weight has: remained stable what type of physical activity do you participate in: none angel/gnosticist: Scientology seatbelt use: always do you feel safe at home: Yes additional social history: Spouse - Tyrone, Jan and tamar children History 3 Elective abortions Hx Para 2 Spontaneous abortions Hx # Term Pregnancies Ectopic pregnancies Hx # Pregnancies Multiple births # of living children 2 Past Pregnancies Del. Date Name GA/Weeks Outcome Route Bth Weight Gen Labor Lgth Anesthesia Del Locatn Provider FOB 01/05/19 Waqas 41 live - full term 7#13oz Male epi dural [facility] Kate Tyrone 09/04/21 Tamar 39 live - full term 8# Female epid ural [facility] Cooper Hansen Delivery Date: 01/05/19 Last Updated by: Courtney Lovett pitocin used after labor started HPI 30wk ob Details: GIULIA HOGUE is a 34 year old who presents for routine OB visit. OB Visit DONNY Calculator Estimated Delivery Date Method Current WG Current Estimate 04/21/25 LMP (Certain) 31w 5d Other Estimates 04/21/25 Ultrasound #1 31w 5d Expected Delivery Route/Plan Labor Preferences- CB/BF classes: no labor support person: Tyrone labor intervention preferences: [] pain management options preferred: epidural cut cord/dad catch: YES : yes PP control planned: discussed discussed possible routes of delivery and associated risks: [] special requests: [] Specific Issue/Plans Covid status: [] Flu vaccine: declined Tdap vaccine: given Rhogam: NA LARC form signed: yes movement and labor precautions reviewed. Problem list reviewed and updated with the most current plan of care details and appropriate orders placed. Relevant counseling for the gestational age provided. Continue routine care and follow up unless otherwise noted in visit notes/problem list details Initial Weight: 161 lb Date -?-?-?-?-?-?-?-?-?-?-?-?- EGA Weight BP Urine Prot -?-?-?-?-?-?-?-?-?-?-?-?- Glucose FHR FuHt Pres Dilation -?-?-?-?-?-?-?-?-?-?-?-?- Effaced St Visit Note 09/20/24 -?-?-?-?-?-?-?-?-?-?-?-?- 9w 4d 161 lb 6 oz (+6 oz) 117/81 -?-?-?-?-?-?-?-?-?-?-?-?- 188 -?-?-?-?-?-?-?-?-?-?-?-?- KW- CRL cons wit h dates. declines NIPT 10/23/24 -?-?-?-?-?-?-?-?-?-?-?-?- 14w 2d 165 lb 2 oz (+4 lb 2 oz) 119/77 Negative -?-?-?-?-?-?-?-?-?-?-?-?- Negative 145 -?-?-?-?-?-?-?-?-?-?-?-?- JV- no complaint s today. needs insurance info filed out. declines NIPT. 11/19/24 -?-?-?-?-?-?-?-?-?-?-?-?- 18w 1d 170 lb 2 oz (+9 lb 2 oz) 122/78 Negative -?-?-?-?-?-?-?-?-?-?-?-?- Negative 150 -?-?-?-?-?-?-?-?-?-?-?-?- SM- no vb crampi ng doing well 12/18/24 -?-?-?-?-?-?-?-?-?-?-?-?- 22w 2d 172 lb 6 oz (+11 lb 6 oz) 112/77 Negative -?-?-?-?-?-?-?-?-?-?-?-?- Negative 145 -?-?-?-?-?-?-?-?-?-?-?-?- MH-No VB, LOF. G ood FM. Larc. MG for leg cramps 01/15/25 -?-?-?-?-?-?-?-?-?-?-?-?- 26w 2d 175 lb 4 oz (+14 lb 4 oz) 109/73 Negative -?-?-?-?-?-?-?-?-?-?-?-?- Negative 140 26 -?-?-?-?-?-?-?-?-?-?-?-?- SM- no vb lof go od f mno reuglar ctx cbc gct today 02/05/25 -?-?-?-?-?-?-?-?-?-?-?-?- 29w 2d 179 lb 4 oz (+18 lb 4 oz) 112/71 Negative -?-?-?-?-?-?-?-?-?-?-?-?- Negative 135 28 -?-?-?-?-?-?-?-?-?-?-?-?- MH-No VB, LOF. G ood FM. tdap. 02/22/25 -?-?-?-?-?-?-?-?-?-?-?-?- 31w 5d 178 lb 7 oz (+17 lb 7 oz) 109/74 Negative -?-?-?-?-?-?-?-?-?-?-?-?- Negative 140 30 -?-?-?-?-?-?-?-?-?-?-?-?- Sm- no vb lof go od fm no regular ctx ACOG First Trimester First Trimester: Desire for , Alcohol, Tobacco Cessation, Illicit/Recreational Drug/Substance Use, Intimate Partner Violence, Barriers to care, Unstable Housing, Communication Barriers, Environmental/Work Hazards, Anticipated Course of Care, Toxoplasmosis Precations, Use of Any medications, Sexual activity, Exercise, Dental Care, Sauna/Hot tub use, Seat Belt use, Childbirth classes/Hospital facilities, Travel, Indications for Ultrasound and Screening for Aneuploidy; Discussed Second Trimester Second Trimester: Signs and Symptoms of Labor, Selecting a care provider, Reproductive Life Planning & Contreception, Care Planning, Depression/Anxiety and Intimate Partner Violence; Discussed Tobacco Cessation Third Trimester Third Trimester: Pain Management Plans, Labor support person(s), Immediate Larc, Circumcision preference, Signs and Symptoms of Preeclampsia, Feeding No , Education, Family Medical Leave or Disability Forms and Intimate Partner Violence Results POC Urinalysis 2 Dip (Clinic) Office Urine Glucose Negative Last Edit by Alyse Brown on 02/22/25 09:06 Office Urine Protein Negative Last Edit by Alyse Brown on 02/22/25 09:06 Coding Level of Care Code OB Routine Diagnoses 31 weeks gestation of Z3A.31 Weeks of gestation: 31 weeks Encounter for supervision of other normal in second trimester Z34.82 Normal : other normal Trimester: second trimester Assessment and Plan Assessment and Plan (1) : Status: Acute Qualifiers: Weeks of gestation: 31 weeks Qualified Code(s): Z3A.31 - 31 weeks gestation of Comment: declined NIPT & Carrier, afp testing. nl anatomy (2) Supervision of normal : Status: Acute Qualifiers: Normal : other normal Trimester: second trimester Qualified Code(s): Z34.82 - Encounter for supervision of other normal , second trimester Comment: PRR, , DONNY 04/21/25,boy DANNY Alan, Tamar Tyrone Orders: Orders POC Urinalysis 2 Dip (Clinic) Today 02/22/25927 <Electronically signed by Pooja valles MD> Date _ Pooja Diop MD Cosigner Signature: Date (if applicable) CC: ~ [facility] Work Phone: Reason for referral (narrative)No reason for referral information available[facility]c [facility] Hospital Work Phone: Summary Purpose Family History No Family History Records Found Relationship Condition Age at Onset Recorded Date/T aurea Not Specified Diabetes mellitus Unknown Cardiac disease Unknown Hypertension Unknown Relationship Condition Age at Onset Recorded Date/T aurea Not Specified Hypertension Unknown father Cardiac disease Unknown mother Diabetes mellitus Unknown Advance Directives No Advanced Directives Records Found Advance Directive Response Recorded Date/ Time Living Will No January 04, 201 9 9:02pm Power of Ground Wood Supervisor No January 04, 2 019 9:02pm Advance Directive Response Recorded Date/ Time Living Will No September 03, 2021 10:31pm Power of Ground Wood Supervisor No September 03 10:31pm Chief Complaint and Reason for Visit Chief Complaint VAGINAL DELIVERY Reason for Visit Chief Complaint VAGINAL DELIVERY baby weight check and jaundice Reason for Visit Chief Complaint 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 Reason for Visit Encounter for routin e gynecological examination Chief Complaint Admit Date New OB, LMP 3/9, DONNY 04/21September 20 12:56pm Reason for Visit Admit Date September 20, 2024 12:56 pm Seasonal allergies September 20, 2024 12:56 pm Supervision of normal September 12:56pm Chief Complaint Admit Date New OB, LMP 3/9, DONNY 04/21September 20 12:56pm 14wk OB October 23, 2024 10:1 4am Reason for Visit Admit Date September 20, 2024 12:56 pm Seasonal allergies September 20, 2024 12:56 pm Supervision of normal September 12:56pm October 23, 2024 10:1 4am Seasonal allergies October 23, 2024 10:1 4am Supervision of normal October 10:14am Chief Complaint Admit Date New OB, LMP 3/9, DONNY 04/21September 20 12:56pm 14wk OB October 23, 2024 10:1 4am 18 wk ob November 19, 2024 3:15 pm Reason for Visit Admit Date September 20, 2024 12:56 pm Seasonal allergies September 20, 2024 12:56 pm Supervision of normal September 12:56pm October 23, 2024 10:1 4am Seasonal allergies October 23, 2024 10:1 4am Supervision of normal October 10:14am November 19, 2024 3:15 pm Seasonal allergies November 19, 2024 3:15 pm Supervision of normal November 3:15pm Chief Complaint Admit Date New OB, LMP 3/9, DONNY 04/21September 20 12:56pm 14wk OB October 23, 2024 10:1 4am 18 wk ob November 19, 2024 3:15 pm 22 wk ob December 18, 2024 8: 23am Reason for Visit Admit Date September 20, 2024 12:56 pm Seasonal allergies September 20, 2024 12:56 pm Supervision of normal September 12:56pm October 23, 2024 10:1 4am Seasonal allergies October 23, 2024 10:1 4am Supervision of normal October 10:14am November 19, 2024 3:15 pm Seasonal allergies November 19, 2024 3:15 pm Supervision of normal November 3:15pm December 18, 2024 8: 23am Seasonal allergies December 18, 2024 8: 23am Supervision of normal December 072024 8:23am Chief Complaint Admit Date New OB, LMP 3/9, DONNY 04/21September 20 12:56pm 14wk OB October 23, 2024 10:1 4am 18 wk ob November 19, 2024 3:15 pm 22 wk ob December 18, 2024 8: 23am 26 wk ob January 15, 2025 9:09am Reason for Visit Admit Date September 20, 2024 12:56 pm Supervision of normal September 12:56pm Seasonal allergies September 20, 2024 12:56 pm October 23, 2024 10:1 4am Supervision of normal October 10:14am Seasonal allergies October 23, 2024 10:1 4am November 19, 2024 3:15 pm Supervision of normal November 3:15pm Seasonal allergies November 19, 2024 3:15 pm December 18, 2024 8: 23am Supervision of normal December 072024 8:23am Seasonal allergies December 18, 2024 8: 23am January 15, 2025 9:09am Supervision of normal Septembe 2024 9:09am Chief Complaint Admit Date 14wk OB October 23, 2024 10:1 4am 18 wk ob November 19, 2024 3:15 pm 22 wk ob December 18, 2024 8: 23am 26 wk ob January 15, 2025 9:09am 28 wk ob February 05, 2025 9:29am Reason for Visit Admit Date October 23, 2024 10:1 4am Supervision of normal October 10:14am Seasonal allergies October 23, 2024 10:1 4am November 19, 2024 3:15 pm Supervision of normal November 3:15pm Seasonal allergies November 19, 2024 3:15 pm December 18, 2024 8: 23am Supervision of normal December 072024 8:23am Seasonal allergies December 18, 2024 8: 23am January 15, 2025 9:09am Supervision of normal Septembe r 2024 9:09am February 05, 2025 9:29am Supervision of normal Septembe r 2024 9:29am Chief Complaint Admit Date 18 wk ob November 19, 2024 3:15 pm 22 wk ob December 18, 2024 8: 23am 26 wk ob January 15, 2025 9:09am 28 wk ob February 05, 2025 9:29am 30wk ob February 22, 2025 8 :49am Reason for Visit Admit Date November 19, 2024 3:15 pm Supervision of normal November 3:15pm Seasonal allergies November 19, 2024 3:15 pm December 18, 2024 8: 23am Supervision of normal December 072024 8:23am Seasonal allergies December 18, 2024 8: 23am January 15, 2025 9:09am Supervision of normal Septembe r 2024 9:09am February 05, 2025 9:29am Supervision of normal Septembe r 2024 9:29am February 22, 2025 8 :49am Supervision of normal February 22, 2025 8:49am Additional Source Comments INFORMATION SOURCE (unrecogn ized section and content) DATE CREATED AUTHOR 05/19/2020 [facility] DATE CREATED AUTHOR AUTHOR'S ORGANIZ ATION 12/01/2024 [facility] DATE CREATED AUTHOR AUTHOR'S ORGANIZ ATION 03/20/2025 [facility] Goals (unrecognized section and content) Type Care Experience svdLabor Preferences -CB/BF classes: nolabor support person: Bel intervention preferences: []pain management options preferred: epiduralcut cord/dad catch: YESbreastfeeding: yesPP control planned: discusseddiscussed possible routes of delivery and associated risks: []special requests: [] Care Teams (unrecognized sec tion and content) Team Status: Active Member Role Status Dates Dr. Astrid Guerrero MD Family Provider Active Renata Lundy , Primary Care Provider Active Team Status: Inactive Member Role Status Zahra Lundy , Primary Care Provider, Attending Provider Active Team Status: Inactive Member Role Status Zahra Lundy , Primary Care Provider, Referring Provider Active Laisha Mccoy CNM Attending Provider Active Team Status: Inactive Member Role Status Zahra Lundy DO Primary Care Provider Active Laisha Mccoy CNM Attending Provider, Referring Pr ovider Active Team Status: Active Member Role Status Dates Dr. Astrid Guerrero MD Family Provider Active Jose Blanca MD Primary Care Provider Active Team Status: Inactive Member Role Status Zahra Blanca MD Primary Care Provider Active St art: September 20, 2024 End: September 20, 2024 Jose Blanca MD Referring Provider Active Start : September 20, 2024 End: September 20, 2024 Petra Goncalves CNM Attending Provider Active S tart: September 20, 2024 End: September 20, 2024 Team Status: Active Member Role Status Zahra Blanca MD Primary Care Provider Active St art: September 20, 2024 Petra Goncalves CNM Attending Provider Active S tart: September 20, 2024 Petra Goncalves CNM Referring Provider Active S tart: September 20, 2024 Team Status: Inactive Member Role Status Zahra Blanca MD Primary Care Provider Active St art: September 20, 2024 End: September 20, 2024 Petra Goncalves CNM Attending Provider Active S tart: September 20, 2024 End: September 20, 2024 Petra Goncalves CNM Referring Provider Active S tart: September 20, 2024 End: September 20, 2024 Team Status: Active Member Role Status Zahra Blanca MD Primary Care Provider Active Team Status: Inactive Member Role Status Zahra Blanca MD Primary Care Provider Active St art: October 23, 2024 End: October 23, 2024 Jose Blanca MD Referring Provider Active Start : October 23, 2024 End: October 23, 2024 Dr. Kaleigh Milner , Attending Provider Activ e Start: October 23, 2024 End: October 23, 2024 Team Status: Active Member Role/Relationship Status Zahra Blanca MD Primary Care Provider Active Team Status: Inactive Member Role/Relationship Status Zahra Blanca MD Primary Care Provider Active St art: September 20, 2024 End: September 20, 2024 Jose Blanca MD Referring Provider Active Start : September 20, 2024 End: September 20, 2024 Petra Goncalves CNM Attending Provider Active S tart: September 20, 2024 End: September 20, 2024 Team Status: Inactive Member Role/Relationship Status Zahra Blanca MD Primary Care Provider Active St art: September 20, 2024 End: September 20, 2024 Petra Goncalves CNM Attending Provider Active S tart: September 20, 2024 End: September 20, 2024 Petra Goncalves CNM Referring Provider Active S tart: September 20, 2024 End: September 20, 2024 Team Status: Inactive Member Role/Relationship Status Zahra Blanca MD Primary Care Provider Active St art: October 23, 2024 End: October 23, 2024 Jose Blanca MD Referring Provider Active Start : October 23, 2024 End: October 23, 2024 Dr. Kaleigh Milner DO Attending Provider Activ e Start: October 23, 2024 End: October 23, 2024 Team Status: Inactive Member Role/Relationship Status Zahra Blanca MD Primary Care Provider Active St art: November 19, 2024 End: November 19, 2024 Jose Blanca MD Referring Provider Active Start : November 19, 2024 End: November 19, 2024 Dr. Pooja Diop MD Attending Provider Active Start: November 19, 2024 End: November 19, 2024 Team Status: Inactive Member Role/Relationship Status Zahra Blanca MD Primary Care Provider Active St art: December 18, 2024 End: December 18, 2024 Jose Blanca MD Referring Provider Active Start : December 18, 2024 End: December 18, 2024 Alyse Raza CLOCKMAKER, CLOCKMAKER-C Attending Provider Active Start: December 18, 2024 End: December 18, 2024 Team Status: Inactive Member Role/Relationship Status Zahra Blanca MD Primary Care Provider Active St art: January 15, 2025 End: January 15, 2025 Jose Blanca MD Referring Provider Active Start : January 15, 2025 End: January 15, 2025 Dr. Pooja Diop MD Attending Provider Active Start: January 15, 2025 End: January 15, 2025 Team Status: Active Member Role/Relationship Status Zahra Blanca MD Primary Care Provider Active St art: January 15, 2025 Alyse Raza CLOCKMAKER, CLOCKMAKER-C Attending Provider Active Start: January 15, 2025 Team Status: Active Member Role/Relationship Status Zahra Blanca MD Primary care physician Active Team Status: Inactive Member Role/Relationship Status Zahra Blanca MD Primary care physician Active S tart: October 23, 2024 End: October 23, 2024 Jose Blanca MD Referring Provider Active Start : October 23, 2024 End: October 23, 2024 Dr. Kaleigh Milner DO Attending physician Acti ve Start: October 23, 2024 End: October 23, 2024 Team Status: Inactive Member Role/Relationship Status Zahra Blanca MD Primary care physician Active S tart: November 19, 2024 End: November 19, 2024 Jose Blanca MD Referring Provider Active Start : November 19, 2024 End: November 19, 2024 Dr. Pooja Diop MD Attending physician Active Start: November 19, 2024 End: November 19, 2024 Team Status: Inactive Member Role/Relationship Status Zahra Blanca MD Primary care physician Active S tart: December 18, 2024 End: December 18, 2024 Jose Blanca MD Referring Provider Active Start : December 18, 2024 End: December 18, 2024 Alyse Luz Marina CLOCKMAKER, CLOCKMAKER-C Attending physician Active Start: December 18, 2024 End: December 18, 2024 Team Status: Inactive Member Role/Relationship Status Zahra Blanca MD Primary care physician Active S tart: January 15, 2025 End: January 15, 2025 Jose Blanca MD Referring Provider Active Start : January 15, 2025 End: January 15, 2025 Dr. Pooja Diop MD Attending physician Active Start: January 15, 2025 End: January 15, 2025 Team Status: Inactive Member Role/Relationship Status Zahra Blanca MD Primary care physician Active S tart: January 15, 2025 End: January 15, 2025 Alyse Raza CLOCKMAKER, CLOCKMAKER-C Attending physician Active Start: January 15, 2025 End: January 15, 2025 Team Status: Inactive Member Role/Relationship Status Zahra Blanca MD Primary care physician Active S tart: February 05, 2025 End: February 05, 2025 Jose Blanca MD Referring Provider Active Start : February 05, 2025 End: February 05, 2025 Alyse Raza NP, CLOCKMAKER-C Attending physician Active Start: February 05, 2025 End: February 05, 2025 Team Status: Inactive Member Role/Relationship Status Zahra Blanca MD Primary care physician Active S tart: November 19, 2024 End: November 19, 2024 Jose Blanca MD Referring Provider Active Start : November 19, 2024 End: November 19, 2024 Dr. Pooja Diop MD Attending physician Active Start: November 19, 2024 End: November 19, 2024 Team Status: Inactive Member Role/Relationship Status Zahra Blanca MD Primary care physician Active S tart: December 18, 2024 End: December 18, 2024 Jose Blanca MD Referring Provider Active Start : December 18, 2024 End: December 18, 2024 Alyse Raza NP, CLOCKMAKER-C Attending physician Active Start: December 18, 2024 End: December 18, 2024 Team Status: Inactive Member Role/Relationship Status Zahra Blanca MD Primary care physician Active S tart: January 15, 2025 End: January 15, 2025 Jose Blanca MD Referring Provider Active Start : January 15, 2025 End: January 15, 2025 Dr. Pooja Diop MD Attending physician Active Start: January 15, 2025 End: January 15, 2025 Team Status: Inactive Member Role/Relationship Status Zahra Blanca MD Primary care physician Active S tart: January 15, 2025 End: January 15, 2025 Alyse Raza NP CLOCKMAKER-C Attending physician Active Start: January 15, 2025 End: January 15, 2025 Team Status: Inactive Member Role/Relationship Status Zahra Blanca MD Primary care physician Active S tart: February 05, 2025 End: February 05, 2025 Jose Blnaca MD Referring Provider Active Start : February 05, 2025 End: February 05, 2025 Alyse Raza NP CL[employer]MAKER-C Attending physician Active Start: February 05, 2025 End: February 05, 2025 Team Status: Inactive Member Role/Relationship Status Zahra Blanca MD Primary care physician Active S tart: February 22, 2025 End: February 22, 2025 Jose Blanca MD Referring Provider Active Start : February 22, 2025 End: February 22, 2025 Dr. Pooja Diop MD Attending physician Active Start: February 22, 2025 End: February 22, 2025 FOR RECORDS PERTAINING TO PATIENTS WHO ARE OR HAVE BEEN ENROLLED IN A CHEMICAL DEPENDENCY/SUBSTANCEABUSE PROGRAM, SOME INFORMATION MAY BE OMITTED. This clinical summary was aggregated from multiple sources. Caution should be exercised in using it in the provision of clinical care. This summary normalizes information from multiple sources, and as a consequence, information in this document may materially change the coding, format and clinical context of patient data. In addition, data may be omitted in some cases. CLINICAL DECISIONS SHOULD BE BASED ON THE PRIMARY CLINICAL RECORDS. [facility] [employer] [facility]. provides no warranty or guarantee of the accuracy or completeness of information in this document.
--- OUTSIDE RECORDS SUMMARY | 2025-04-19 06:18 | XMS RPT_ITS | CCD ---
Author Organization [facility] Care Team Providers Care Oil Developer Name Role Phone Dr. Astrid Guerrero Primary Care Provider [phone] Dr. Astrid Guerrero Referring Provider [phone] Chepe EPSTEIN, PURCHASING ENGINEER-C Amanda Attending Provider DO Renata Lundy Primary Care Provider DO Renata Lundy Referring Provider BEATRIS Mccoy Attending Provider Jose Blanca MD Primary Care Provider Jose Blanca MD Referring Provider Petra Goncalves CNM Attending Provider Petra Goncalves CNM Referring Provider Dr. Kaleigh Milner DO Attending Provider Dr. Pooja Diop MD Attending Provider KALEIGH PERSAUD Referring Unavailab CHARMAINE Deal Attending [...] Unavailable Geoffrey, Chalon Referring Unavailable Luz Marina PURCHASING ENGINEER, Alyse Attending Unavailable Geoffrey, Chalon Referring Unavailable Geoffrey, Chalon Primary Care Unavailable Pooja Diop Attending Unavailable Geoffrey, Chalon Referring Unavailable Geoffrey, Chalon Primary Care Unavailable Petra Goncalves Attending Unavailable Geoffrey, Chalon Referring Unavailable Geoffrey, Chalon Primary Care Unavailable Petra Goncalves Attending Unavailable Geoffrey, Chalon Referring Unavailable Geoffrey, Chalon Primary Care Unavailable Petra Goncalves Attending Unavailable Geoffrey, Chalon Primary Care Unavailable Geoffrye, Chalon Referring Unavailable Geoffrey, Chalon Primary Care Unavailable Kaleigh Milner Attending Unavailabl e Geoffrey, Chalon Referring Unavailable Geoffrey, Chalon Primary Care Unavailable Pooja Diop Attending Unavailable Geoffrey, Chalon Referring Unavailable Sacha, Petra Attending Unavailable Sacha, Petra Referring Unavailable Geoffrey, Chalon Primary Care Unavailable Geoffrey, Chalon Primary Care Unavailable Luz Marina PURCHASING ENGINEER, Alyse Attending Unavailable Geoffrey, Chalon Primary Care Unavailable Luz Marina PURCHASING ENGINEER, Alyse Attending Unavailable Geoffrey, Chalon Referring Unavailable [...] Fluticasone Propionate (Flonase Allergy Relief) 50 mcg/actuation Ruskin,Suspension Active 1 NMA INTRANASAL NEEDED as needed for allergies September 03, 2021 12:00am Complies with drug therapy Start: 09-03-2021 Fluticasone Pr opionate (Flonase Allergy Relief) 50 mcg/actuation Ruskin,Suspension Active 1 SPRAY INTRANASAL NEEDED September 03, 2021 12:00am Mv-Mins 31-Loeu-Rlnsb No.1-D nixon (Pnv-Belvidere) 28-1-300 mg capsule (9 sources) Start: 08-31-2024 Mv-Mins 71-Iro n-Folic No.1-Dha (Pnv-[place]) 28-1-300 mg capsule Active NMA PO August 31, 2024 12:00am Complies with drug therapy Start: 08-31-2024 Mv-Mins 71-Iro n-Folic No.1-Dha (Pnv-[place]) 28-1-300 mg capsule Active NMA PO August 31, 2024 12:00am Prenat.Vits,Palomo,Urn-Vpwz-Qtj ic (5 sources) Start: 06-29-2019 take 1 tablet by mouth once daily Prenat.Vits,Palomo,Zyj-Xwqs-Pykjf Active 1 TABLET PO DAILY June 29, 2019 6:33pm Start: 06-29-2019 take 1 tablet by kelli th once daily Prenat.Vits,Palomo,Lbn-Hkrt-Eluah Active 1 TABLET PO DAILY June 29, [...] (9 sources) Start: 06-29-2019 End: 08-31-2024 Prenat.Vits,Palomo,Mi o-Mlyj-Edquz tablet Discontinued 1 {tbl} PO DAILY June [...] with any PRR (waiting on gcc) , DONYN 04/21/25, DANNY Alan Tamar Tyrone PRR, , [...] Test Name Value Interpretation Reference Range Facility Train Driver Office Visit Reporton 03-19-2025 Train Driver Office Visit Report [facility] [address], [address] [place] [address] OFFICE VISIT Date of Service: 03/19/25 MR#: [id number] Acct: [id number] Name: GIULIA HOGUE Rep #: [id number] : 1990 Provider: BEATRIS Ho ams Age/Sex: 34/F [place] [facility] [place]: Signed Intake Vital Signs 12/18/24 08:25 01/15/25 09:15 03/08/25 15:12 03/19/25 09:34 03/19/25 09:34 Height 5 ft 4 in 5 ft 4 in 5 ft 4 in 5 ft 4 in 5 ft 4 in Weight: 185 lb 2 oz BMI 31.7 BP 108/71 Intake Visit Reasons: 34 wk ob Rounder Hand Required: No Is patient in pain?: No [...] mg-folate no.1 1 mg-dha 300 mg capsule (PNV-Belvidere) Last Menstrual Period: 07/15/24 Zika: Zika virus [...] 2 current occupational status: employed 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 -???- (more content not included)... [facility] Train [facility] Office Visit Reporton 03-08-2025 Train Driver Office Visit Report [facility] [address], [address] [place] [address] OFFICE VISIT Date of Service: 03/08/25 MR#: [id number] Acct: [id number] Name: GIULIA HOGUE Rep #: [id number] : 1990 Provider: BEATRIS Ho ams Age/Sex: 34/F [place] [facility] [place]: Signed Intake Vital Signs 12/18/24 08:25 02/22/25 09:01 03/08/25 15:12 Height 5 ft 4 in 5 ft 4 in 5 ft 4 in Weight: 183 lb 3 oz BMI 31.4 BP 123/77 H Intake Visit Reasons: 32 wk ob Chief Complaint: 32wk OB Rounder Hand Required: No Is patient in pain?: No [...] mg-folate no.1 1 mg-dha 300 mg capsule (PNV-Belvidere) Last Menstrual Period: 07/15/24 : No Have [...] 2 current occupational status: employed 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 Normal [facility] - Chemistry and C hemistry - challengeOrdered By: Pooja Diop on 02-22-2025 Glucose Ql (U) Negative [facility] - UrinalysisOrder ed By: Pooja Diop on 02-22-2025 Protein Ql (U) Negative [facility] Train Driver Office Visit Reporton 02-22-2025 Train Driver Office Visit Report [facility] [address], [address] [place] [address] OFFICE VISIT Date of Service: 02/22/25 MR#: [id number] Acct: [id number] Name: GIULIA HOGUE Rep #: [id number] : 1990 Provider: Dr. 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 Normal [facility] - Chemistry and C hemistry - challengeOrdered By: Alyse Raza on 02-05-2025 Glucose Ql (U) Negative [facility] - UrinalysisOrder ed By: Alyse Raza on 02-05-2025 Protein Ql (U) Negative [facility] Train Driver Office Visit Reporton 02-05-2025 Train Driver Office Visit Report [facility], [address] [place] [address] OFFICE VISIT Date of Service: 02/05/25 MR#: [id number] Acct: [id number] Name: GIULIA HOGUE Rep #: [id number] : 1990 Provider: JEFFY guerrero Age/Sex: 34/F [place] [facility] [place]: Signed Intake Vital Signs 11/19/24 15:18 01/15/25 09:15 02/05/25 09:33 02/05/25 09:37 Height 5 ft 4 in 5 ft 4 in 5 ft 4 in 5 ft 4 in Weight: 175 lb 4 oz 179 lb 4 oz BMI 30.0 30.7 BP 109/73 112/71 Intake Visit Reasons: 28 wk ob Chief Complaint: 28 Week OB Rounder Hand Required: No Is patient in pain?: No [...] mg-folate no.1 1 mg-dha 300 mg capsule (PNV-Belvidere) Last Menstrual Period: 07/15/24 Zika: Zika virus [...] 2 current occupational status: employed 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 -???-?? (more content not included)... [facility] Absolute lymphocyte countOrd ered By: Alyse Raza on 01-15-2025 Lymphocytes Auto (Unsp spec) [#/Vol] 0.64 10*3/uL Low 0.83-4.51 [facility] Absolute neutrophil countOrd ered By: Alyse Raza on 01-15-2025 Neutrophils (Bld) [#/Vol] 7.2 10*3/uL 2.0-7.7 [facility] Automated lymphocyte count a s percentage of total leukocytesOrdered By: Alyse Raza on 01-15-2025 Lymphocytes/100 WBC Auto (Unsp spec) 7.5 % Low 19-41 [facility] Basophil percentageOrdered B y: Alyse Raza on 01-15-2025 Basophils/100 WBC (Bld) 0.3 % 0-1 [facility] CBC W/Diff, Automatedon Absolute Lymph 0.64 X10 3/uL Low 0.83-4.51 [facility] Comment on above: Performed By: #### L 3890.6006, L509.8002, L501.0250, L100.0100 ####[facility] [address] [place], [address] Absolute Neut 7.2 X10 3/uL Normal 2.0-7.7 [facility] Comment on above: Performed By: #### L 3890.6006, L509.8002, L501.0250, L100.0100 ####[facility] [address] [place], [address] Basophils/100 WBC (Bld) 0.3 % Normal 0-1 [facility] Comment on above: Performed By: #### L 3890.6006, L509.8002, L501.0250, L100.0100 ####[facility] [address] [place], [address] Eosinophils/100 WBC (Bld) 0.2 % Normal 0-5 [facility] Comment on above: Performed By: #### L 3890.6006, L509.8002, L501.0250, L100.0100 ####[facility] [address] [place], [address] Erythrocyte distribution width (RBC) [Ratio] 13.1 % Normal 11.6-14.6 [facility] Comment on above: Performed By: #### L 3890.6006, L509.8002, L501.0250, L100.0100 ####[facility] [address] [place], [address] Hematocrit (Bld) [Volume fraction] 34.7 % Low 37-47 [facility] Comment on above: Performed By: #### L 3890.6006, L509.8002, L501.0250, L100.0100 ####[facility] [address] [place], [address] Hemoglobin (Bld) [Mass/Vol] 11.6 g/dL Low 12.0-15.0 [facility] Comment on above: Performed By: #### L 3890.6006, L509.8002, L501.0250, L100.0100 ####[facility] [address] [place], [address] IG% 0.500 Normal 0.0-0.9 [facility] Comment on above: Result Comment: IG% - Immature Granulocytes (promyelocytes, myelocytes and metamyelocytes) > 1% indicates that a LEFT SHIFT is Present. Performed By: #### L 3890.6006, L509.8002, L501.0250, L100.0100 ####[facility] [address] [place], [address] Lymphocytes/100 WBC (Bld) 7.5 % Low 19-41 [facility] Comment on above: Performed By: #### L 3890.6006, L509.8002, L501.0250, L100.0100 ####[facility] [address] [place], [address] MCH (RBC) [Entitic mass] 32.1 pg High 27.0-32.0 [facility] Comment on above: Performed By: #### L 3890.6006, L509.8002, L501.0250, L100.0100 ####[facility] [address] [place], [address] MCHC (RBC) [Mass/Vol] 33.4 g/dL Normal 32-36 [facility] Comment on above: Performed By: #### L 3890.6006, L509.8002, L501.0250, L100.0100 ####[facility] [address] [place], [address] MCV (RBC) [Entitic vol] 96.1 fL Normal 81-99 [facility] Comment on above: Performed By: #### L 3890.6006, L509.8002, L501.0250, L100.0100 ####[facility] [address] [place], [address] Monocytes/100 WBC (Bld) 8.1 % Normal 0-10 [facility] Comment on above: Performed By: #### L 3890.6006, L509.8002, L501.0250, L100.0100 ####[facility] [address] [place], [address] Neutrophils/100 WBC (Bld) 83.4 % High 47-70 [facility] Comment on above: Performed By: #### L 3890.6006, L509.8002, L501.0250, L100.0100 ####[facility] [address] [place], [address] Nucleated RBC (Bld) [#/Vol] 0 10*3/uL Normal 0-5 [facility] Comment on above: Performed By: #### L 3890.6006, L509.8002, L501.0250, L100.0100 ####[facility] [address] [place], [address] Platelet mean volume (Bld) [Entitic vol] 9.9 fL Normal 6.2-12.0 [facility] Comment on above: Performed By: #### L 3890.6006, L509.8002, L501.0250, L100.0100 ####[facility] [address] [place], [address] Platelets (Bld) [#/Vol] 300 10*3/uL Normal 150-450 [facility] Comment on above: Performed By: #### L 3890.6006, L509.8002, L501.0250, L100.0100 ####[facility] [address] [place], [address] RBC (Bld) [#/Vol] 3.61 10*6/uL Low 4.2-5.4 [facility] Comment on above: Performed By: #### L 3890.6006, L509.8002, L501.0250, L100.0100 ####[facility] [address] [place], [address] RDW SD 46.6 fl High 35.1-43.9 [facility] Comment on above: Performed By: #### L 3890.6006, L509.8002, L501.0250, L100.0100 ####[facility] [address] [place], [address] WBC (Bld) [#/Vol] 8.6 10*3/uL Normal 4.4-11.0 [facility] Comment on above: Performed By: #### L 3890.6006, L509.8002, L501.0250, L100.0100 ####[facility] [address] [place], [address] Eosinophil percentageOrdered By: Alyse Raza on 01-15-2025 Eosinophils/100 WBC (Bld) 0.2 % 0-5 [facility] Erythrocyte distribution wid th ratioOrdered By: Alysecathy Raza on 01-15-2025 Erythrocyte distribution width (RBC) [Ratio] 13.1 % 11.6-14.6 [facility] Erythrocyte distribution wid th standard deviationOrdered By: Alyse [place] on 01-15-2025 Erythrocyte distribution width (RBC) [Ratio] 46.6 fl High 35.1-43.9 [facility] Glucose Challenge Gest 1H 50 coy 01-15-2025 GLU GEST 50g 1H 104 mg/dL Normal 70-140 [facility] Comment on above: Performed By: #### L 3890.6006, L509.8002, L501.0250, L100.0100 ####[facility] [address] [place], [address] Glucose measurement at 2 chelsea rs post-dose gestational glucose tolerance testOrdered By: Alyse Raza on 01-15-2025 Glucose [Mass/Vol] 104 mg/dL 70-140 [facility] HIVon 01-15-2025 HIV Non-Reactive Normal Nonreactive [facility] Comment on above: Result Comment: Non- Reactive Reactive Repeatedly reactive samples must be confirmed according to CDC recommended confirmatory algorithms. The subresults for either HIVAG or AHIV can be used as an aid in the selection of the confirmation algorithm for reactive samples. Send out specimens with Reactive results to [facility] for confirmation. Order the HIV antibody detection and differentiation: #[id number] Performed By: #### L 3890.6006, L509.8002, L501.0250, L100.0100 ####[facility] [address] [place], [address] Hematocrit Auto (Bld) [Volum e fraction]Ordered By: Alyse Raza on 01-15-2025 Hematocrit (Bld) [Volume fraction] 34.7 % Low 37-47 [facility] Hemoglobin measurementOrdere d By: Alyse Raza on 01-15-2025 Hemoglobin (Bld) [Mass/Vol] 11.6 g/dL Low 12.0-15.0 [facility] Immature granulocytes/100 WB C Auto (Bld)Ordered By: Alyse Raza on 01-15-2025 Immature granulocytes/100 WBC (Bld) 0.500 % 0.0-0.9 [facility] Comment on above: IG% - Immature Granu locytes (promyelocytes, myelocytes and metamyelocytes) > 1% indicates that a LEFT SHIFT is Present. Laboratory - Chemistry and C hemistry - challengeOrdered By: Pooja Diop on 01-15-2025 Glucose Ql (U) Negative [facility] - UrinalysisOrder ed By: Pooja Diop on 01-15-2025 Protein Ql (U) Negative [facility] MCV (mean corpuscular volume ) determinationOrdered By: Alyse Raza on 01-15-2025 MCV (RBC) [Entitic vol] 96.1 fL 81-99 [facility] Mean corpuscular hemoglobin (MCH) determinationOrdered By: Alyse Raza on 01-15-2025 MCH (RBC) [Entitic mass] 32.1 pg High 27.0-32.0 [facility] Mean corpuscular hemoglobin concentration (MCHC) determinationOrdered By: Alyse Raza on 01-15-2025 MCHC (RBC) [Mass/Vol] 33.4 g/dL 32-36 [facility] Mean platelet volume determi nationOrdered By: Alyse Raza on 01-15-2025 Platelet mean volume (Bld) [Entitic vol] 9.9 fL 6.2-12.0 [facility] Monocyte percentageOrdered B y: Alyse Raza on 01-15-2025 Monocytes/100 WBC (Bld) 8.1 % 0-10 [facility] Neutrophil percentageOrdered By: Alyse Raza on 01-15-2025 Neutrophils/100 WBC (Bld) 83.4 % High 47-70 [facility] No Panel InformationOrdered By: Alyse Raza on 01-15-2025 HIV (1&2) Antibody Non-Reactive Nonreactive [facility] Comment on above: Non-ReactiveReactive Repeatedly reactive samples must be confirmed according to CDC recommended confirmatory algorithms. The subresults for either HIVAG or AHIV can be used as an aid in the selection of the confirmation algorithm for reactive samples.Send out specimens with Reactive results to [facility] for confirmation.Order the HIV antibody detection and differentiation: #[id number] Nucleated red blood cell per centageOrdered By: Alyse Raza on 01-15-2025 Nucleated RBC/100 WBC (Bld) [Ratio] 0 % 0-5 [facility] Train Driver Office Visit Reporton 01-15-2025 Train Driver Office Visit Report [facility] [address], [address] [place] [address] OFFICE VISIT Date of Service: 01/15/25 MR#: [id number] Acct: [id number] Name: GIULIA HOGUE Rep #: [id number] : 1990 Provider: Dr. 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 [facility] Platelet countOrdered By: Shakeel Raza on 01-15-2025 Platelets (Bld) [#/Vol] 300 10*3/uL 150-450 [facility] RBC Auto (Bld) [#/Vol]Ordere d By: Alyse Raza on 01-15-2025 RBC (Bld) [#/Vol] 3.61 10*6/uL Low 4.2-5.4 [facility] Syphilis Antibodieson 2024 Syphilis Abs Non-Reactive Normal Nonreactive [facility] Comment on above: Performed By: #### L 3890.6006, L509.8002, L501.0250, L100.0100 ####[facility] [address] [place], [address] White blood cell (WBC) count Ordered By: Alyse Raza on 01-15-2025 WBC (Bld) [#/Vol] 8.6 10*3/uL 4.4-11.0 [facility] Laboratory - Chemistry and C hemistry - challengeOrdered By: Alyse Raza on 12-18-2024 Glucose Ql (U) Negative [facility] - UrinalysisOrder ed By: Alyse Raza on 12-18-2024 Protein Ql (U) Negative [facility] Train Driver Office Visit Reporton 12-18-2024 Train Driver Office Visit Report [facility]'[address], [address] [place] [address] OFFICE VISIT Date of Service: 12/18/24 MR#: [id number] Acct: [id number] Name: GIULIA HOGUE Kristine Rep #: [id number] : 1990 Provider: JEFFY guerrero Age/Sex: 34/F [place] [facility] Status: Signed Intake Vital Signs 10/23/24 10:21 11/19/24 15:18 12/18/24 08:25 Height 5 ft 4 in 5 ft 4 in 5 ft 4 in Weight: 172 lb 6 oz BMI 29.5 BP 112/77 Intake Visit Reasons: 22 wk ob Rounder Hand Required: No Is patient in pain?: No [...] mg-folate no.1 1 mg-dha 300 mg capsule (PNV-Belvidere) Last Menstrual Period: 07/15/24 Zika: Zika virus [...] 2 current occupational status: employed 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 (more content not included)... Normal [facility] - Chemistry and C hemistry - challengeOrdered By: Pooja Diop on 11-19-2024 Glucose Ql (U) Negative [facility] - UrinalysisOrder ed By: Pooja Diop on 11-19-2024 Protein Ql (U) Negative [facility] Train Driver Office Visit Reporton 11-19-2024 Train Driver Office Visit Report [facility] [address], [address] [place] [address] OFFICE VISIT Date of Service: 11/19/24 MR#: [id number] Acct: [id number] Name: GIULIA HOGUE Rep #: [id number] : 1990 Provider: Dr. 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 -???-??? (more content not included)... Normal [facility] - Chemistry and C hemistry - challengeOrdered By: Kaleigh Dietz on 10-23-2024 Glucose Ql (U) Negative [facility] - UrinalysisOrder ed By: Kaleigh Dietz on 10-23-2024 Protein Ql (U) Negative [facility] Train Driver Office Visit Reporton 10-23-2024 Train Driver Office Visit Report [facility] [address], [address] [place] [address] OFFICE VISIT Date of Service: 10/23/24 MR#: [id number] Acct: [id number] Name: GIULIA HOGUE Rep #: [id number] : 1990 Provider: Dr. 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 - (more content not included)... [facility] Chlamydia/GC KENYETTA aptimaon CHLAMY,NUC ACID Negative Normal Negative [facility] Comment on above: Performed By: #### L 7000.1800, M100.2200 #### [facility] [place], [address] GC BY NUC ACID Negative Normal Negative [facility] Comment on above: Result Comment: Perf ormed at: =G - [facility] [address] [place] [id number] Roofing Foreman: Patti Howell MD, Phone: [phone] Performed By: #### L 7000.1800, M100.2200 #### [facility] [address] [place], [place], [id number] Urine Cultureon 09-21-2024 [facility] Culture exhibits no growth. Normal [facility] Comment on above: Performed By: #### L 7000.1800, M100.2200 #### [facility] [address] [place], [place], [id number] Absolute lymphocyte countOrd ered By: Petra Goncalves on 09-20-2024 Lymphocytes Auto (Unsp spec) [#/Vol] 1.19 10*3/uL 0.83-4.51 [facility] Absolute neutrophil countOrd ered By: Petra Goncalves on 09-20-2024 Neutrophils (Bld) [#/Vol] 8.3 10*3/uL High 2.0-7.7 [facility] Automated lymphocyte count a s percentage of total leukocytesOrdered By: Petra Goncalves on 09-20-2024 Lymphocytes/100 WBC Auto (Unsp spec) 11.5 % Low 19-41 [facility] Basophil percentageOrdered B y: Petra Goncalves on 09-20-2024 Basophils/100 WBC (Bld) 0.3 % 0-1 [facility] CBC W/Diff, Automatedon 09-06 Absolute Lymph 1.19 X10 3/uL Normal 0.83-4.51 [facility] Comment on above: Performed By: #### L 100.0100, BTS, L509.4006, L3890.6102, L500.4100, L3890.6006, L3890.6301, L509.8002 #### [facility] [address] [place], [place], [id number] Absolute Neut 8.3 X10 3/uL High 2.0-7.7 [facility] Comment on above: Performed By: #### L 100.0100, BTS, L509.4006, L3890.6102, L500.4100, L3890.6006, L3890.6301, L509.8002 #### [facility] [address] [place], [address] Basophils/100 WBC (Bld) 0.3 % Normal 0-1 [facility] Comment on above: Performed By: #### L 100.0100, BTS, L509.4006, L3890.6102, L500.4100, L3890.6006, L3890.6301, L509.8002 #### [facility] [address] [place], [address] Eosinophils/100 WBC (Bld) 0.3 % Normal 0-5 [facility] Comment on above: Performed By: #### L 100.0100, BTS, L509.4006, L3890.6102, L500.4100, L3890.6006, L3890.6301, L509.8002 #### [facility] [address] [place], [address] Erythrocyte distribution width (RBC) [Ratio] 12.6 % Normal 11.6-14.6 [facility] Comment on above: Performed By: #### L 100.0100, BTS, L509.4006, L3890.6102, L500.4100, L3890.6006, L3890.6301, L509.8002 #### [facility] [address] [place], [address] Hematocrit (Bld) [Volume fraction] 37.2 % Normal 37-47 [facility] Comment on above: Performed By: #### L 100.0100, BTS, L509.4006, L3890.6102, L500.4100, L3890.6006, L3890.6301, L509.8002 #### [facility] [address] [place], [address] Hemoglobin (Bld) [Mass/Vol] 12.4 g/dL Normal 12.0-15.0 [facility] Comment on above: Performed By: #### L 100.0100, BTS, L509.4006, L3890.6102, L500.4100, L3890.6006, L3890.6301, L509.8002 #### [facility] [address] [place], [address] IG% 0.500 Normal 0.0-0.9 [facility] Comment on above: Result Comment: IG% - Immature Granulocytes (promyelocytes, myelocytes and metamyelocytes) > 1% indicates that a LEFT SHIFT is Present. Performed By: #### L 100.0100, BTS, L509.4006, L3890.6102, L500.4100, L3890.6006, L3890.6301, L509.8002 #### [facility] [address] [place], [address] Lymphocytes/100 WBC (Bld) 11.5 % Low 19-41 [facility] Comment on above: Performed By: #### L 100.0100, BTS, L509.4006, L3890.6102, L500.4100, L3890.6006, L3890.6301, L509.8002 #### [facility] [address] [place], [address] MCH (RBC) [Entitic mass] 30.2 pg Normal 27.0-32.0 [facility] Comment on above: Performed By: #### L 100.0100, BTS, L509.4006, L3890.6102, L500.4100, L3890.6006, L3890.6301, L509.8002 #### [facility] [address] [place], [address] MCHC (RBC) [Mass/Vol] 33.3 g/dL Normal 32-36 [facility] Comment on above: Performed By: #### L 100.0100, BTS, L509.4006, L3890.6102, L500.4100, L3890.6006, L3890.6301, L509.8002 #### [facility] [address] [place], [address] MCV (RBC) [Entitic vol] 90.5 fL Normal 81-99 [facility] Comment on above: Performed By: #### L 100.0100, BTS, L509.4006, L3890.6102, L500.4100, L3890.6006, L3890.6301, L509.8002 #### [facility] [address] [place], [address] Monocytes/100 WBC (Bld) 7.5 % Normal 0-10 [facility] Comment on above: Performed By: #### L 100.0100, BTS, L509.4006, L3890.6102, L500.4100, L3890.6006, L3890.6301, L509.8002 #### [facility] [address] [place], [address] Neutrophils/100 WBC (Bld) 79.9 % High 47-70 [facility] Comment on above: Performed By: #### L 100.0100, BTS, L509.4006, L3890.6102, L500.4100, L3890.6006, L3890.6301, L509.8002 #### [facility] [address] [place], [address] Nucleated RBC (Bld) [#/Vol] 0 10*3/uL Normal 0-5 [facility] Comment on above: Performed By: #### L 100.0100, BTS, L509.4006, L3890.6102, L500.4100, L3890.6006, L3890.6301, L509.8002 #### [facility] [address] [place], [address] Platelet mean volume (Bld) [Entitic vol] 9.8 fL Normal 6.2-12.0 [facility] Comment on above: Performed By: #### L 100.0100, BTS, L509.4006, L3890.6102, L500.4100, L3890.6006, L3890.6301, L509.8002 #### [facility] [address] [place], [address] Platelets (Bld) [#/Vol] 322 10*3/uL Normal 150-450 [facility] Comment on above: Performed By: #### L 100.0100, BTS, L509.4006, L3890.6102, L500.4100, L3890.6006, L3890.6301, L509.8002 #### [facility] [address] [place], [address] RBC (Bld) [#/Vol] 4.11 10*6/uL Low 4.2-5.4 [facility] Comment on above: Performed By: #### L 100.0100, BTS, L509.4006, L3890.6102, L500.4100, L3890.6006, L3890.6301, L509.8002 #### [facility] [address] [place], [address] RDW SD 41.7 fl Normal 35.1-43.9 [facility] Comment on above: Performed By: #### L 100.0100, BTS, L509.4006, L3890.6102, L500.4100, L3890.6006, L3890.6301, L509.8002 #### [facility] [address] [place], [address] WBC (Bld) [#/Vol] 10.3 10*3/uL Normal 4.4-11.0 [facility] Comment on above: Performed By: #### L 100.0100, BTS, L509.4006, L3890.6102, L500.4100, L3890.6006, L3890.6301, L509.8002 #### [facility] [address] [place], [place], [id number] Calculated very low density lipoprotein (VLDL) cholesterol measurementOrdered By: Petra Goncalves on 09-20-2024 Calculated very low density lipoprotein (VLDL) cholesterol measurement 24 mg/dL 5-40 [facility] Chlamydia trachomatis rRNA d etection by probe and target amplification methodOrdered By: Petra Goncalves on 09-20-2024 C. trachomatis rRNA KENYETTA+probe Ql (Unsp spec) Negative Negative [facility] Eosinophil percentageOrdered By: Petra Goncalves on 09-20-2024 Eosinophils/100 WBC (Bld) 0.3 % 0-5 [facility] Erythrocyte distribution wid th ratioOrdered By: Petra Goncalves on 09-20-2024 Erythrocyte distribution width (RBC) [Ratio] 12.6 % 11.6-14.6 [facility] Erythrocyte distribution wid th standard deviationOrdered By: Petra Goncalves on 09-20-2024 Erythrocyte distribution width (RBC) [Ratio] 41.7 fl 35.1-43.9 [facility] HIVon 09-20-2024 HIV Non-Reactive Normal Nonreactive [facility] Comment on above: Result Comment: Non- Reactive Reactive Repeatedly reactive samples must be confirmed according to CDC recommended confirmatory algorithms. The subresults for either HIVAG or AHIV can be used as an aid in the selection of the confirmation algorithm for reactive samples. Send out specimens with Reactive results to [facility] for confirmation. Order the HIV antibody detection and differentiation: lc#[id number] Performed By: #### L 100.0100, BTS, L509.4006, L3890.6102, L500.4100, L3890.6006, L3890.6301, L509.8002 #### [facility] [address] [place], [place], [address] Hematocrit Auto (Bld) [Volum e fraction]Ordered By: Petra Goncalves on 09-20-2024 Hematocrit (Bld) [Volume fraction] 37.2 % 37-47 [facility] Hemoglobin measurementOrdere d By: Petra Goncalves on 09-20-2024 Hemoglobin (Bld) [Mass/Vol] 12.4 g/dL 12.0-15.0 [facility] Hepatitis C Antibodyon 09-20 Hepatitis C Ab Non-Reactive Normal Nonreactive [facility] Comment on above: Result Comment: Reac tive: Presumptive evidence of antibodies to HCV. Follow CDC recommendations for supplemental testing. Non-Reactive: Antibodies to HCV were not detected; does not exclude the possibility of exposure to HCV Reactive Results are presumptive evidence of antibodies to HCV. Follow CDC recommendations for supplemental testing. Order confirmation testing: HCV Quant by PCR testing - HCVPCR #[id number] Non Reactive: < 0.8 Equivocal: >/= 0.8 to < 1.0 Reactive: >/= 1.0 The [facility] requires that a reactive/equivocal HCV antibody result be sent out for confirmation. HCV Quant by PCR testing. Performed By: #### L 100.0100, BTS, L509.4006, L3890.6102, L500.4100, L3890.6006, L3890.6301, L509.8002 ####[facility] [id number] [place], [address] Immature granulocytes/100 WB C Auto (Bld)Ordered By: Petra Goncalves on 09-20-2024 Immature granulocytes/100 WBC (Bld) 0.500 % 0.0-0.9 [facility] Comment on above: IG% - Immature Granu locytes (promyelocytes, myelocytes and metamyelocytes) > 1% indicates that a LEFT SHIFT is Present. L3890.6102on 09-20-2024 HEP B Surf Ag Non-Reactive Normal Nonreactive [facility] Comment on above: Result Comment: Reac tive: Presumptive evidence of HBV. Repeatedly reactive samples must be confirmed using a neutralization test ([employer] HBsAg Confirmatory Test) Non-Reactive: HBsAg not detected; does not exclude the possibility of exposure to HBV Performed By: #### L 100.0100, BTS, L509.4006, L3890.6102, L500.4100, L3890.6006, L3890.6301, L509.8002 ####[facility] [address] [place], [address] L509.4006on 09-20-2024 Rubella IgG REAC Normal Nonreactive [facility] Comment on above: Result Comment: Anti body Result: Interpretation Non-Reactive: Non-Immune Reactive: Immune The following results were obtained with the [employer] Rubella IgG assay. Results from assays of other manufacturers cannot be used interchangeably. Performed By: #### L 100.0100, BTS, L509.4006, L3890.6102, L500.4100, L3890.6006, L3890.6301, L509.8002 #### [facility] [address] [place], [address] LDL calc ser/plasOrdered By: Petra Goncalves on 09-20-2024 Cholesterol in LDL [Mass/Vol] 120 mg/dL [facility] Comment on above: Ldqfrzkghy=583-928 m g/dL & Higher Ubfl=645 mg/dL or greater Laboratory - Microbiology an d Antimicrobial susceptibilityOrdered By: Petra Goncalves on 09-20-2024 HBV surface Ag Ql (S) Non-Reactive Nonreactive [facility] Comment on above: Reactive: Presumptiv e evidence of HBV. Repeatedly reactive samples must be confirmed using a neutralization test ([employer] HBsAg Confirmatory Test)Non-Reactive: HBsAg not detected; does not exclude the possibility of exposure to HBV Lipid Profileon 09-20-2024 CHOL:HDL 3.33 Normal [facility] Comment on above: Performed By: #### L 100.0100, BTS, L509.4006, L3890.6102, L500.4100, L3890.6006, L3890.6301, L509.8002 #### [facility] [address] [place], [place], [id number] Cholesterol [Mass/Vol] 205 mg/dL High <=200 [facility] Comment on above: Result Comment: Chol esterol level, Desirable <200 mg/dL Borderline high cholesterol 200-239 mg/dL High cholesterol >=240 mg/dL Recommendations of the NCEP Adult Treatment Panel for the following risk-cutoff thresholds for the [place] population. Performed By: #### L 100.0100, BTS, L509.4006, L3890.6102, L500.4100, L3890.6006, L3890.6301, L509.8002 #### [facility] [address] [place], [address] Cholesterol in HDL [Mass/Vol] 62 mg/dL Normal [facility] Comment on above: Result Comment: Irma onal Cholesterol Education Program (NCEP) guidelines: <40 mg/dL: Low HDL-cholesterol (major risk factor for CHD) >= 60 mg/dL: High HDL-cholesterol (negative risk factor for CHD) HDL-cholesterol is affected by a number of factors, e.g. smoking, exercise, hormones, sex and age. Performed By: #### L 100.0100, BTS, L509.4006, L3890.6102, L500.4100, L3890.6006, L3890.6301, L509.8002 #### [facility] [address] [place], [address] Cholesterol in LDL [Mass/Vol] 120 mg/dL Normal [facility] Comment on above: Result Comment: Bord hxkbcg=165-540 mg/dL Higher Ljdt=594 mg/dL or greater Performed By: #### L 100.0100, BTS, L509.4006, L3890.6102, L500.4100, L3890.6006, L3890.6301, L509.8002 #### [facility] [address] [place], [address] Cholesterol in VLDL [Mass/Vol] 24 mg/dL Normal 5-40 [facility] Comment on above: Performed By: #### L 100.0100, BTS, L509.4006, L3890.6102, L500.4100, L3890.6006, L3890.6301, L509.8002 #### [facility] [address] [place], [place], [id number] Triglyceride [Mass/Vol] 119 mg/dL Normal [facility] Comment on above: Result Comment: The drugs N-Acetylcysteine and Metamizole may falsely depress this assay. Normal range: <150 mg/dL Borderline High: 150-199 mg/dL High: 200-499 mg/dL Very High: >500 mg/dL Performed By: #### L 100.0100, BTS, L509.4006, L3890.6102, L500.4100, L3890.6006, L3890.6301, L509.8002 #### [facility] [address] [place], [place], [id number] MCV (mean corpuscular volume ) determinationOrdered By: Petra Goncalves on 09-20-2024 MCV (RBC) [Entitic vol] 90.5 fL 81-99 [facility] Mean corpuscular hemoglobin (MCH) determinationOrdered By: Petra Goncalves on 09-20-2024 MCH (RBC) [Entitic mass] 30.2 pg 27.0-32.0 [facility] Mean corpuscular hemoglobin concentration (MCHC) determinationOrdered By: Petra Goncalves on 09-20-2024 MCHC (RBC) [Mass/Vol] 33.3 g/dL 32-36 [facility] Mean platelet volume determi nationOrdered By: Petra Goncalves on 09-20-2024 Platelet mean volume (Bld) [Entitic vol] 9.8 fL 6.2-12.0 [facility] Monocyte percentageOrdered B y: Petra Goncalves on 09-20-2024 Monocytes/100 WBC (Bld) 7.5 % 0-10 [facility] Neisseria gonorrhoeae nuclei c acid detection by amplified probe techniqueOrdered By: Petra Goncalves on 09-20-2024 N. gonorrhoeae DNA KENYETTA+probe Ql (Unsp spec) Negative Negative [facility] Comment on above: Performed at: =[facility] [address] [id number] Director: Patti Howell MD, Phone: [phone] Neutrophil percentageOrdered By: Petra Goncalves on 09-20-2024 Neutrophils/100 WBC (Bld) 79.9 % High 47-70 [facility] No Panel InformationOrdered By: Petra Goncalves on 09-20-2024 HIV (1&2) Antibody Non-Reactive Nonreactive [facility] Comment on above: Non-ReactiveReactive Repeatedly reactive samples must be confirmed according to CDC recommended confirmatory algorithms. 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 Driver Office Visit Report [facility]'[address], [address] [place] [address] OFFICE VISIT Date of Service: 09/20/24 MR#: [id number] Acct: [id number] Name: GIULIA HOGUE Rep #: [id number] : 1990 Provider: BEATRIS Ho ams Age/Sex: 34/F [place] [facility] Status: Signed Intake Vital Signs 08/19/23 14:44 09/20/24 12:59 Height 5 ft 4 in 5 ft 4 in Weight: 161 lb 6 oz BMI 27.6 BP 117/81 H Intake Visit Reasons: New OB, LMP 07/15, DONNY 04/21 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 Hand Required: No Is patient in pain?: No [...] mg-folate no.1 1 mg-dha 300 mg capsule (PNV-[place]) Last Menstrual Period: 07/15/24 : Yes PFSH PFSH Medical History URI (upper respiratory infection) Lab test negative for COVID-19 virus Seasonal allergies Surgical History History of wisdom tooth extraction Family History Father Heart disease Mother Diabetes Other Hypertension Social History adopted: No household members: spouse and children housing: house number of children: 2 service: No current occupational status: employed 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 current occupational exposures/hazards: No pets and animals: [...] physical activity do you participate in: none angel/faith: Quaker seatbelt use: always do you feel safe [...] Menstrual P (more content not included)... Normal [facility] Platelet countOrdered By: Mikel Goncalves on 09-20-2024 Platelets (Bld) [#/Vol] 322 10*3/uL 150-450 [facility] RBC Auto (Bld) [#/Vol]Ordere d By: Petra Goncalves on 09-20-2024 RBC (Bld) [#/Vol] 4.11 10*6/uL Low 4.2-5.4 [facility] Screening total cholesterol/ high density lipoprotein (HDL) cholesterol ratioOrdered By: Petra Goncalves on 09-20-2024 Cholesterol.total/Choles terol in HDL [Mass ratio] 3.33 {ratio} [facility] Serum or plasma cholesterol in HDL measurement (mass/volume)Ordered By: Petra Goncalves on 09-20-2024 Cholesterol in HDL [Mass/Vol] 62 mg/dL >40 [facility] Comment on above: National Cholesterol Education Program (NCEP) guidelines:<40 mg/dL: Low HDL-cholesterol (major risk factor for CHD)>= 60 mg/dL: High HDL-cholesterol (negative risk factor for CHD)HDL-cholesterol is affected by a number of factors, e.g. smoking, exercise, hormones, sex and age. Serum or plasma cholesterol measurement (mass/volume)Ordered By: Petra Goncalves on 09-20-2024 Cholesterol [Mass/Vol] 205 mg/dL High <201 [facility] Comment on above: Cholesterol level, D esirable <200 mg/dLBorderline high cholesterol 200-239 mg/dLHigh cholesterol >=240 mg/dLRecommendations of the NCEP Adult Treatment Panel for the following risk-cutoff thresholds for the [place] population. Syphilis Antibodieson 2024 Syphilis Abs Non-Reactive Normal Nonreactive [facility] Comment on above: Performed By: #### L 100.0100, BTS, L509.4006, L3890.6102, L500.4100, L3890.6006, L3890.6301, L509.8002 #### [facility] [address] [place], [place], [id number] Triglycerides measurementOrd ered By: Petra Goncalves on 09-20-2024 Triglyceride [Mass/Vol] 119 mg/dL <199 [facility] Comment on above: The drugs N-Acetylcy steine and Metamizole may falsely depress this assay. Normal range: <150 mg/dLBorderline High: 150-199 mg/dLHigh: 200-499 mg/dLVery High: >500 mg/dL Type AND Screenon 09-20-2024 Ab SCREEN GEL Negative Normal [facility] Comment on above: Order Comment: PN Performed By: #### L 100.0100, BTS, L509.4006, L3890.6102, L500.4100, L3890.6006, L3890.6301, L509.8002 #### [facility] [address] [place], [place], [id number] Urine cultureOrdered By: Yogi Goncalves on 09-20-2024 Bacteria identified Cx Nom (U) Culture exhibits no growth. [facility] White blood cell (WBC) count Ordered By: Petra Goncalves on 09-20-2024 WBC (Bld) [#/Vol] 10.3 10*3/uL 4.4-11.0 [facility] Cervical or vaginal specimen microscopic examination by liquid based cytology (reportOrdered By: Laisha Mccoy on 08-19-2023 Cytology report Cyto stain.thin prep Doc (Cvx/Vag) Comment . [facility] Comment on above: Criteria not met, HP V Genotype not performed.Performed at: - [address] [id number] Director: Patti Howell MD, Phone: [phone] at: = - [facility] [id number] Director: Patti Howell MD, Phone: [phone] Cervical or vagninal specime n microscopic examination by cytology stain (reported asOrdered By: Laisha Mccoy on 08-19-2023 Cytology report Cyto stain Doc (Cvx/Vag) Comment . [facility] Comment on above: The Pap smear is [...] DNA Probe+sig amp Ql (Cvx) Negative Negative [facility] Comment on above: This nucleic acid am plification test detects fourteen high-risk HPV types (16,18,31,33,35,39,45,51,52,56,58,59,66,68)without differentiation. Laboratory - CytologyOrdered By: Laisha Mccoy on 08-19-2023 Entry Level Manager Cyto stain Nom (Cvx/Vag) [ID] Comment . [facility] Comment on above: Neetu Barber, Cytot echnologist (ASCP) Laboratory - Miscellaneous t estsOrdered By: Laisha Mccoy on 08-19-2023 Service comment (Unsp spec) [Interp] . . [facility] Thin prep Papanicolaou smear with manual screeningOrdered By: Laisha Mccoy on 08-19-2023 Thin prep Papanicolaou smear with manual screening Comment . [facility] Comment on above: NEGATIVE FOR INTRAEP ITHELIAL LESION OR MALIGNANCY. This liquid based Th inPrep(R) pap test was screened withthe use of an image guided system. Absolute lymphocyte countOrd ered By: Renata Lundy on 10-08-2022 Lymphocytes Auto (Unsp spec) [#/Vol] 1.38 10*3/uL 0.83-4.51 [facility] Basophil percentageOrdered B y: Renata Lundy on 10-08-2022 Basophils/100 WBC (Bld) 1.0 % 0-1 [facility] Bilirubin [Mass/Vol] 0.40 mg/dL 0.20-1.[address] [facility] Comment on above: For patients on eltr ombopag therapy, use of Dimension [place] TBIL is not recommended. Chloride [Moles/Vol] 106 mmol/L 98-[address] [facility] Cholesterol [Mass/Vol] 188 mg/dL <200 [facility] Comment on above: <200 mg/dL Desirable 200-240 mg/dL Borderline >240 mg/dL High Risk Eosinophils/100 WBC (Bld) 0.8 % 0-5 [facility] Glucose [Mass/Vol] 82 mg/dL 74-106 [facility] Neutrophils (Bld) [#/Vol] 4.0 10*3/uL 2.0-7.7 [facility] Neutrophils/100 WBC (Bld) 67.1 % 47-70 [facility] Potassium [Moles/Vol] 4.2 mmol/L 3.5-5.1 [facility] Protein [Mass/Vol] 7.9 g/dL 6.4-8.2 [facility] Sodium [Moles/Vol] 138 mmol/L 136-145 [facility] Triglyceride [Mass/Vol] 100 mg/dL <199 [facility] Comment on above: The drugs N-Acetylcy steine and Metamizole may falsely depress this assay.Serum Triglycerides Reference Interval Normal <150 mg/dL Borderline high 150 - 199 mg/dL High 200 - 499 mg/dL Very High > or = 500 mg/dL WBC (Bld) [#/Vol] 6.0 10*3/uL 4.4-11.0 [facility] Blood erythrocytes count (nu mber/volume)Ordered By: Renata Lundy on 10-08-2022 RBC (Bld) [#/Vol] 4.15 10*6/uL 4.2-5.4 [facility] Blood hemoglobin measurement (mass/volume)Ordered By: Renata Lundy on 10-08-2022 Hemoglobin (Bld) [Mass/Vol] 12.7 g/dL 12.0-15.0 [facility] Blood lymphocytes/100 leukoc ytesOrdered By: Renata Lundy on 10-08-2022 Lymphocytes/100 WBC (Bld) 22.9 % 19-41 [facility] Blood monocytes/100 leukocyt esOrdered By: Renata Lundy on 10-08-2022 Monocytes/100 WBC (Bld) 8.0 % 0-10 [facility] Blood platelet mean volumeOr dered By: Renata Lundy on 10-08-2022 Platelet mean volume (Bld) [Entitic vol] 9.5 fL 6.2-12.0 [facility] Determination of erythrocyte mean corpuscular volume (MCV)Ordered By: Renata Lundy on 10-08-2022 MCV (RBC) [Entitic vol] 91.3 fL 81-99 [facility] Hematocrit Auto (Bld) [Volum e fraction]Ordered By: Renata Lundy on 10-08-2022 Hematocrit (Bld) [Volume fraction] 37.9 % 37-47 [facility] - Chemistry and C hemistry - challengeOrdered By: Renata Lundy on 10-08-2022 ALP [Catalytic activity/Vol] 61 U/L 45-117 [facility] ALT [Catalytic activity/Vol] 19 U/L 13-56 [facility] CO2 [Moles/Vol] 25.0 mmol/L 21.0-32.0 [facility] Globulin (S) [Mass/Vol] 3.8 g/dL 2.2-4.2 [facility] Urea nitrogen/Creatinine [Mass ratio] 14.6 mg/mg 10-20 [facility] - Hematology and Cell countsOrdered By: Renata Lundy on 10-08-2022 Erythrocyte distribution width (RBC) [Entitic vol] 41.0 fL 35.1-43.9 [facility] Erythrocyte distribution width (RBC) [Ratio] 12.3 % 11.6-14.6 [facility] Immature granulocytes/100 WBC (Bld) 0.200 % 0.0-0.9 [facility] Comment on above: IG% - Immature Granu locytes (promyelocytes, myelocytes and metamyelocytes) > 1% indicates that a LEFT SHIFT is Present. MCH (RBC) [Entitic mass] 30.6 pg 27.0-32.0 [facility] Nucleated RBC/100 WBC (Bld) [Ratio] 0 % 0-5 [facility] MCHC Auto (RBC) [Mass/Vol]Or dered By: Renata Lundy on 10-08-2022 MCHC (RBC) [Mass/Vol] 33.5 g/dL 32-36 [facility] No Panel InformationOrdered By: Renata Lundy on 10-08-2022 Estimated GFR (MDRD) Amer 114 mL/min >60 [facility] Comment on above: GFR Calc Estimated GFR (MDRD) Non-Af Amer 95 mL/min >60 [facility] Comment on above: Non- GFR Calc Thyroid Stimulating Hormone (TSH) 1.43 uIU/mL 0.358-3.74 [facility] Platelets bldOrdered By: Vikash Lundy on 10-08-2022 Platelets (Bld) [#/Vol] 335 10*3/uL 150-450 [facility] Serum or plasma albumin edwina urement (mass/volume)Ordered By: Renata Lundy on 10-08-2022 Albumin [Mass/Vol] 4.1 g/dL 3.2-5.0 [facility] Serum or plasma albumin/glob ulin mass ratioOrdered By: Renata Lundy on 10-08-2022 Albumin/Globulin [Mass ratio] 1.1 {ratio} 0.9-2.4 [facility] Serum or plasma calcium edwina urement (mass/volume)Ordered By: Renata Lundy on 10-08-2022 Calcium [Mass/Vol] 8.9 mg/dL 8.5-10.1 [facility] Serum or plasma cholesterol in HDL measurement (mass/volume)Ordered By: Renata Lundy on 10-08-2022 Cholesterol in HDL [Mass/Vol] 52 mg/dL >40 [facility] Comment on above: The drugs N-Acetylcy steine and Metamizole may falsely depress this assay. Reference Range HDL <40 mg/dL Low HDL Cholesterol HDL >or= 60 mg/dL High HDL Cholesterol Serum or plasma cholesterol in VLDL measurement (mass/volume)Ordered By: Renata Lundy on 10-08-2022 Cholesterol in VLDL [Mass/Vol] 20 mg/dL 5-40 [facility] Serum or plasma creatinine m easurement (mass/volume)Ordered By: Renata Lundy on 10-08-2022 Creatinine [Mass/Vol] 0.75 mg/dL 0.55-1.02 [facility] Comment on above: The validity of the calculated GFR & GFRAA in patients over 70 years has not been determined. Clinical correlation is essential. Serum or plasma low density lipoprotein (LDL) cholesterol measurement (mass/volume)Ordered By: Renata Lundy on 10-08-2022 Cholesterol in LDL [Mass/Vol] 116 mg/dL 0-130 [facility] Serum or plasma urea nitroge n measurement (mass/volume)Ordered By: Renata Lundy on 10-08-2022 Urea nitrogen [Mass/Vol] 11 mg/dL 7-18 [facility] Thin prep Papanicolaou smear with manual screeningOrdered By: Renatadonato Lundy on 10-08-2022 Thin prep Papanicolaou smear with manual screening 16 U/L 15-37 [facility] Thin prep Papanicolaou smear with manual screening 7 5-15 [facility] Whole blood hemoglobin A1c/t otal hemoglobin ratio (mass fraction)Ordered By: Renata Lundy on 10-08-2022 HbA1c (Bld) [Mass fraction] 5.1 % 3.8-5.6 [facility] Comment on above: Normal < 5.7 % Predi abetic 5.7 - 6.4 % Diabetic >or= 6.5 % Please note range changes. No Panel Informationon 10-15 Miscellaneous Test See comment [facility] Work Phone: Comment on above: TEST RESULT [...] developed and its performance characteristics determined by [employer]. It has not been cleared or approved by the Food and Drug Administration.Susie albicans, KENYETTA, Negative NegativeCandida glabrata, KENYETTA, Negative NegativeTrich vag by KENYETTA Negative NegativeChlamydia trachomatis, KENYETTA Negative NegativeNeisseria gonorrhoeae, KENYETTA Negative Negative ____ TESTING PERFORMED AT [facility]. ORIGINAL REPORT ON FILE IN LAB CONTAINS ADDITIONAL TEST SITE INFORMATION. Absolute lymphocyte counton 09-03-2021 Lymphocytes Auto (Unsp spec) [#/Vol] 1.48 10*3/uL 0.83-4.51 [facility] Work Phone: Basophil percentageon 2021 Basophils/100 WBC (Bld) 0.3 % 0-1 [facility] Work Phone: Eosinophils/100 WBC (Bld) 0.2 % 0-5 [facility] Work Phone: Neutrophils (Bld) [#/Vol] 8.5 10*3/uL 2.0-7.7 [facility] Work Phone: Neutrophils/100 WBC (Bld) 78.4 % 47-70 [facility] Work Phone: WBC (Bld) [#/Vol] 10.8 10*3/uL 4.4-11.0 [facility] Work Phone: Blood erythrocytes count (nu mber/volume)on 09-03-2021 RBC (Bld) [#/Vol] 3.80 10*6/uL 4.2-5.4 [facility] Work Phone: Blood hemoglobin measurement (mass/volume)on 09-03-2021 Hemoglobin (Bld) [Mass/Vol] 12.0 g/dL 12.0-15.0 [facility] Work Phone: Blood lymphocytes/100 leukoc yteson 09-03-2021 Lymphocytes/100 WBC (Bld) 13.7 % 19-41 [facility] Work Phone: Blood monocytes/100 leukocyt eson 09-03-2021 Monocytes/100 WBC (Bld) 6.8 % 0-10 [facility] Work Phone: Blood platelet mean volumeon 09-03-2021 Platelet mean volume (Bld) [Entitic vol] 10.2 fL 6.2-12.0 [facility] Work Phone: Determination of erythrocyte mean corpuscular volume (MCV)on 09-03-2021 MCV (RBC) [Entitic vol] 93.2 fL 81-99 [facility] Work Phone: [phone] Hematocrit Auto (Bld) [Volum e fraction]on 09-03-2021 Hematocrit (Bld) [Volume fraction] 35.4 % 37-47 [facility] Work Phone: Laboratory - Hematology and Cell countson 09-03-2021 Erythrocyte distribution width (RBC) [Entitic vol] 44.8 fL 35.1-43.9 [facility] Work Phone: [phone] Erythrocyte distribution width (RBC) [Ratio] 13.2 % 11.6-14.6 [facility] Work Phone: [phone] Immature granulocytes/100 WBC (Bld) 0.600 % 0.0-0.9 [facility] Work Phone: Comment on above: IG% - Immature Granu locytes (promyelocytes, myelocytes and metamyelocytes) > 1% indicates that a LEFT SHIFT is Present. MCH (RBC) [Entitic mass] 31.6 pg 27.0-32.0 [facility] Work Phone: [phone] Nucleated RBC/100 WBC (Bld) [Ratio] 0 % 0-5 [facility] Work Phone: [phone] MCHC Auto (RBC) [Mass/Vol]on 09-03-2021 MCHC (RBC) [Mass/Vol] 33.9 g/dL 32-36 [facility] Work Phone: No Panel Informationon 09-03 Vaginal Amniotic Fluid Detection Positive Negative [facility] Work Phone: Comment on above: Amniotic fluid prese nt indicates rupture of Membranes. RESULTS CALLED TO CRYS 09/03/21 2211 Izabela De Luna.REPORT READ BACK BY SAME . Platelets bldon 09-03-2021 Platelets (Bld) [#/Vol] 260 10*3/uL 150-450 [facility] Work Phone: No Panel Informationon 08-14 Group B Streptococcus Culture Group B Beta Streptococcus is not isolated. [facility] Work Phone: Laboratory - Microbiology an d Antimicrobial susceptibilityon 05-28-2021 SARS-CoV-2 (COVID-19) RNA KENYETTA+probe Ql (Unsp spec) Not detected Not Detect [facility] Work Phone: Comment on above: Normal Reference [...] 2021 WBC (Bld) [#/Vol] 10.5 10*3/uL 4.4-11.0 [facility] Work Phone: Blood erythrocytes count (nu mber/volume)on 05-21-2021 RBC (Bld) [#/Vol] 3.80 10*6/uL 4.2-5.4 [facility] Work Phone: Blood hemoglobin measurement (mass/volume)on 05-21-2021 Hemoglobin (Bld) [Mass/Vol] 11.7 g/dL 12.0-15.0 [facility] Work Phone: Blood platelet mean volumeon 05-21-2021 Platelet mean volume (Bld) [Entitic vol] 9.7 fL 6.2-12.0 [facility] Work Phone: Determination of erythrocyte mean corpuscular volume (MCV)on 05-21-2021 MCV (RBC) [Entitic vol] 94.7 fL 81-99 [facility] Work Phone: Gestational diabetes screen 1-hour screen with 50g oral glucose loadon 05-21-2021 Glucose 1 Hr post 50 g glucose PO [Mass/Vol] 100 mg/dL 70-140 [facility] Work Phone: Hematocrit Auto (Bld) [Volum e fraction]on 05-21-2021 Hematocrit (Bld) [Volume fraction] 36.0 % 37-47 [facility] Work Phone: Laboratory - Hematology and Cell countson 05-21-2021 Erythrocyte distribution width (RBC) [Entitic vol] 44.9 fL 35.1-43.9 [facility] Work Phone: [phone] Erythrocyte distribution width (RBC) [Ratio] 13.0 % 11.6-14.6 [facility] Work Phone: [phone] MCH (RBC) [Entitic mass] 30.8 pg 27.0-32.0 [facility] Work Phone: MCHC Auto (RBC) [Mass/Vol]on 05-21-2021 MCHC (RBC) [Mass/Vol] 32.5 g/dL 32-36 [facility] Work Phone: Platelets bldon 05-21-2021 Platelets (Bld) [#/Vol] 321 10*3/uL 150-450 [facility] Work Phone: HAND MIN 3 VIEWSon 0 HAND MIN 3 VIEWS Patient Name: GIULIA HOGUE STUDY: HAND MIN 3 VIEWS; Right; 01/01/2020 2:25 pm INDICATION: OPEN BITE OF RIGHT INDEX FINGER W/O DAMAGE TO NAIL, INIT OPEN BITE OF RIGHT MIDDLE FINGER W/O DAMAGE TO NAIL, INIT. COMPARISON: None. ACCESSION NUMBER(S): [id number] ORDERING CLINICIAN: MONIE CISNEROS FINDINGS: Right hand three views. Soft tissue swelling is noted surrounding the right 3rd phalanx. No fracture or dislocation is noted. No lytic lesion is seen. No radiopaque foreign body is noted IMPRESSION: Soft tissue swelling surrounding right 3rd phalanx. No additional visualized abnormality Electronically signed by: BARBARA GUZMAN MD [facility] Vital Signs Date Time Vital Sign Value Performing Clinician Tatiana raygoza 02-22-2025 09:01-0400 Body height 162.56 cm Jose Blanca MD Work Phone: [facility] 02-22-2025 09:01-0400 Body mass index (BMI) [Ratio] 30.6 kg/m2 Jose Blanca MD Work Phone: [facility] 02-22-2025 09:01-0400 Body weight 80.93 kg Jose Blanca MD Work Phone: [facility] 02-22-2025 09:01-0400 Diastolic blood pressure 74 mm[Hg] Jose Blanca MD Work Phone: [facility] 02-22-2025 09:01-0400 Systolic blood pressure 109 mm[Hg] Jose Blanca MD Work Phone: [facility] 02-05-2025 09:37-0400 Body height 162.56 cm Jose Blanca MD Work Phone: [facility] 02-05-2025 09:33-0400 Body mass index (BMI) [Ratio] 30.7 kg/m2 Jose Blanca MD Work Phone: [facility] 02-05-2025 09:33-0400 Body weight 81.3 kg Jose Blanca MD Work Phone: [facility] 02-05-2025 09:33-0400 Diastolic blood pressure 71 mm[Hg] Jose Blanca MD Work Phone: [facility] 02-05-2025 09:33-0400 Systolic blood pressure 112 mm[Hg] Jose Blanca MD Work Phone: [facility] 01-15-2025 09:15-0400 Body height 162.56 cm Jose Blanca MD Work Phone: [facility] 01-15-2025 09:15-0400 Body mass index (BMI) [Ratio] 30 kg/m2 Jose Blanca MD Work Phone: [facility] 01-15-2025 09:15-0400 Body weight 79.49 kg Jose Blanca MD Work Phone: [facility] 01-15-2025 09:15-0400 Diastolic blood pressure 73 mm[Hg] Jose Blanca MD Work Phone: [facility] 01-15-2025 09:15-0400 Systolic blood pressure 109 mm[Hg] Jose Blanca MD Work Phone: [facility] 12-18-2024 08:25-0400 Body height 162.56 cm Jose Blanca MD Work Phone: [facility] 12-18-2024 08:25-0400 Body mass index (BMI) [Ratio] 29.5 kg/m2 Jose Blanca MD Work Phone: [facility] 12-18-2024 08:25-0400 Body weight 78.18 kg Jose Blanca MD Work Phone: [facility] 12-18-2024 08:25-0400 Diastolic blood pressure 77 mm[Hg] Jose Blanca MD Work Phone: [facility] 12-18-2024 08:25-0400 Systolic blood pressure 112 mm[Hg] Jose Blanca MD Work Phone: [facility] 11-19-2024 15:18-0400 Body height 162.56 cm Jose Blanca MD Work Phone: [facility] 11-19-2024 15:18-0400 Body mass index (BMI) [Ratio] 29.2 kg/m2 Jose Blanca MD Work Phone: [facility] 11-19-2024 15:18-0400 Body weight 77.16 kg Jose Blanca MD Work Phone: [facility] 11-19-2024 15:18-0400 Diastolic blood pressure 78 mm[Hg] Jose Blanca MD Work Phone: [facility] 11-19-2024 15:18-0400 Systolic blood pressure 122 mm[Hg] Jose Blanca MD Work Phone: [facility] 10-23-2024 10:21-0400 Body height 162.56 cm Jose Blanca MD Work Phone: [facility] 10-23-2024 10:21-0400 Body mass index (BMI) [Ratio] 28.3 kg/m2 Jose Blanca MD Work Phone: [facility] 10-23-2024 10:21-0400 Body weight 74.89 kg Jose Blanca MD Work Phone: [facility] 10-23-2024 10:21-0400 Diastolic blood pressure 77 mm[Hg] Jose Blanca MD Work Phone: [facility] 10-23-2024 10:21-0400 Systolic blood pressure 119 mm[Hg] Jose Blanca MD Work Phone: [facility] 09-20-2024 12:59-0400 Body height 162.56 cm Jose Blanca MD Work Phone: [facility] 09-20-2024 12:59-0400 Body mass index (BMI) [Ratio] 27.6 kg/m2 Jose Blanca MD Work Phone: [facility] 09-20-2024 12:59-0400 Body weight 73.19 kg Jose Blanca MD Work Phone: [facility] 09-20-2024 12:59-0400 Diastolic blood pressure 81 mm[Hg] Jose Blanca MD Work Phone: [facility] 09-20-2024 12:59-0400 Systolic blood pressure 117 mm[Hg] Jose Blanca MD Work Phone: [facility] 08-19-2023 14:44-0400 Body height 162.56 cm DO Renatadonato Sotonger Work Phone: [facility] 08-19-2023 14:43-0400 Body mass index (BMI) [Ratio] 27.5 kg/m2 DO Renata Nikkie Work Phone: [facility] 08-19-2023 14:43-0400 Body weight 72.8 kg DO Renata Nikkie Work Phone: [facility] 08-19-2023 14:43-0400 Diastolic blood pressure 83 mm[Hg] DO Renatadonato Sotonger Work Phone: [facility] 08-19-2023 14:43-0400 Systolic blood pressure 121 mm[Hg] DO Renatadonato Sotonger Work Phone: [facility] 09-05-2021 14:00-0400 Body temperature 97.9 [degF] [facility] Work Phone: 09-05-2021 14:00-0400 Diastolic blood pressure 67 mm[Hg] [facility] Work Phone: 09-05-2021 14:00-0400 Heart rate 60 /min [facility] Work Phone: 09-05-2021 14:00-0400 Respiratory rate 16 /min [facility] Work Phone: 09-05-2021 14:00-0400 Systolic blood pressure 102 mm[Hg] [facility] Work Phone: 09-04-2021 15:56-0400 SaO2% (BldA) [Mass fraction] 96 % [facility] Work Phone: 09-03-2021 17:57-0400 Body height 162.56 cm [facility] Work Phone: 09-03-2021 17:57-0400 Body mass index (BMI) [Ratio] 32.1 kg/m2 [facility] Work Phone: 09-03-2021 17:57-0400 Body weight 84.82 kg [facility] Work Phone: Encounters Encounter Date Encounter Type Care Provider Facility Start: 03-19-2025 End: 03-19-2025 ambulatory Petra Sacha [place] Start: 03-08-2025 End: 03-08-2025 ambulatory Petra Sacha [place] Start: 02-22-2025 End: 02-22-[address] Pooja Diop MD -[facility] Work Phone: Start: 02-22-2025 End: 02-22-2025 ambulatory Jose Blanca MD Work Phone: -[facility] Start: 02-05-2025 End: 02-05-2025 Patient encounter procedure Alyse BARDALES -[facility] Work Phone: Start: 02-05-2025 End: 02-05-2025 ambulatory Jose Blanca MD Work Phone: -[facility] Start: 01-15-2025 End: 01-15-[address] Pooja Diop MD -[facility] Work Phone: Start: 01-15-2025 End: 01-15-2025 ambulatory Jose Blanca MD Work Phone: -[facility] Start: 01-15-2025 End: 01-15-2025 ambulatory Jose Blanca Facility:[facility] Start: 12-18-2024 End: 12-18-2024 Patient encounter procedure Alyse BARDALES -[facility] Work Phone: Start: 12-18-2024 End: 12-18-2024 ambulatory Jose Blanca MD Work Phone: -[facility] Start: 11-29-2024 End: 11-29-2024 ambulatory KALEIGH PERSAUD [facility] Start: 11-19-2024 End: 11-19-[address] Pooja Diop MD -[facility] Work Phone: Start: 11-19-2024 End: 11-19-2024 ambulatory Jose Blanca MD Work Phone: -[facility] Start: 10-23-2024 End: 10-23-[address] Kaleigh Milner DO -[facility] Work Phone: Start: 10-23-2024 End: 10-23-2024 ambulatory Jose Blanca MD Work Phone: [facility] Work Phone: Start: 09-20-2024 End: 09-20-2024 Patient encounter procedure Petra KIRBY -[facility] Work Phone: Start: 09-20-2024 End: 09-20-2024 ambulatory Jose Blanca MD Work Phone: [facility] Work Phone: Start: 09-20-2024 End: 09-20-2024 ambulatory Petra Goncalves Facility:[facility] Start: 08-19-2023 End: 08-19-2023 ambulatory DO Renata Lundy Work Phone: [facility] Work Phone: Start: 08-19-2023 End: 08-19-2023 Patient encounter procedure DO Renata Lundy Work Phone: [facility] Work Phone: Start: 08-19-2023 End: 08-19-2023 Patient encounter procedure DO Renata Lundy Work Phone: [facility] Work Phone: Start: 10-08-2022 End: 10-08-2022 ambulatory [facility] Work Phone: Start: 10-08-2022 End: 10-08-2022 Patient encounter procedure [facility], Clari Mims Start: 10-15-2021 End: 10-15-[address] Astrid Guerrero Work Phone: [facility], Specimen Start: 09-07-2021 End: 09-07-[address] Astrid Guerrero Work Phone: [facility] Start: 09-03-2021 End: 09-05-2021 Evaluation and management of inpatient [facility] Start: 08-14-2021 End: 08-14-2021 Patient encounter procedure [facility] Spec[facility] Start: 05-28-2021 End: 05-28-2021 Patient encounter procedure [facility], Specimen Start: 05-21-2021 End: 05-21-2021 Patient encounter procedure [facility] [place] inpatient [facility] rn Off Procedures Date Procedure Procedure Detail Performing [...] HCV Quant by PCR testing - HCVPCR #[id number] Non Reactive: < 0.8 Equivocal: >/= 0.8 [...] Start: 02-05-2025 End: 02-05-2025 Patient encounter procedure -[facility] Work Phone: Start: 01-15-2025 CBC W Auto Different ial panel - Blood [facility] Start: 01-15-2025 Measurement of gluco se 2 hours after glucose challenge for glucose tolerance test [facility] Start: 01-15-2025 Serologic test for syphilis [facility] Start: 01-15-2025 [facility] Start: 09-20-2024 CBC W Auto Different ial panel - Blood [facility] Start: 09-20-2024 Hepatitis C antibody measurement [facility] Start: 09-20-2024 Lipid 1996 panel - S delfino or Plasma [facility] Start: 09-20-2024 Rubella IgG measurement [facility] Start: 09-20-2024 Serologic test for syphilis [facility] Start: 09-20-2024 [facility] CBC W Auto Different ial panel - Blood [facility] Chlamydia deoxyribon ucleic acid detection [facility] Cholesterol [Mass/vo lume] in Serum or Plasma [facility] Cholesterol in HDL [ Mass/volume] in Serum or Plasma [facility] Erythrocyte mean cor puscular volume determination [facility] Erythrocyte mean cor puscular volume determination [facility] Hematocrit [Volume F raction] of Blood [facility] Hematocrit [Volume F raction] of Blood [facility] Hemoglobin [Mass/vol ume] in Blood [facility] Hemoglobin [Mass/vol ume] in Blood [facility] Hepatitis B virus isabel rface Ag [Presence] in Serum [facility] Leukocytes [#/volume] in Blood [facility] Leukocytes [#/volume] in Blood [facility] Low density lipoprot ein cholesterol measurement [facility] Mean corpuscular hem oglobin concentration determination [facility] Mean corpuscular hem oglobin concentration determination [facility] Mean corpuscular hem oglobin determination [facility] Mean corpuscular hem oglobin determination [facility] Measurement of gluco se 2 hours after glucose challenge for glucose tolerance test [facility] Neutrophil count [facility] Neutrophil count [facility] Neutrophil percent d ifferential count [facility] Neutrophil percent d ifferential count [facility] Patient referral [facility] Work Phone: Platelets [#/volume] in Blood [facility] Platelets [#/volume] in Blood [facility] Red blood cell count [facility] Red blood cell count [facility] Red cell distributio n width determination [facility] Red cell distributio n width determination [facility] Serologic test for syphilis [facility] Total cholesterol:HD L ratio measurement [facility] Triglycerides measurement [facility] VLDL cholesterol measurement [facility] Immunizations Immunization Date Immunization Notes Care Provider Fa [facility] 02-05-2025 tetanus toxoid, redu chelsea diphtheria toxoid, and acellular pertussis vaccine, adsorbed Jose Blanca MD Work Phone: [facility] 09-14-2018 tetanus toxoid, redu chelsea diphtheria toxoid, and acellular pertussis vaccine, adsorbed [facility] Payers Date Payer Category Payer Self-pay [id number] 2024 Private Health Insurance [id number] 1990 Unknown [id number] Private Health Insurance [id number] Unknown [id number] Unknown [id number] Unknown [facility] [id number] Unknown [id number] Unknown [id number] Unknown [id number] Unknown [id number] Unknown [id number] Unknown [id number] Unknown [id number] Unknown [id number] Unknown [id number] Unknown [id number] Unknown [id number] Social History Date Type Detail Facility Start: 12-18-2020 End: 08-19-2023 Tobacco smoking status [facility] Unknown if ever smoked [facility] Start: 1990 Sex Assigned At Female [facility] Start: 08-31-2024 Tobacco smoking stat us [facility] Never smoked tobacco (finding) [facility] Sex Female [facility] Clinical Notes 08-19-2023 to 02-22-2025 Note Date & Type Note Facility 02-22-2025 Progress note [facility] 02-05-2025 Progress note [facility] 11-19-2024 Evaluation note Diagnosis Onset Date [...] Supervision of normal acute February 22 8:49am [facility] Work Phone: 1(696) 362-714107-14-2025 Progress [facility] [address] [place] [address], [address] [place] [address] OFFICE VISIT Date of Service: 11/19/24 MR#: [id number] Acct: [id number] Name: GIULIA HOGUE Rep #: [id number] : 1990 Provider: Dr. Jadiel Diop MD Age/Sex: 34/F [place] [facility] Status: Signed Intake Vital Signs 09/20/24 12:59 10/23/24 10:21 11/19/24 15:18 Height 5 ft 4 in 5 ft 4 in 5 ft 4 in Weight: 170 lb 2 oz BMI 29.2 BP 122/78 H Intake Visit Reasons: 18 wk ob Rounder Hand Required: No Is patient in pain?: No [...] mg-folate no.1 1 mg-dha 300 mg capsule (PNV-[place]) Last Menstrual Period: 07/15/24 Zika: Zika virus [...] 2 current occupational status: employed 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 current occupational exposures/hazards: No pets and animals: [...] physical activity do you participate in: none angel/faith: Quaker seatbelt use: always do you feel safe [...] - full term 7#13oz Male epi dural [facility] Kate Hansen 09/04/21 Tamar 39 live - full term 8# Female epid ural [facility] Cooper Hansen Delivery Date: 01/05/19 Last Updated [...] Cosigner Signature: Date (if applicable) CC: ~ [facility]07-14-2025 Progress note Author Pooja Diop [facility] Note Date/Time November 19, 2024 3:45 pm [facility] [address], [address] [place] [address] OFFICE VISIT Date of Service: 11/19/24 MR#: [id number] Acct: [id number] Name: GIULIA HOGUE Rep #: [id number] : 1990 Provider: Dr. Jadiel Diop MD Age/Sex: 34/F [place] [facility] Status: Signed Intake Vital Signs 09/20/24 12:59 10/23/24 10:21 11/19/24 15:18 Height 5 ft 4 in 5 ft 4 in 5 ft 4 in Weight: 170 lb 2 oz BMI 29.2 BP 122/78 H Intake Visit Reasons: 18 wk ob Rounder Hand Required: No Is patient in pain?: No [...] mg-folate no.1 1 mg-dha 300 mg capsule (PNV-[place]) Last Menstrual Period: 07/15/24 Zika: Zika virus [...] 2 current occupational status: employed 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 current occupational exposures/hazards: No pets and animals: [...] physical activity do you participate in: none angel/faith: Quaker seatbelt use: always do you feel safe [...] - full term 7#13oz Male epi dural [facility] Kate Hansen 09/04/21 Tamar 39 live - full term 8# Female epid ural [facility] Cooper Lieberman [place] Delivery Date: 01/05/19 Last [...] Cosigner Signature: Date (if applicable) CC: ~ [facility] Work Phone: 1(918) 582-290806-17-2025 Evaluation note* Diagnosis Onset Date Resolution Status [...] of normal acute February 05, 2025 9:29am [facility] Work Phone: 1(688) 797-155205-15-2025 Evaluation note* Diagnosis Onset Date Resolution Status Admit Date acute September 20, 2024 12:56pm Seasonal allergies acute September 202024 12:56pm Supervision of normal acut e September 20, 2024 12:56pm [facility] Work Phone: 1(640) 211-474305-15-2025 Evaluation note* Diagnosis Onset Date Resolution Status Admit Date acute September 20, 2024 12:56pm Seasonal allergies acute September 202024 12:56pm Supervision of normal acut e September 20, 2024 12:56pm acute October 23 10:14am Seasonal allergies acute October 072024 10:14am Supervision of normal acut e October 23, 2024 10:14am [facility] Work Phone: 1(493) 983-332105-15-2025 Evaluation note* Diagnosis Onset Date Resolution Status [...] normal acut e November 19, 2024 3:15pm [facility] Work Phone: [phone] [id number] Evaluation note* Diagnosis Onset Date Resolution Status [...] normal acut e December 18, 2024 8:23am [facility] Work Phone: 1(423) 792-736605-15-2025 Evaluation note* Diagnosis Onset Date Resolution Status [...] of normal acute January 15, 025 9:09am [facility] Work Phone: 1(431) 879-957005-15-2025 [facility] [address] [place] [address], [address] [place] [address] OFFICE VISIT Date of Service: 09/20/24 MR#: [id number] Acct: [id number] Name: GIULIA HOGUE Rep #: [id number] : 1990 Provider: BEATRIS Goncalves Age/Sex: 34/F [place] [facility] Status: Signed Intake Vital Signs 08/19/23 14:44 09/20/24 12:59 Height 5 ft 4 in 5 ft 4 in Weight: 161 lb 6 oz BMI 27.6 BP 117/81 H Intake Visit Reasons: New OB, LMP 07/15, DONNY 04/21 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 Hand Required: No Is patient in pain?: No [...] mg-folate no.1 1 mg-dha 300 mg capsule (PNV-Belvidere) Last Menstrual Period: 07/15/24 : Yes PFSH PFSH Medical History URI (upper respiratory infection) Lab test negative for COVID-19 virus Seasonal allergies Surgical History History of wisdom tooth extraction Family History Father Heart disease Mother Diabetes Other Hypertension Social History adopted: No household members: spouse and children housing: house number of children: 2 service: No current occupational status: employed 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[employer] current occupational exposures/hazards: No pets and animals: [...] physical activity do you participate in: none angel/faith: Quaker seatbelt use: always do you feel safe [...] - full term 7#13oz Male epi dural [facility] Kate Hasnen 09/04/21 Tamar 39 live - full term 8# Female epid ural [facility] Cooper Hansen Delivery Date: 01/05/19 Last Updated [...] (Rh) Sensitized, Pulmonary (e.g.,TB,Asthma), Drug/latex allergies/reactions, Breast, Enamel Drier surgery, Anesthetic complications, History of abnormal pap, [...] Symptoms of Preeclampsia, Infant Feeding Yes , [place] Education and Family Medical Leave or Disability [...] Cosigner Signature: Date (if applicable) CC: ~ [facility]04-12-2024 NotePap Smear Specimen AdequacyApril 2023 11:59pmComment.Satisfactory for evaluation. No endocervical component is identified.[facility] INTERFACED A#[id number] City HospitalComment on above:Satisfactory for evaluation. No endocervical component is identified. Evaluation noteNo assessment information availableWSalem City Hospital Work Phone: Evaluation note* Diagnosis Onset Date Resolution Status acute [facility] Work Phone: Evaluation note* Diagnosis Onset Date Resolution Status Encounter for routine gynecological examination noneactive [facility] Work Phone: Evaluation note* Diagnosis Onset Date Resolution Status Admit Date acute September 20, 2024 12:56pm Seasonal allergies acute September 202024 12:56pm Supervision of normal acut e September 20, 2024 12:56pm [facility] Work Phone: Progress note Author Petra Goncalves [facility] Note Date/Time September 20, 2024 1:32p m [facility] [address] [place] [address], [address] [place] [address] OFFICE VISIT Date of Service: 09/20/24 MR#: [id number] Acct: [id number] Name: GIULIA HOGUE Rep #: [id number] : 1990 Provider: BEATRIS Goncalves Age/Sex: 34/F [place] [facility] Status: Signed Intake Vital Signs 08/19/23 14:44 09/20/24 12:59 Height 5 ft 4 in 5 ft 4 in Weight: 161 lb 6 oz BMI 27.6 BP 117/81 H Intake Visit Reasons: New OB, LMP 07/15, DONNY 04/21 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 Hand Required: No Is patient in pain?: No [...] mg-folate no.1 1 mg-dha 300 mg capsule (PNV-Belvidere) Last Menstrual Period: 07/15/24 : Yes PFSH PFSH Medical History URI (upper respiratory infection) Lab test negative for COVID-19 virus Seasonal allergies Surgical History History of wisdom tooth extraction Family History Father Heart disease Mother Diabetes Other Hypertension Social History adopted: No household members: spouse and children housing: house number of children: 2 service: No current occupational status: employed 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[employer] current occupational exposures/hazards: No pets and animals: [...] physical activity do you participate in: none angel/faith: Quaker seatbelt use: always do you feel safe [...] - full term 7#13oz Male epi dural [facility] Kate Tyrone 09/04/21 Tamar 39 live - full term 8# Female epid ural [facility] Copoer Mio Hansen Delivery Date: 01/05/19 Last Updated [...] (Rh) Sensitized, Pulmonary (e.g.,TB,Asthma), Drug/latex allergies/reactions, Breast, Enamel Drier surgery, Anesthetic complications, History of abnormal pap, [...] Symptoms of Preeclampsia, Infant Feeding Yes , [place] Education and Family Medical Leave or Disability [...] Cosigner Signature: Date (if applicable) CC: ~ [facility] Work Phone: Progress note Author Alyse Raza [facility] Note Date/Time February 05, 2025 9:50am [facility] [address] [place] [address], [place] [address] OFFICE VISIT Date of Service: 02/05/25 MR#: [id number] Acct: [id number] Name: GIULIA HOGUE Rep #: [id number] : 1990 Provider: JEFFY Raza Age/Sex: 34/F Location[place] [facility] Status: Signed Intake Vital Signs 11/19/24 15:18 01/15/25 09:15 02/05/25 09:33 02/05/25 09:37 Height 5 ft 4 in 5 ft 4 in 5 ft 4 in 5 ft 4 in Weight: 175 lb 4 oz 179 lb 4 oz BMI 30.0 30.7 BP 109/73 112/71 Intake Visit Reasons: 28 wk ob Chief Complaint: 28 Week OB Rounder Hand Required: No Is patient in pain?: No [...] mg-folate no.1 1 mg-dha 300 mg capsule (PNV-Belvidere) Last Menstrual Period: 07/15/24 Zika: Zika virus screening: Negative : Yes [facility] Medical History URI (upper respiratory infection) Lab test negative for COVID-19 virus Seasonal allergies Surgical History History of wisdom tooth extraction Family History Father Heart disease Mother Diabetes Other Hypertension Social History adopted: No household members: spouse and children housing: house number of children: 2 current occupational status: employed 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 needs insurance info filed out. kalli NIPT. 11/19/24 -?-?-?-?-?-?-?-?-?-?-?-?- 18w 1d 170 lb 2 oz (+9 lb 2 oz) 122/78 Negative -?-?-?-?-?-?-?-?-?-?-?-?- Negative 150 -?-?-?-?-?-?-?-?-?-?-?-?- SM- no vb crampi ng doing well 12/18/24 -?-?-?-?-?-?-?-?-?-?-?-?- 22w 2d 172 lb 6 oz (+11 lb 6 oz) 112/77 Negative -?-?-?-?-?-?-?-?-?-?-?-?- Negative 145 -?-?-?-?-?-?-?-?-?--?-?-?- MH-No VB, LOF. G otamiko FM. [facility]. MG for leg cramps 01/15/25 -?-?-?-?-?-?-?-?-?-?-?-?- 26w [...] Symptoms of Preeclampsia, Infant Feeding Yes , [place] Education, Family Medical Leave or Disability Forms [...] mL IM syringe Performing Provider: Alyse Raza PURCHASING ENGINEER, PURCHASING ENGINEER-C Performing Location: [facility] Administered by: Brooke Lieberman on 02/05/25 09:41 Dose Route Admin Location Dispensed Lot Number Expiration Date Pack age NDC NDC Elocution Teacher 0.5 mL IM Right Deltoid 0.5 mL [id number] 01/06/27 84576-400-65 [id number] [employer]- PASTEUR VIS Given Date VIS Provided VIS [...] [id number] <Electronically signed by Alyse alejandre NP PURCHASING ENGINEER-C> Date _ Alyse Raza NP PURCHASING ENGINEER-C Cosigner Signature: Date (if applicable) CC: ~ [facility] Work Phone: Progress note Author Pooja Diop [facility] Note Date/Time February 22, 2025 9 :28am [facility] [address] [place] [address], [address] [place] [address] OFFICE VISIT Date of Service: 02/22/25 MR#: [id number] Acct: [id number] Name: GIULIA HOGUE Rep #: [id number] : 1990 Provider: Dr. 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 occupational exposures/hazards: No pets and animals: [...] physical activity do you participate in: none angel/faith: Quaker seatbelt use: always do you feel safe [...] - full term 7#13oz Male epi dural [facility] Kate Tyrone 09/04/21 Tamar 39 live - full term 8# Female epid ural [facility] Cooper Hansen Delivery Date: 01/05/19 Last Updated [...] Cosigner Signature: Date (if applicable) CC: ~ [facility] Work Phone: Reason for referral (narrative)No reason for referral information availablePioneers Memorial Hospital Work Phone: Summary Purpose Family History [...] January 04, 201 9 9:02pm Power of Ticket Sales Supervisor No January 04, 2 019 9:02pm Advance Directive Response Recorded Date/ Time Living Will No September 03, 2021 10:31pm Power of Ticket Sales Supervisor No September 03 10:31pm Chief Complaint and Reason for Visit Chief Complaint VAGINAL DELIVERY Reason for Visit Chief Complaint VAGINAL DELIVERY baby weight check and jaundice Reason for Visit Chief Complaint 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 Reason for Visit Encounter for routin [...] section and content) DATE CREATED AUTHOR 05/19/2020 [facility] DATE CREATED AUTHOR AUTHOR'S ORGANIZ ATION 12/01/2024 [facility] DATE CREATED AUTHOR AUTHOR'S ORGANIZ ATION 03/20/2025 [facility] Goals (unrecognized section and content) Type [...] 2024 End: December 18, 2024 Alyse Raza PURCHASING ENGINEER, PURCHASING ENGINEER-C Attending Provider Active Start: December 18, 2024 [...] St art: January 15, 2025 Alyse Raza PURCHASING ENGINEER, PURCHASING ENGINEER-C Attending Provider Active Start: January 15, 2025 [...] End: December 18, 2024 Alyse Luz Marina PURCHASING ENGINEER, PURCHASING ENGINEER-C Attending physician Active Start: December 18, 2024 [...] 2025 End: January 15, 2025 Alyse Raza PURCHASING ENGINEER, PURCHASING ENGINEER-C Attending physician Active Start: January 15, 2025 End: January 15, 2025 Team Status: Inactive Member Role/Relationship Status Zahra Blanca MD Primary care physician Active S tart: February 05, 2025 End: February 05, 2025 Jose Blanca MD Referring Provider Active Start : February 05, 2025 End: February 05, 2025 Alyse Raza NP, PURCHASING ENGINEER-C Attending physician Active Start: February 05, 2025 [...] End: December 18, 2024 Alyse Raza NP, PURCHASING ENGINEER-C Attending physician Active Start: December 18, 2024 [...] End: January 15, 2025 Alyse Raza NP PURCHASING ENGINEER-C Attending physician Active Start: January 15, 2025 End: January 15, 2025 Team Status: Inactive Member Role/Relationship Status Zahra Blanca MD Primary care physician Active S tart: February 05, 2025 End: February 05, 2025 Jose Blanca MD Referring Provider Active Start : February 05, 2025 End: February 05, 2025 Alsye Raza NP PURCHASING ENGINEER-C Attending physician Active Start: February 05, 2025 [...] BE BASED ON THE PRIMARY CLINICAL RECORDS. [facility] [employer] [facility]. provides no warranty or guarantee of the accuracy or completeness of information in this document.
[2025-04-19] MEDS: Lactated Ringers 1,000 ML 999 ML IV ×2 (06:30→10:10)
[2025-04-19 06:53] LABS: Hematocrit 33.1 % (37-47); Hemoglobin 11.1 g/dL (12.0-15.0); Immature Granulocytes Count 0.040 X10^3/uL (0.0-0.0); Mean Corp Hgb Conc 33.5 g/dL (32-36); Mean Corpuscular Volume 93.2 fL (81-99); Mean Platelet Vol. 9.4 fl (6.2-12.0); NRBC Flagged by Analyzer 0 % (0-5); Platelet Count 331 K/mm3 (150-450); RBC Distribution Width CV 12.8 % (11.6-14.6); RBC Distribution Width SD 43.9 fl (35.1-43.9); Red Blood Count 3.55 M/mm3 (4.2-5.4); White Blood Count 9.3 K/mm3 (4.4-11.0)
[2025-04-19 07:34] LABS: Syphilis Antibodies Nonreactive (Nonreactive)
--- NOTE | 2025-04-19 08:09 | HP.PCM.OB_ITS ---
HPI - General General Date of Admission: 04/19/25 Date of Service: 04/19/25 HPI Narrative GIULIA HOGUE, is a 34 F at 39.5 weeks gestation who presents to unit in active labor at a variable deceleration on the monitor upon arrival but resolved after fluid bolus. SVE progressed from 3/60/-3 to 4.5/70/-2. AROM at this time for clear fluid. Maternal Data Information DONNY Calculator Estimated Delivery Date Method Current WG Current Estimate 04/21/25 LMP (Certain) 39w 5d Other Estimates 04/21/25 Ultrasound #1 39w 5d Final DONNY: 04/21/25 Final DONNY Source: US >20 weeks Gestational age: 39.5 [facility] Medical History URI (upper respiratory infection) Lab test negative for COVID-19 virus Seasonal allergies Home Medications ?Medication ?Instructions ?Recorded ?Last Taken ?Type fluticasone propionate 50 1 spray intranasal PRN PRN 0 09/03/21 Unknown History mcg/actuation nasal allergies spray,suspension (Flonase Allergy Relief) multivit-min no.71-iron fum 28 cap PO 04/19/25 History mg-folate no.1 1 mg-dha 300 mg capsule (PNV-Clare) famotidine 20 mg tablet (Pepcid) 20 mg PO QDAY 5 04/18/25 History fexofenadine 180 mg tablet 180 mg PO QDAY 04/07/2505/02 History (Mary Allergy) magnesium 200 mg tablet 200 mg PO QDAY 04/07/2504/08 History Allergy/AdvReac Type Severity Reaction Status Date / Time No Known Allergies Allergy Verified 04/19/25 05:45 Family History Father Heart disease Mother Diabetes Other Hypertension Surgical History History of wisdom tooth extraction Social History adopted: No household members: spouse and children housing: house number of children: 2 current occupational status: employed current occupation: [employer] current occupational exposures/hazards: No pets and animals: Yes pets and animals: dog(s) history of recent travel: No sexually active: Yes Smoking Status: Never smoker alcohol intake: current details: socially- not while substance use type: does not use well-balanced diet: daily or most days caffeine: Yes Type: coffee Number of servings: 1 eating out: 1-3 times/week during the past year weight has: remained stable what type of physical activity do you participate in: none angel/mosque: Confucianism seatbelt use: always do you feel safe at home: Yes additional social history: Spouse - Tyrone, Jan and tamar children History 3 Elective abortions Hx Para 2 Spontaneous abortions Hx # Term Pregnancies Ectopic pregnancies Hx # Pregnancies Multiple births # of living children 2 Past Pregnancies Del. Date Name GA/Weeks Outcome Route Bth Weight Infant Gen Labor Lgth Anesthesia Del Locatn Provider FOB 01/05/19 Waqas 41 live - full term 7#13oz Male epi dural [facility] Kate Hansen 09/04/21 Tamar 39 live - full term 8# Female epid ural [facility] Cooper Mio Hansen Delivery Date: 01/05/19 Last Updated by: Courtney Lovett pitocin used after labor started Visit Details Expected Delivery Route/Plan Labor Preferences- CB/BF classes: no labor support person: Tyrone labor intervention preferences: [] pain management options preferred: epidural cut cord/dad catch: YES : yes PP control planned: discussed discussed possible routes of delivery and associated risks: [] special requests: [] Plans Covid status: [] Flu vaccine: declined Tdap vaccine: given Rhogam: NA LARC form signed: yes movement and labor precautions reviewed. Problem list reviewed and updated with the most current plan of care details and appropriate orders placed. Relevant counseling for the gestational age provided. Continue routine care and follow up unless otherwise noted in visit notes/problem list details OB Flowsheet Initial Weight: 161 lb Date -?-?-?-?-?-?-?-?-?-?-?-?- EGA Weight BP Urine Prot -?-?-?-?-?-?-?-?-?-?-?-?- Glucose FHR FuHt Pres Dilation -?-?-?-?-?-?-?-?-?-?-?-?- Effaced St Visit Note 09/20/24 -?-?-?-?-?-?-?-?-?-?-?-?- 9w 4d 161 lb 6 oz (+6 oz) 117/81 -?-?-?-?-?-?-?-?-?-?-?-?- 188 -?-?-?-?-?-?-?-?-?-?-?-?- KW- CRL cons wit h dates. declines NIPT 10/23/24 -?-?-?-?-?-?-?-?-?-?-?-?- 14w 2d 165 lb 2 oz (+4 lb 2 oz) 119/77 Negative -?-?-?-?-?-?-?-?-?-?-?-?- Negative 145 -?-?-?-?-?-?-?-?-?-?-?-?- JV- no complaint s today. needs insurance info filed out. declines NIPT. 11/19/24 -?-?-?-?-?-?-?-?-?-?-?-?- 18w 1d 170 lb 2 oz (+9 lb 2 oz) 122/78 Negative -?-?-?-?-?-?-?-?-?-?-?-?- Negative 150 -?-?-?-?-?-?-?-?-?-?-?-?- SM- no vb crampi ng doing well 12/18/24 -?-?-?-?-?-?-?-?-?-?-?-?- 22w 2d 172 lb 6 oz (+11 lb 6 oz) 112/77 Negative -?-?-?-?-?-?-?-?-?-?-?-?- Negative 145 -?-?-?-?-?-?-?-?-?-?-?-?- MH-No VB, LOF. G ood FM. Larc. MG for leg cramps 01/15/25 -?-?-?-?-?-?-?-?-?-?-?-?- 26w 2d 175 lb 4 oz (+14 lb 4 oz) 109/73 Negative -?-?-?-?-?-?-?-?-?-?-?-?- Negative 140 26 -?-?-?-?-?-?-?-?-?-?-?-?- SM- no vb lof go od f mno reuglar ctx cbc gct today 02/05/25 -?-?-?-?-?-?-?-?-?-?-?-?- 29w 2d 179 lb 4 oz (+18 lb 4 oz) 112/71 Negative -?-?-?-?-?-?-?-?-?-?-?-?- Negative 135 28 -?-?-?-?-?-?-?-?-?-?-?-?- MH-No VB, LOF. G ood FM. tdap. 02/22/25 -?-?-?-?-?-?-?-?-?-?-?-?- 31w 5d 178 lb 7 oz (+17 lb 7 oz) 109/74 Negative -?-?-?-?-?-?-?-?-?-?-?-?- Negative 140 30 -?-?-?-?-?-?-?--?-?-?-?-?- Sm- no vb lof go od fm no regular ctx 03/08/25 -?-?-?-?-?-?-?-?-?-?-?-?- 33w 5d 183 lb 3 oz (+22 lb 3 oz) 123/77 Negative -?-?-?-?-?-?-?-?-?-?-?-?- Negative 120 34 -?-?-?-?-?-?-?-?-?-?-?-?- KW- no vb/lof/ct x. good fm. Flu shot today. 03/19/25 -?-?-?-?-?-?-?-?-?-?-?--?- 35w 2d 185 lb 2 oz (+24 lb 2 oz) 108/71 -?-?-?-?-?-?-?-?-?-?-?-?- 130 36 -?-?-?-?-?-?-?-?-?-?-?-?- KW- no vb/lof/ct x. good fm 03/26/25 -?-?-?-?-?-?-?-?-?-?-?-?- 36w 2d 186 lb 2 oz (+25 lb 2 oz) 112/73 Negative -?-?-?-?-?-?-?-?-?-?-?-?- Negative 125 36 Cephalic 1 -?-?-?-?-?-?-?-?-?-?-?-?- 60 -2 KW- no vb/ lof/ctx. good fm. GBS today. NST for possible bradycardia (100) on doppler 04/03/25 -?-?-?-?-?-?-?-?-?-?-?-?- 37w 3d 188 lb 9 oz (+27 lb 9 oz) 110/76 Negative -?-?-?-?-?-?-?-?-?-?-?-?- Negative 127 37 Cephalic 1 -?-?-?-?-?-?-?-?-?-?-?-?- 60 -4 JV- station very high today. pt has cough and cold. remedies discussed. GBS neg 04/11/25 -?-?-?-?-?-?-?-?-?-?-?-?- 38w 4d 187 lb 1 oz (+26 lb 1 oz) 125/88 Negative -?-?-?-?-?-?-?-?-?-?-?-?- Negative 141 38 Cephalic 1 -?-?-?-?-?-?-?-?-?-?-?-?- 60 -4 JV- still floating station. cold is better. does not want IOL at this point. 04/18/25 -?-?-?-?-?-?-?-?-?-?-?-?- 39w 4d 187 lb (+26 lb) 116/82 Negative -?-?-?-?-?-?-?-?-?-?-?-?- Negative 125 38 Cephalic 3 -?-?-?-?-?-?-?-?-?-?-?-?- 60 -2 Sm- n obv lof good fm n oregular ctx NST FHR Rate Baby A Baseline: 125 Variability:: Moderate Accelerations:: 15 x 15 Decelerations:: None NST Reactive:: Yes FHR Category:: Category I Uterine Activity:: 4-5 ROS Constitutional Constitutional: Denies change in weight, fatigue, fever(s), headache(s), poor appetite or weakness Eyes Eyes: Denies blurry vision, change in vision, floaters, seeing flashes or spots in vision ENT HEENT: Denies dizziness, headache(s), loss taste/smell or sore throat Cardiovascular Cardiovascular: Denies chest pain, dizziness, dyspnea, irregular heart rhythm, lightheadedness, palpitations or rapid heart rate Respiratory/Chest Respiratory/Chest: Denies change in mental status, chest tightness, cough, dyspnea or breast pain Gastrointestinal Gastrointestinal: Denies anorexia, chewing difficulty, constipation, diarrhea or weight changes Genitourinary Genitourinary: Denies difficulty urinating, dysuria, flank pain, genital pain, urinary frequency or urinary urgency Musculoskeletal Musculoskeletal: Denies back pain, difficulty walking, extremity pain, joint pain, muscle cramps or muscle weakness Integumentary Integumentary: Denies lesions or unusual bruising Neurologic Neurologic: Denies abnormal movements, abnormal speech, dizziness, numbness, seizure-like activity, syncope or weakness Psychiatric Psychiatric: Denies behavioral changes, change in appetite, confusion, depression, homicidal ideation, suicidal ideation or suicidal thoughts Endocrine Endocrinology: Denies excessive sweating, polydipsia or polyuria Hematologic/Lymphatic Hematologic/Lymphatic: Denies anemia Allergic/Immunologic Allergic/Immunologic: Denies itchy eyes, lip swelling, throat swelling, tongue swelling or wheezing Vital Signs Vital Signs Vital Signs: 04/19/25 05:41 04/19/25 05:41 04/19/25 05:41 Temperature 98.4 F Temperature Source Pulse Rate 98 Respiratory Rate Blood Pressure 120/75 BP Systolic 120 BP Diastolic 75 Pulse Ox 04/19/25 05:41 04/19/25 07:23 04/19/25 07:23 Temperature Temperature Source Pulse Rate 84 Respiratory Rate 14 Blood Pressure 115/65 BP Systolic 115 BP Diastolic 65 Pulse Ox 04/19/25 07:23 04/19/25 07:23 04/19/25 07:23 Temperature 98.8 F Temperature Source Temporal Pulse Rate Respiratory Rate Blood Pressure BP Systolic BP Diastolic Pulse Ox 95 04/19/25 07:23 04/19/25 07:23 04/19/25 07:23 Temperature Temperature Source Pulse Rate 85 Respiratory Rate 16 Blood Pressure BP Systolic BP Diastolic Pulse Ox 95 04/19/25 07:23 04/19/25 08:08 04/19/25 08:08 Temperature 98.8 F Temperature Source Pulse Rate 79 Respiratory Rate Blood Pressure 107/67 BP Systolic 107 BP Diastolic 67 Pulse Ox 04/19/25 08:08 Temperature 99.0 F Temperature Source Pulse Rate Respiratory Rate Blood Pressure BP Systolic BP Diastolic Pulse Ox Weight Weight: 190 lb Body Mass Index (BMI) 31.6 PRE- weight 154 lb PRE- Body Mass Index 25.6 (BMI) Physical Exam Const alert, oriented x3 and no apparent distress General Appearance: cooperative Orientation / Consciousness: awake HEENT normocephalic Neck full ROM Lymph Lymphatic: no lymphadenopathy noted Chest inspection of chest normal Resp normal respiratory effort and normal air movement Effort and Inspection: able to speak in complete sentences and symmetric chest movement GI soft to palpation and non-tender Inspection: gravid Palpation: soft; Negative for tender external exam normal Back/Spine normal to inspection Extremity normal to inspection and full ROM Skin no rashes or lesions noted Psych mental status grossly normal Appearance: grossly normal Speech: normal speech Labs Labs Labs: Blood Type O POSITIVE Antibody Screen NEGATIVE Hct, (37-47) 33.1 % L Hgb, (12.0-15.0) 11.1 g/dL L Syphilis Total Ab, (Nonreactive) Nonreactive Rubella IgG Antibody, (Nonreactive) REAC Hep Bs Antigen, (Nonreactive) Nonreactive Hepatitis C Antibody, (Nonreactive) Nonreactive Hepatitis C Ab (EIA), (0.0-0.9) 0.1 s/co ratio Chlamydia DNA ([place]), (Negative) Negative N.gonorrhoeae DNA ([place]), (Negative) Negative HIV 1&2 Antibody, (Nonreactive) Nonreactive Glucose 1 Hr 50 gm, (70-140) 104 mg/dL Rhogam given: No Miscellaneous Test Assessment & Plan (1) Active labor: PLAN: Patient presents IAL, plan expectant management for , pitocin/AROM PRN if needed. Pain management: plans epidural. GBS neg. Management of any complications: none I have reviewed the [facility] and made any clinically relevant updates. Dr Diop aware of assessment, plan and admission. agrees with above (2) URI (upper respiratory infection): QUALIFIERS: URI type: unspecified URI Qualified Code(s): J06.9 - Acute upper respiratory infection, unspecified (3) : QUALIFIERS: Weeks of gestation: 39 weeks Qualified Code(s): Z3A.39 - 39 weeks gestation of COMMENT: GBS neg, declined NIPT & Carrier, afp testing. nl anatomy (4) Supervision of normal : QUALIFIERS: Normal : other normal Trimester: second trimester Qualified Code(s): Z34.82 - Encounter for supervision of other normal , second trimester COMMENT: PRR, , DONNY 04/21/25,boy Tamar Zheng Tyrone Charges/Coding Multi Select Codes Urinary/Genital Urinary/Genital CPT Codes: No Charge
[2025-04-19] MEDS: fentaNYL-bupivacaine (epidural) 100 ML BAG EPIDURAL (10:57)
[2025-04-19] MEDS: Lactated Ringers 1,000 ML 200 ML IV (11:39)
--- NOTE | 2025-04-19 12:17 | PN_ITS ---
Progress Note comfortable with epidural current tracing: FHT: 130 Moderate variability reactive occasional deceleration overall category I tracing-reassuring [place]: 3-4 Contractions Membranes:ruptured remains clear bladder emptied for 700cc SVE:/-1 A/P: Continue with position changes Start pitocin per protocol Epidural per anesthesia GBS neg Anticipate Dr Diop aware of above assessment and agrees with plan of care Assessment & Plan Assessment/Plan (1) Active labor: (2) URI (upper respiratory infection): QUALIFIERS: URI type: unspecified URI Qualified Code(s): J06.9 - Acute upper respiratory infection, unspecified (3) : QUALIFIERS: Weeks of gestation: 39 weeks Qualified Code(s): Z3A.39 - 39 weeks gestation of (4) Supervision of normal : QUALIFIERS: Normal : other normal Trimester: second trimester Qualified Code(s): Z34.82 - Encounter for supervision of other normal , second trimester Multi Select Codes Urinary/Genital Urinary/Genital CPT Codes: No Charge
[2025-04-19] MEDS: Oxytocin 15 Units/NS 250ml 15 UNITS/250 ML IV.SOLN 334 UNITS IV (14:40)
--- NOTE | 2025-04-19 14:55 | OB.VAGDELI_ITS ---
Assessment & Plan (1) Vaginal delivery: COMMENT: RAFFI RAMSEY marcus Bragany (2) Active labor: (3) URI (upper respiratory infection): QUALIFIERS: URI type: unspecified URI Qualified Code(s): J06.9 - Acute upper respiratory infection, unspecified (4) : QUALIFIERS: Weeks of gestation: 39 weeks Qualified Code(s): Z3A.39 - 39 weeks gestation of COMMENT: GBS neg, declined NIPT & Carrier, afp testing. nl anatomy (5) Supervision of normal : QUALIFIERS: Normal : other normal Trimester: second trimester Qualified Code(s): Z34.82 - Encounter for supervision of other normal , second trimester COMMENT: PRR, , DONNY 04/21/25,marcus Alan, Libby Tyrone Maternal Data Information DONNY Calculator Estimated Delivery Date Method Current WG Current Estimate 04/21/25 LMP (Certain) 39w 5d Other Estimates 04/21/25 Ultrasound #1 39w 5d Final DONNY: 04/21/25 Final DONNY Source: US >20 weeks Gestational age: 39.5 Vaginal Delivery Maternal Presentation Maternal Presentation: Active Labor Maternal Presentation: Presented to unit for active labor at 39.5 weeks Vaginal Delivery Information Procedure Performed: Spontaneous Vaginal Delivery Surgeon/Practitioner: Petra Goncalves Date of Procedure: 04/19/25 Pre-Procedure Diagnosis: see problem list Post-Procedure Diagnosis: same Type of anesthesia: Epidural Estimated Blood Loss: 300 Time of Delivery: 14:35 Findings Description of procedure: Progressed well to 10cm dilated and made steady progress with effective maternal pushing. Delivered the head in LUIS presentation. The head was delivered atraumatically and no nuchal cord was identified. The anterior and posterior shoulders delivered without complication followed by the rest of the and the was placed on the maternal abdomen. Delayed cord clamping was employed for approximately 3 minutes. Cord was clamped and cut and gentle traction was applied to the cord and the placenta delivered spontaneously. Immediately following, it was noted to be intact with a 3 vessel cord. Uterine bleeding stable but uterine atony noted-firmed with massage. Methergine given and remained firm. The perineum and vagina were inspected and noted to have a first degree laceration which was repaired with 3-0 Vicryl in the usual fashion. EBL was 300cc. Patient and infant tolerated delivery well. Apgars 8/9. Dr Diop notified of vaginal delivery and orders reviewed. Physician agrees with current plan of care. Presentation: Vertex Amniotic Membrane Rupture Type: Artificial Amniotic Fluid Description: Clear Placental Delivery Description: Spontaneous Placenta Disposition: [facility] Specimen collected: No Cord Vessel Description: 3 Vessels Cord Entanglement: None Infant A Gender: Male (1 minute): 8 (5 minute): 9 Delayed Cord Clamping: Yes It Manager revolving inventory clerk: No Post Vaginal Deli Medications given after delivery: IV Pitocin and IM Methergin Episiotomy Description: None Laceration: 1st degree Complication Complications: No Multi Select Codes Urinary/Genital Urinary/Genital CPT Codes: 97458 [facility]
--- NOTE | 2025-04-19 14:58 | DCINST_ITS ---
Discharge Instructions DC O2, CPAP, BIPAP needs Home O2 Discharge instructions: No Dressing / Incision Discharge Activity: Return to Normal Activity May resume sexual activity in: 6-8 weeks Dressing / Incision Call your doctor if you observe: Fever of 101 or Higher, Coldness, Increased Pain, Numbness or Tingling, Change in Color, Inability to urinate, Inability to have a bowel movement, Using more than 1 pad per hour, Shortness of breath, Dizziness, Fainting spells, Swelling in the ankles, Chest pain, Increased palpitations (irregular heartbeat), Calf discomfort and Uncontrolled pain Follow Up Care Please Follow Up With: Petra Goncalves CNM When: Please call the office to schedule your follow up appointment in 6 weeks. If you had high blood pressure please call to schedule an appointment in 2 weeks. Test Results: Test results from this visit will be discussed in further detail at your follow- up appointment, if applicable. Discharge Plan Admission Admit Date/Time: 04/19/25 06:06 Attending Provider: Petra Goncalves Primary Care Provider: Jose Hale Discharge Orders/Prescriptions Prescriptions: No Action PNV-[place] 28-1-300 mg capsule PO fexofenadine [Mary Allergy] 180 mg tablet 180 mg PO QDAY famotidine [Pepcid] 20 mg tablet 20 mg PO QDAY magnesium 200 mg tablet 200 mg PO QDAY fluticasone propionate [Flonase Allergy Relief] 50 mcg/actuation [place],Suspension 1 spray INTRANASAL PRN PRN (Reason: allergies) Referrals / Follow Up: Jose Hale MD [Primary Care Provider, Family Practice]
[2025-04-19] MEDS: Oxytocin 15 Units/NS 250ml 15 UNITS/250 ML IV.SOLN 83 UNITS IV (15:30)
[2025-04-19] MEDS: 0.9% Saline Lock 10 ML Syringe IV (17:39)
[2025-04-19] MEDS: Sodium Chloride 0.65% 1 SPRAY SPRAY.BTL NASAL (21:13)
[2025-04-20] VITALS: BP 99/62; PULSE 82; RESP 16; TEMP 36.4; O2SAT 99
[2025-04-20 06:23] VITALS: BP 98/64; PULSE 64; RESP 16; TEMP 36.4; O2SAT 96
[2025-04-20 09:30] VITALS: BP 98/55; PULSE 69; RESP 18; TEMP 36.7; O2SAT 95
--- NOTE | 2025-04-20 09:43 | PN.OBGYN_ITS ---
Subjective Subjective Patient doing well without complaints. Tolerating PO. Ambulating and voiding without difficulty. Feeding well. Denies chest pain, shortness of breath, calf pain/swelling, fevers, chills, lightheadedness. Objective Data Objective Data Vital Signs: Vital Signs Temp Pulse Resp BP Pulse Ox O2 Del Method 97.6 F L 64 16 98/64 96 Room Air 04/20/25 06:23 04/20/25 06:23 04/20/25 06:23 04/20/25 06:23 04/20/25 06:23 04/20/25 06:23 Oxygen Delivery Method Room Air Weight: 190 lb Body Mass Index (BMI) 31.6 Intake & Output: Intake and Output for Last 24 Hours 04/18/25 04/19/25 04/20/25 23:59 23:59 23:59 Intake Total 3800.00 / 3800.00 Output Total 3050 / 3050 Balance 750.00 / 750.00 Lab / Micro Data 04/19/25 06:30 ROS Constitutional Constitutional: Reports systems reviewed and no addt'l complaints, except as documented; Denies anorexia or headache(s) Cardiovascular Cardiovascular: Reports systems reviewed and no addt'l complaints, except as documented; Denies dizziness, dyspnea, nausea or tachypnea Respiratory/Chest Respiratory/Chest: Reports systems reviewed and no addt'l complaints, except as documented; Denies cough, dyspnea, shortness of breath at rest or tachypnea Gastrointestinal Gastrointestinal: Reports systems reviewed and no addt'l complaints, except as documented; Denies abdominal pain, constipation or nausea Genitourinary Genitourinary: Reports systems reviewed and no addt'l complaints, except as documented; Denies burning urination, difficulty urinating, dysuria, urinary frequency or urinary incontinence Musculoskeletal Musculoskeletal: Reports systems reviewed and no addt'l complaints, except as documented Integumentary Integumentary: Reports systems reviewed and no addt'l complaints, except as documented Neurologic Neurologic: Reports systems reviewed and no addt'l complaints, except as documented; Denies abnormal speech, dizziness or headache(s) Psychiatric Psychiatric: Reports systems reviewed and no addt'l complaints, except as documented Endocrine Endocrinology: Reports systems reviewed and no addt'l complaints, except as documented Hematologic/Lymphatic Hematologic/Lymphatic: Reports systems reviewed and no addt'l complaints, except as documented Physical Exam Const alert, oriented x3 and no apparent distress Neck full ROM Resp normal respiratory effort, normal air movement and no retractions Effort and Inspection: able to speak in complete sentences and symmetric chest movement GI soft to palpation Bladder / Kidney Exam: bladder normal to palpation Uterus Palpation: uterus fundus firm Extremity normal to inspection and full ROM Psych mental status grossly normal, thought process normal and cooperative Assessment & Plan (1) Vaginal delivery: COMMENT: RAFFI Jorge PLAN: s/p PPD # 1 1. routine post delivery care 2. breast feeding- support given 3. rh positive 4. rubella immune 5. Discharge home (2) Active labor: (3) URI (upper respiratory infection): QUALIFIERS: URI type: unspecified URI Qualified Code(s): J06.9 - Acute upper respiratory infection, unspecified (4) : QUALIFIERS: Weeks of gestation: 39 weeks Qualified Code(s): Z 3A.39 - 39 weeks gestation of COMMENT: GBS neg, declined NIPT & Carrier, afp testing. nl anatomy (5) Supervision of normal : QUALIFIERS: Normal : other normal T rimester: second trimester Qualified Code(s): Z34.82 - Encounter for supervision of other normal , second trimester COMMENT: PRR, , DONNY 04/21/25,Libby Smith Tyrone Charges/Coding Multi Select Codes Urinary/Genital Urinary/Genital CPT Codes: No Charge
[2025-04-20 13:16] VITALS: BP 103/64; PULSE 67; RESP 16; TEMP 36.6; O2SAT 94
--- NOTE | 2025-04-24 15:47 | NURSING ---
1547-This [facility] called spoke with pt for follow up phone call. Pt reports doing well, vag bleeding decreasing, and s/sx of when to call the MD. Pt states feeding is going better, Vinneys weight is going up, declines needing f/u w .
== END 2025-04-20 16:15 | disposition home or self-care (01) | DRG 807 ==
LOC: WPOUT 06:16 → WP 06:16
PROVIDERS: Obstetrics & Gynecology; Admitting Provider Advanced Practice Midwife; PCP Family Medicine; Referring Provider Advanced Practice Midwife; Visit Provider Advanced Practice Midwife
DX: O76 Abnormality in fetal heart rate and rhythm complicating labor and delivery (principal); Z37.0 Single live birth; J06.9 Acute upper respiratory infection, unspecified; J30.2 Other seasonal allergic rhinitis; O62.2 Other uterine inertia; O99.52 Diseases of the respiratory system complicating childbirth; O70.0 First degree perineal laceration during delivery; Z3A.39 39 weeks gestation of pregnancy
CPT/HCPCS: 59025; 59050; 85025; 86780; 86850; 86900; 86901; 99221; A4216; G0378; J2405